=== PATIENT | female | born 1935 | race Caucasian/White ===

== ENCOUNTER 2016-10-06 19:02 | Emergency (ER) | payer MEDICARE, MEDICAID ==
[2016-10-06] MEDS ORDERED: NORMAL SALINE 500 ML IV PRN (20:36)
[2016-10-06] MEDS ORDERED: ONDANSETRON HCL INJ/PF 4 MG/2 ML SDV IV ONE (20:36)
[2016-10-06] MEDS ORDERED: MORPHINE SULFATE 10 MG/ML INJ IV ONE (20:36)
--- NOTE | 2016-10-06 20:37 | ER Document Report ---
ED General - General Chief Complaint: Abdominal Pain Stated Complaint: UPPER ABDOMINAL PAIN Time Seen by Provider: 10/06/16 20:21 Mode of Arrival: Ambulatory Information source: Patient Notes: This is a 80-year-old female with a history of COPD, diabetes, hypertension who presents to the emergency room with acute onset of upper abdominal pain since 1700. Denies nausea, vomiting, blood in the stool. Patient denies fever. PMHx: COPD, DM, HTN MEDS: Isosorbide 30 mg Metoprolol 25 mg BID KCl 10 daily Omeprazole Allopurinol 300 daily Lisinopril 10 mg daily Atorvastatin 40 mg daily NKDA TRAVEL OUTSIDE OF THE [place] IN LAST 30 DAYS: No - HPI Onset: Just prior to arrival Onset/Duration: Gradual Quality of pain: Dull Severity: Moderate Pain Level: 4 Associated symptoms: denies: Chills, Fever, Shortness of breath Exacerbated by: Denies Relieved by: Denies Similar symptoms previously: No Recently seen / treated by doctor: No - Related Data Allergies/Adverse Reactions: Penicillins Allergy (Verified 08/07/12 15:01) rash Past Medical History - General Information source: Patient - Social History Smoking Status: Former Smoker Cigarette use (# per day): No Chew tobacco use (# tins/day): No Frequency of alcohol use: None Drug Abuse: None Lives with: Family Family History: Other Patient has suicidal ideation: No Patient has homicidal ideation: No - Past Medical History Cardiac Medical History: Reports: Hx Congestive Heart Failure, Hx Hypercholesterolemia, Hx Hypertension Denies: Hx DVT Pulmonary Medical History: Denies: Hx Tuberculosis Endocrine Medical History: Reports: Hx Diabetes Mellitus Type 2 Malignancy Medical History: Reports: Hx Breast Cancer - LEFT MASTECTOMY GI Medical History: Reports: Hx Gastroesophageal Reflux Disease Musculoskeltal Medical History: Reports Hx Arthritis Psychiatric Medical History: Reports: Hx Bipolar Disorder, Hx Depression Past Surgical History: Reports: Hx Mastectomy - left side. Denies: Hx Pacemaker - Immunizations Hx Diphtheria, Pertussis, Tetanus Vaccination: No Review of Systems - Review of Systems Constitutional: denies: Chills, Fever EENT: No symptoms reported Cardiovascular: No symptoms reported Respiratory: No symptoms reported Gastrointestinal: See HPI Genitourinary: No symptoms reported Female Genitourinary: No symptoms reported Musculoskeletal: No symptoms reported Skin: No symptoms reported Hematologic/Lymphatic: No symptoms reported Neurological/Psychological: No symptoms reported Physical Exam - Vital signs Vitals: Temp Pulse Resp BP Pulse Ox 98.2 F 82 20 149/75 H 94 10/06/16 20:00 10/06/16 20:00 10/06/16 20:00 10/06/16 20:00 10/06/16 20:00 Notes: Physical exam: GENERAL:80-year-old female, oriented 3, complaining of upper abdominal pain. HEAD: Atraumatic, normocephalic. EYES: Pupils equal round and reactive to light, extraocular movements intact, sclera anicteric, conjunctiva are normal. ENT: TMs normal, nares patent, oropharynx clear without exudates. Moist mucous membranes. NECK: Normal range of motion, supple without lymphadenopathy or JVD. LUNGS: Breath sounds clear to auscultation bilaterally and equal. No wheezes rales or rhonchi. HEART: Regular rate and rhythm without murmurs, rubs or gallops. ABDOMEN: Soft, normoactive bowel sounds. Distended abdomen. She has tenderness in the epigastrium and right upper quadrant. Her lower quadrant seems to be nontender. No guarding without rebound Rectal: Brown stool, sent for study EXTREMITIES: Normal range of motion, no pitting or edema. No clubbing or cyanosis. NEUROLOGICAL: Cranial nerves II through XII grossly intact. Normal speech, normal gait. PSYCH: Normal mood, normal affect. SKIN: Warm, Dry, normal turgor, no rashes or lesions noted. Course - Re-evaluation Re-evalutation: 10/07/16 00:37 NOTE: The patient presents with gallstone pancreatitis. LFTs are elevated consistent with choledocholithiasis. She does not have fever. Her white count is normal. Currently she is n.p.o., and being treated with IV fluids, IV pain medicine, IV antiemetics. I have GI services here at this hospital, so the plan will be to transfer the patient to another facility. I have Contacted [facility] and [facility] and [place] and GI/ERCP services are not available at these to institutions. I have contacted Dr Victoria read over [facility] extremity and they are willing to accept the patient and have her evaluated by GI. Immediately I discussed the plan with the patient and she is agreeable to transfer to [facility] 10/07/16 01:19 - Vital Signs Vital signs: Temp Pulse Resp BP Pulse Ox 98.2 F 101 H 19 128/59 H 94 10/07/16 01:04 10/07/16 01:04 10/07/16 01:04 10/07/16 01:04 10/07/16 01:04 - Laboratory Result Diagrams: 10/06/16 21:00 10/06/16 21:00 Laboratory results interpreted by me: 10/06/16 10/06/16 10/06/16 21:00 21:00 21:00 RDW 17.3 H Seg Neutrophils % 83.7 H Lymphocytes % 8.4 L Absolute Neutrophils 8.8 H Sodium 145.9 H Glucose 177 H Total Bilirubin 1.5 H Direct Bilirubin 1.1 H AST 348 H ALT 187 H Alkaline Phosphatase 230 H Lipase 832.1 H Urine Blood SMALL H Urine Nitrite POSITIVE H - Diagnostic Test Radiology reviewed: Image reviewed, Reports reviewed - Ultrasound shows gallstones. CT of the abdomen shows a dilated common bile duct Critical Care Note - Critical Care Note Total time excluding time spent on procedures (mins): 60 Discharge - Discharge Clinical Impression: Pancreatitis, Gallstones Condition: Stable Disposition: [facility] Referrals: DARREN ALEXANDER, ZENAIDA [Primary Care Provider] - Follow up as needed
[2016-10-06 21:13] LABS: ABSOLUTE BASOPHILS # (AUTO) 0.1 10^3/uL (0.0-0.2); ABSOLUTE EOSINOPHILS # (AUTO) 0.3 10^3/uL (0.0-0.6); ABSOLUTE LYMPHOCYTES (AUTO) 0.9 10^3/uL (0.5-4.7); ABSOLUTE MONOCYTES (AUTO) 0.4 10^3/uL (0.1-1.4); ABSOLUTE NEUT (AUTO) 8.8 10^3/uL (1.7-8.2); BASOPHILS % (AUTO) 0.8 % (0-2); EOSINOPHILS % (AUTO) 3.1 % (0-6); HEMOGLOBIN 12.2 g/dL (12.0-15.5); HGB HCT DIFFERENCE -1.4; LYMPHOCYTES % (AUTO) 8.4 % (13-45); MEAN CORPUSCULAR HEMOGLOBIN 28.9 pg (27.0-33.4); MEAN CORPUSCULAR HGB CONC 32.1 g/dL (32.0-36.0); MEAN CORPUSCULAR VOLUME 90 fl (80-97); RED BLOOD COUNT 4.22 10^6/uL (3.72-5.28); RED CELL DISTRIBUTION WIDTH 17.3 % (11.5-14.0); SEGMENTED NEUTROPHILS % (AUTO) 83.7 % (42-78); WHITE BLOOD COUNT 10.5 10^3/uL (4.0-10.5)
[2016-10-06 21:23] LABS: APPEARANCE,URINE SLIGHTLY-CLOUDY; BILIRUBIN,URINE NEGATIVE (NEGATIVE); GLUCOSE, URINE NEGATIVE (NEGATIVE); KETONES,URINE NEGATIVE (NEGATIVE); LEUKOCYTE ESTERASE,URINE NEGATIVE (NEGATIVE); NITRITE,URINE POSITIVE (NEGATIVE); PROTEIN,URINE NEGATIVE (NEGATIVE); UROBILINOGEN,URINE NEGATIVE mg/dL (<2.0)
[2016-10-06 21:28] LABS: ALANINE AMINOTRANSFERASE 187 U/L (9-52); ALBUMIN 4.5 g/dL (3.5-5.0); ALKALINE PHOSPHATASE 230 U/L (38-126); ANION GAP 17 (5-19); ASPARTATE AMINO TRANSFERASE 348 U/L (14-36); BILIRUBIN,DIRECT 1.1 mg/dL (0.0-0.4); BILIRUBIN,TOTAL 1.5 mg/dL (0.2-1.3); BLOOD UREA NITROGEN 20 mg/dL (7-20); CALCIUM 9.6 mg/dL (8.4-10.2); CARBON DIOXIDE 25 mmol/L (22-30); CHLORIDE 104 mmol/L (98-107); CREATININE RESULT 0.76 mg/dL (0.52-1.25); GLUCOSE 177 mg/dL (75-110); LIPASE 832.1 U/L (23-300); POTASSIUM 3.9 mmol/L (3.6-5.0); SODIUM 145.9 mmol/L (137-145); TOTAL PROTEIN 8.1 g/dL (6.3-8.2)
[2016-10-06 21:29] LABS: PROTHROMBIN TIME 13.4 SEC (11.4-15.4)
[2016-10-06] MEDS ORDERED: NORMAL SALINE 1000 ML 1,000 ML IV PRN (21:30)
--- NOTE | 2016-10-06 23:11 | RADIOLOGY REPORT (SQ) ---
EXAM DESCRIPTION: U/S ABDOMEN LIMITED W/O DOP COMPLETED DATE/TIME: 10/06/2016 10:21 pm REASON FOR STUDY: upper abdominal pain r/o GB disease COMPARISON: None. TECHNIQUE: Dynamic and static grayscale images acquired of the right upper quadrant and recorded on PACS. Additional selected color Doppler and spectral images recorded. LIMITATIONS: Study limited due to acoustical interference from fat or from air in the bowel. FINDINGS: PANCREAS: Parts or all of the pancreas poorly seen secondary to acoustical interference fr om fat or from air in the bowel. LIVER: Echotexture is coarse with increased echogenicity consistent with fatty infiltration. No mass es. LIVER VASCULATURE: Normal directional flow of the main portal vein and hepatic veins. GALLBLADDER: Multiple stones. Normal wall thickness. No pericholecystic fluid. ULTRASOUND-DETECTED BOWEN'S SIGN: Negative. INTRAHEPATIC DUCTS AND COMMON DUCT: CBD and intrahepatic ducts normal caliber. No filling defects. INFERIOR VENA CAVA: Normal flow. AORTA: No aneurysm. RIGHT KIDNEY: Normal size. Normal echogenicity. No solid or suspicious masses. No hydronephrosis. No calcifications. PERITONEAL CAVITY AND RIGHT PLEURAL SPACE: No ascites or effusions. OTHER: Stomach filled with debris-food. IMPRESSION: Gallstones. No acute inflammatory changes in the right upper quadrant.FATTY LIVER. PANC REAS PARTIALLY OR COMPLETELY OBSCURED. TECHNICAL DOCUMENTATION: JOB ID: [id number] [employer]- All Rights Reserved
--- NOTE | 2016-10-07 00:21 | RADIOLOGY REPORT (SQ) ---
EXAM DESCRIPTION: CT ABD/PELVIS WITH IV ONLY COMPLETED DATE/TIME: 10/06/2016 11:41 pm REASON FOR STUDY: abd pain COMPARISON: None. TECHNIQUE: CT scan of the abdomen and pelvis performed using helical scanning technique with dynamic intravenous contrast injection. No oral contrast. Images reviewed with lung, soft tissue, and bone windows. Reconstructed coronal and sagittal MPR images reviewed. Delayed images for evaluation of the urinary system also acquired. All images stored on PACS. All CT scanners at this facility use dose modulation, iterative reconstruction, and/or weight based d osing when appropriate to reduce radiation dose to as low as reasonably achievable (ALARA). [facility]: Dose Right [facility]: CareDose [facility]: Dose Right [facility]: Teradose 4D [facility]: [employer] CONTRAST TYPE AND DOSE: contrast/concentration: Isovue 370.00 mg/ml; Total Contrast Delivered: 100.0 ml; Total Saline Delivered: 72.0 ml RENAL FUNCTION: Creatinine 0.8 RADIATION DOSE: 2195 LIMITATIONS: None. FINDINGS: LOWER CHEST: No significant findings. No nodules or infiltrates. Small coronary arterial calcification. Small atelectasis or scar bilateral lower lobes. LIVER: Normal size. No masses. Minimal prominence of intrahepatic ducts. SPLEEN: Normal size. No focal lesions. PANCREAS: No masses. No significant calcifications. No adjacent inflammation or peripancreatic fluid collections. Pancreatic duct not dilated. GALLBLADDER: Gallstones. No inflammatory changes to suggest cholecystitis. 0.[address] du [address]. ADRENAL GLANDS: 1.4 cm likely left adrenal adenoma without suspicious interval change compared with [facility] CT, 07/18/2014. RIGHT KIDNEY AND URETER: No solid masses. No significant calcifications. No hydronephrosis or hyd roureter. Mild perinephric fat stranding. LEFT KIDNEY AND URETER: No solid masses. No significant calcifications. No hydronephrosis or hydr oureter. Mild perinephric fat stranding. AORTA AND VESSELS: No aneurysm. No dissection. Renal arteries, SMA, celiac without stenosis. Atheros clerosis. RETROPERITONEUM: No retroperitoneal adenopathy, hemorrhage or masses. BOWEL AND PERITONEAL CAVITY: No masses or inflammatory changes. No free fluid or peritoneal masses. Bucp-dz-hycrihcc lymphadenopathy of the upper abdomen anterior to the IVC measures 1.5 cm without galina picious interval change. APPENDIX: No evidence of acute appendicitis. PELVIS: No mass or free fluid. Normal bladder. ABDOMINAL WALL: No masses. No hernias. BONES: Moderate -severe disc desiccation. OTHER: No other significant finding. IMPRESSION: Cholelithiasis. New mild dilation of the common bile duct measuring 0.9 cm in diameter. TECHNICAL DOCUMENTATION: JOB ID: [id number] Quality ID # [id number]: Final reports with documentation of one or more dose reduction techniques (e.g., Au tomated exposure control, adjustment of the mA and/or kV according to patient size, use of iterative reconstruction technique) 2010 [employer]- All Rights Reserved
[2016-10-07 08:05] VITALS: BP 142/79
== END 2016-10-07 08:10 | disposition short-term general hospital (02) ==
LOC: ER 19:02
DX: K85.90 Acute pancreatitis without necrosis or infection, unspecified (principal); K80.80 Other cholelithiasis without obstruction; R10.10 Upper abdominal pain, unspecified; J44.9 Chronic obstructive pulmonary disease, unspecified; E11.9 Type 2 diabetes mellitus without complications; I50.9 Heart failure, unspecified; I11.0 Hypertensive heart disease with heart failure; Z88.0 Allergy status to penicillin; Z87.891 Personal history of nicotine dependence; Z85.3 Personal history of malignant neoplasm of breast; Z90.12 Acquired absence of left breast and nipple; K21.9 Gastro-esophageal reflux disease without esophagitis
CPT/HCPCS: 99291; 96361; 96374; 96375; 36415; 83690; 85025; 85610; 82272; 80053; 81001; 76705; 74177; J2270; J2405; J7030; J7040

== ENCOUNTER 2017-01-06 03:24 | Inpatient (IN) | payer MEDICARE, MEDICAID ==
[2017-01-06 03:43] LABS: ABSOLUTE EOSINOPHILS # (AUTO) 0.5 10^3/uL (0.0-0.6); ABSOLUTE LYMPHOCYTES (AUTO) 2.4 10^3/uL (0.5-4.7); ABSOLUTE MONOCYTES (AUTO) 0.6 10^3/uL (0.1-1.4); ABSOLUTE NEUT (AUTO) 6.8 10^3/uL (1.7-8.2); BASOPHILS % (AUTO) 0.5 % (0-2); EOSINOPHILS % (AUTO) 4.6 % (0-6); HEMATOCRIT 29.9 % (36.0-47.0); HGB HCT DIFFERENCE 0.1; LYMPHOCYTES % (AUTO) 22.9 % (13-45); MEAN CORPUSCULAR HEMOGLOBIN 29.5 pg (27.0-33.4); MEAN CORPUSCULAR HGB CONC 33.6 g/dL (32.0-36.0); MEAN CORPUSCULAR VOLUME 88 fl (80-97); RED BLOOD COUNT 3.41 10^6/uL (3.72-5.28); RED CELL DISTRIBUTION WIDTH 17.4 % (11.5-14.0); WHITE BLOOD COUNT 10.3 10^3/uL (4.0-10.5)
--- NOTE | 2017-01-06 03:49 | ER Document Report ---
ED Respiratory Problem - General TRAVEL OUTSIDE OF THE [place] IN LAST 30 DAYS: No <BRITTANY ABAD - Last Filed: 01/06/17 03:53> <FELIX VALDEZ - Last Filed: 01/06/17 07:42> - General Chief Complaint: Respiratory Distress Stated Complaint: DIFFICULTY BREATHING Time Seen by Provider: 01/06/17 03:43 Notes: 81-year-old female with history of COPD presents after developing shortness of breath about 2 PM. She reports fairly abrupt onset of dyspnea. She usually is oxygen dependent with 2 L/min nasal cannula. EMS reported initial respiratory rate of 50-60 and O2 sat at 65%. She received an albuterol and Atrovent on the way to the emergency department and was placed on CPAP. Patient states she is feeling somewhat better at this point. She does admit to cough. There is a little bit of protection. No hemoptysis. She has not had syncope denies any chest discomfort. No other alleviating or exacerbating symptoms. (BRITTANY ABAD) - Related Data Allergies/Adverse Reactions: Penicillins Allergy (Verified 08/07/12 15:01) rash Past Medical History - Social History Smoking Status: Former Smoker Family History: Reviewed & Not Pertinent, Other - Past Medical History Cardiac Medical History: Reports: Hx Congestive Heart Failure, Hx Hypercholesterolemia, Hx Hypertension Denies: Hx DVT Pulmonary Medical History: Denies: Hx Tuberculosis Endocrine Medical History: Reports: Hx Diabetes Mellitus Type 2 Malignancy Medical History: Reports: Hx Breast Cancer - LEFT MASTECTOMY GI Medical History: Reports: Hx Gastroesophageal Reflux Disease Musculoskeltal Medical History: Reports Hx Arthritis Psychiatric Medical History: Reports: Hx Bipolar Disorder, Hx Depression Past Surgical History: Reports: Hx Mastectomy - left side. Denies: Hx Pacemaker - Immunizations Hx Diphtheria, Pertussis, Tetanus Vaccination: No <BRITTANY ABAD - Last Filed: 01/06/17 03:53> Review of Systems - Review of Systems -: Yes All other systems reviewed and negative <BRITTANY ABAD - Last Filed: 01/06/17 03:53> Physical Exam <BRITTANY ABAD - Last Filed: 01/06/17 03:53> <FELIX VALDEZ - Last Filed: 01/06/17 07:42> - Vital signs Vitals: Resp Pulse Ox 22 H 91 L 01/06/17 03:29 01/06/17 03:29 - Notes Notes: Physical Exam: GENERAL: VS as per nursing doc. Well-appearing, well-nourished and in no acute distress. On BiPAP and talking in full sentences HEAD: Atraumatic, normocephalic. EYES: Pupils equal round and reactive to light, extraocular movements intact, sclera anicteric, no conjunctival injection or discharge. ENT: Oropharynx clear without exudates. Moist mucous membranes. NECK: Supple without lymphadenopathy. LUNGS: Breath sounds decreased bilaterally but fairly good movement overall with mild wheezing and fine basilar rales HEART: Normal S1S2. Regular rate and rhythm with 3/6 systolic murmur. Equal peripheral pulses. ABDOMEN: Soft, non-tender. EXTREMITIES: Normal range of motion. No calf tenderness. Trace bilateral edema. NEUROLOGICAL: Cranial nerves grossly intact. Normal speech. Normal sensory and motor exams. No gross cerebellar abnormalities. PSYCH: Normal mood, normal affect. SKIN: Warm, dry, no cyanosis, no splinter hemorrhages. Cap refill < 2 sec. (BRITTANY ABAD) Course - Laboratory Result Diagrams: 01/06/17 03:30 01/06/17 03:30 - EKG Interpretation by Ga EKG shows normal: Sinus rhythm Rhythm: NSR - Rate 86, left ventricular hypertrophy with repolarization abnormalities. Compared to November 2011 rate has increased and LVH has developed. <BRITTANY ABAD - Last Filed: 01/06/17 03:53> - Laboratory Result Diagrams: 01/06/17 03:30 01/06/17 03:30 <FELIX VALDEZ - Last Filed: 01/06/17 07:42> - Re-evaluation Re-evalutation: 01/06/17 07:41 Patient was taken off BiPAP for CT and decompensated significantly, she was placed back on BiPAP. CTA does note pleural effusions. Patient will be admitted to the hospitalist service (FELIX VALDEZ) - Vital Signs Vital signs: Temp Pulse Resp BP Pulse Ox 98.4 F 31 H 136/116 H 96 01/06/17 06:24 01/06/17 07:00 01/06/17 07:01 01/06/17 07:01 - Laboratory Laboratory results interpreted by me: 01/06/17 01/06/17 01/06/17 03:30 03:30 03:30 RBC 3.41 L Hgb 10.0 L Hct 29.9 L RDW 17.4 H Sodium 146.5 H BUN 23 H Glucose 212 H Creatine Kinase 23 L NT-Pro-B Natriuret Pep 491 H Urine Protein Urine Glucose (UA) Urine Blood Ur Leukocyte Esterase 01/06/17 05:54 RBC Hgb Hct RDW Sodium BUN Glucose Creatine Kinase NT-Pro-B Natriuret Pep Urine Protein 100 H Urine Glucose (UA) 50 H Urine Blood MODERATE H Ur Leukocyte Esterase MODERATE H Critical Care Note <BRITTANY ABAD - Last Filed: 01/06/17 03:53> - Critical Care Note Total time excluding time spent on procedures (mins): 34 <FELIX VALDEZ - Last Filed: 01/06/17 07:42> - Critical Care Note Comments: 34 minutes of critical care time spent in direct contact evaluating and reevaluating the patient, treating symptoms, reviewing labs and studies and speaking with family and consultants excluding any procedures (FELIX VALDEZ ) Discharge <BRITTANY ABAD - Last Filed: 01/06/17 03:53> - Discharge Admitting Provider: Hospitalist Unit Admitted: IMCU <FELIX VALDEZ - Last Filed: 01/06/17 07:42> - Discharge Clinical Impression: Hypoxemia, Respiratory distress, Congestive heart failure Condition: Serious Disposition: ADMITTED INPATIENT
[2017-01-06 03:59] LABS: VENOUS BLOOD BASE EXCESS 4.3 mmol/L; VENOUS BLOOD HCO3 30.1 mmol/L (20-32); VENOUS BLOOD PCO2 51.3 mmHg (35-63); VENOUS BLOOD PH 7.39 (7.30-7.42)
[2017-01-06 04:08] LABS: ALANINE AMINOTRANSFERASE 21 U/L (9-52); ALBUMIN 4.1 g/dL (3.5-5.0); ALKALINE PHOSPHATASE 89 U/L (38-126); ANION GAP 15 (5-19); ASPARTATE AMINO TRANSFERASE 18 U/L (14-36); BILIRUBIN,DIRECT 0.4 mg/dL (0.0-0.4); BILIRUBIN,TOTAL 0.5 mg/dL (0.2-1.3); BLOOD UREA NITROGEN 23 mg/dL (7-20); CALCIUM 9.5 mg/dL (8.4-10.2); CARBON DIOXIDE 29 mmol/L (22-30); CHLORIDE 103 mmol/L (98-107); CREATINE KINASE 23 U/L (30-135); CREATININE RESULT 0.69 mg/dL (0.52-1.25); GLUCOSE 212 mg/dL (75-110); POTASSIUM 4.2 mmol/L (3.6-5.0); SODIUM 146.5 mmol/L (137-145); TOTAL PROTEIN 7.3 g/dL (6.3-8.2)
[2017-01-06 04:20] LABS: CREATINE KINASE MB 0.73 ng/mL (<4.55); TROPONIN I 0.014 ng/mL
--- NOTE | 2017-01-06 05:00 | RADIOLOGY REPORT (SQ) ---
EXAM DESCRIPTION: CHEST SINGLE VIEW COMPLETED DATE/TIME: 01/06/2017 4:11 am REASON FOR STUDY: difficulty breathing COMPARISON: 11/26/2011. EXAM PARAMETERS: NUMBER OF VIEWS: One view. TECHNIQUE: Single frontal radiographic view of the chest acquired. RADIATION DOSE: NA LIMITATIONS: None. FINDINGS: LUNGS AND PLEURA: Moderate interstitial markings. MEDIASTINUM AND HILAR STRUCTURES: No masses. Contour normal. HEART AND VASCULAR STRUCTURES: Mild enlargement of the cardiac silhouette. Atherosclerosis. BONES: Deformity of the right 6th posterolateral rib. Moderate disc desiccation. HARDWARE: None in the chest. OTHER: No other significant finding. IMPRESSION: Stable chronic interstitial lung markings which may indicate chronic interstitial lung d isease and/or recurrent pulmonary edema. TECHNICAL DOCUMENTATION: JOB ID: [id number]
[2017-01-06 06:16] LABS: APPEARANCE,URINE TURBID; BILIRUBIN,URINE NEGATIVE (NEGATIVE); GLUCOSE, URINE 50 mg/dL (NEGATIVE); KETONES,URINE NEGATIVE (NEGATIVE); LEUKOCYTE ESTERASE,URINE MODERATE (NEGATIVE); NITRITE,URINE NEGATIVE (NEGATIVE); PROTEIN,URINE 100 mg/dL (NEGATIVE); URINE SPECIFIC GRAVITY 1.021; UROBILINOGEN,URINE NEGATIVE mg/dL (<2.0)
--- NOTE | 2017-01-06 06:58 | RADIOLOGY REPORT (SQ) ---
EXAM DESCRIPTION: CTA CHEST COMPLETED DATE/TIME: 01/06/2017 6:16 am REASON FOR STUDY: Hypoxia, respiratory distress COMPARISON: None. TECHNIQUE: CT scan of the chest performed using helical scanning technique with dynamic intravenous contrast injection. Images reviewed with lung, soft tissue and bone windows. Reconstructed coronal and sagittal MPR images reviewed. Additional 3 dimensional post-processing performed to develop Maximal Intensity Projection images ([place] P). All images stored on PACS. All CT scanners at this facility use dose modulation, iterative reconstruction, and/or weight based d osing when appropriate to reduce radiation dose to as low as reasonably achievable (ALARA). [facility]: Dose Right [facility]: CareDose [facility]: Dose Right [facility]: Teradose 4D [facility]: [employer] CONTRAST TYPE AND DOSE: contrast/concentration: Isovue 370.00 mg/ml; Total Contrast Delivered: 81.0 ml; Total Saline Delivered: 102.0 ml Contrast bolus optimized for the pulmonary arteries. Not diagnostic for the aorta. RENAL FUNCTION: Creatinine 0.7 RADIATION DOSE: Up-to-date CT equipment and radiation dose reduction techniques were employed. CTDIv ol: 24.8 - 41.0 mGy. DLP: 1547 mGy-cm. . LIMITATIONS: None. FINDINGS: LUNGS AND PLEURA: Small right pleural effusion. Small bibasilar atelectasis. Moderate mi xed interstitial and airspace opacities suggestive of pulmonary edema. AORTA AND GREAT VESSELS: No aneurysm. Contrast bolus not optimized for the aorta. HEART: No pericardial effusion. No significant coronary artery calcifications. PULMONARY ARTERIES: No emboli visualized in the main pulmonary arteries or the segmental branches. 3 .8 cm diameter enlargement of the pulmonary outflow tract consistent with pulmonary arterial hyperten arti. HILAR AND MEDIASTINAL STRUCTURES: Moderate mediastinal lymphadenopathy includes a precarinal lymph no de measuring 2.5 x 0.7 cm compared with prior measurement of 2.3 x 0.7 cm, 11/26/2011. HARDWARE: None in the chest. UPPER ABDOMEN: Likely 1.6 cm left adrenal adenoma. THYROID AND OTHER SOFT TISSUES: Enlarged thyroid with multiple lesions with calcification partially i kenneth appear generally increased compared with prior partial CT appearance, 11/26/2011. BONES: Right posterior 6th rib deformity, chronic. [id number] thoracic disc desiccation. Vacu um disc desiccation at the thoracolumbar junction. 3D MIPS: Confirm above findings. OTHER: Left mastectomy. IMPRESSION: 1. Moderate pulmonary edema pattern. Differential diagnosis includes CHF, multifocal p neumonia, lymphangitic spread of tumor, and/or chronic interstitial lung disease. 2. Pulmonary rose marie rial hypertension. No evidence of pulmonary embolus. 3. Indeterminate thyroid lesions ; thyroid so nogram recommended. COMMENT: Quality ID # [id number]: Final reports with documentation of one or more dose reduction techniques (e.g., Automated exposure control, adjustment of the mA and/or kV according to patient size, use of iterative reconstruction technique) TECHNICAL DOCUMENTATION: JOB ID: [id number]- All Rights Reserved
[2017-01-06] MEDS ORDERED: FUROSEMIDE INJ/PF 20 MG/2 ML SDV ONE (08:20)
[2017-01-06] MEDS ORDERED: ACETAMINOPHEN 325 MG TABLET PO PRN (08:39)
[2017-01-06] MEDS ORDERED: MAG HYDROX/AL HYDROX/SIMETH SUSP 30 ML UDCUP PO PRN (08:39)
[2017-01-06] MEDS ORDERED: MAGNESIUM HYDROXIDE SUSP 30 ML UDCUP PO PRN (08:39)
[2017-01-06] MEDS ORDERED: ONDANSETRON HCL INJ/PF 4 MG/2 ML SDV IV PRN (08:39)
[2017-01-06] MEDS ORDERED: ASPIRIN 81 MG TABLET, CHEWABLE PO ONE (09:30)
[2017-01-06] MEDS ORDERED: NITROGLYCERIN 2% OINTMENT 1 GM PACKET TP ONE (10:00)
[2017-01-06] MEDS ORDERED: LISINOPRIL 10 MG TABLET PO SCH (10:00)
[2017-01-06] MEDS ORDERED: FUROSEMIDE INJ/PF 20 MG/2 ML SDV IV ONE (10:00)
[2017-01-06] MEDS: POTASSIUM CHLORIDE 10 MEQ TABLET.SA PO SCH (10:09)
[2017-01-06] MEDS: DOCUSATE SODIUM 100 MG CAPSULE PO SCH (10:10)
[2017-01-06] MEDS: CEFTRIAXONE 1 GM/D5W RTU 1 GM/50 ML RTUPB IV SCH (10:15)
[2017-01-06] MEDS: ENOXAPARIN SODIUM INJ 40 MG/0.4 ML DISP.SYRIN SUBCUT SCH (10:18)
[2017-01-06 11:27] LABS: CREATINE KINASE MB 0.91 ng/mL (<4.55); TROPONIN I 0.029 ng/mL
--- NOTE | 2017-01-06 11:42 | EKG REPORT ---
SEVERITY:- ABNORMAL ECG - SINUS RHYTHM LVH WITH SECONDARY REPOLARIZATION ABNORMALITY : Confirmed by: Ortiz Brower 06-Jan-2017 11:41:47
[2017-01-06] MEDS ORDERED: DEXTROSE 40% GEL 15 GM TUBE PO PRN ×2 (11:50)
[2017-01-06] MEDS ORDERED: DEXTROSE 50%-WATER 25 GM/50 ML DISP.SYRIN IV PRN ×2 (11:50)
[2017-01-06] MEDS ORDERED: GLUCAGON,HUMAN RECOMB 1 MG INJ IM PRN (11:50)
[2017-01-06] MEDS: INSULIN LISPRO 100 UNIT/ML 3 ML VIAL SUBCUT PRN ×2 (12:45→22:59)
[2017-01-06] MEDS ORDERED: FUROSEMIDE INJ/PF 20 MG/2 ML SDV IV SCH (14:00)
[2017-01-06] MEDS ORDERED: NITROGLYCERIN 2% OINTMENT 1 GM PACKET TP SCH (15:00)
[2017-01-06] MEDS ORDERED: IPRATROPIUM/ALBUTEROL 0.5-2.5 MG/3 ML AMPUL NEB PRN (15:56)
[2017-01-06] MEDS ORDERED: NORMAL SALINE 1000 ML 250 ML IV ONE (15:56)
[2017-01-06 16:09] LABS: CREATINE KINASE MB 1.18 ng/mL (<4.55); TROPONIN I 0.03 ng/mL
[2017-01-06] MEDS: METFORMIN HCL 500 MG TABLET PO SCH (17:26)
[2017-01-06] MEDS: FERROUS SULFATE 325 MG TABLET PO SCH (17:26)
[2017-01-06] MEDS: AZITHROMYCIN 250 MG TABLET PO SCH (17:27)
[2017-01-06] MEDS: FUROSEMIDE INJ/PF 20 MG/2 ML SDV IV SCH (17:28)
[2017-01-06] MEDS: LANSOPRAZOLE 15 MG TAB.RAP.DR PO SCH (17:28)
[2017-01-06] MEDS ORDERED: HYDRALAZINE HCL INJ/PF 20 MG/1 ML SDV IV PRN (17:53)
--- NOTE | 2017-01-06 17:55 | PDOC H&P ---
History of Present Illness Admission Date/PCP: 01/06/17 08:40 History of Present Illness: TRISTEN SOW is a 81 year old female with a past medical history of coronary artery disease, diabetes mellitus, bipolar disorder, gout, COPD, hyperlipidemia , hypertension, congestive heart failure, breast cancer, GERD, and gallstone pancreatitis who presents to the emergency department with complaints of shortness of breath. She reports that it was 2 AM and she was attempting to sleep but was unable to catch her breath. She reports that she uses oxygen at home. She reports increasing dyspnea on exertion, white sputum. She reports seeing her PCP as last Sunday who prescribed Lasix for her. She reports she saw oncology last week inconsistent. She is unable to tell me anything about her oncology appointment. Patient reports her last bowel movement was this morning and denies hematochezia or melena. She denies any nausea vomiting. She reports some subjective fevers but no chills and foul-smelling urine. Patient is currently on BiPAP limiting some of our discussion due to her breathlessness. Patient is referred to the hospitalist service for congestive heart failure exacerbation. Past Medical History Past Medical History: coronary artery disease, diabetes mellitus, bipolar disorder, gout, COPD, hyperlipidemia, hypertension, congestive heart failure, breast cancer, GERD, and gallstone pancreatitis Cardiac Medical History: Reports: Congestive Heart Failure, Hyperlipidema, Hypertension Denies: DVT Pulmonary Medical History: Denies: Tuberculosis Endocrine Medical History: Reports: Diabetes Mellitus Type 2 Malignancy Medical History: Reports: Breast Cancer - LEFT MASTECTOMY GI Medical History: Reports: Gastroesophageal Reflux Disease Musculoskeltal Medical History: Reports: Arthritis Psychiatric Medical History: Reports: Bipolar Disorder, Depression Past Surgical History Past Surgical History: Reports: Cholecystectomy, Mastectomy - left side Denies: Pacemaker Social History Smoking Status: Former Smoker Frequency of Alcohol Use: None Hx Recreational Drug Use: No Hx Prescription Drug Abuse: No - Advance Directive Resuscitation Status: Do Not Resuscitate Surrogate healthcare decision maker:: Kaity Castro, daughter Family History Family History: DM, Other - Kidney disease Parental Family History Reviewed: Yes Children Family History Reviewed: Yes Sibling(s) Family History Reviewed.: Yes Medication/Allergy Home Medications: Allopurinol [Zyloprim 300 mg Tablet] 300 mg PO DAILY 01/06/17 Atorvastatin Calcium [Lipitor 40 mg Tablet] 40 mg PO DAILY 01/06/17 Ferrous Sulfate [Feosol 325 mg Tablet] 325 mg PO BID 01/06/17 Isosorbide Mononitrate [Isosorbide Mononitrate ER] 30 mg PO QAM 01/06/17 Lisinopril [Prinivil 10 mg Tablet] 10 mg PO DAILY 01/06/17 Magnesium Oxide [Mag-Ox 400 mg Tablet] 400 mg PO QAM 01/06/17 Metformin HCl [Glucophage 500 mg Tablet] 500 mg PO BID 01/06/17 Metoprolol Tartrate [Lopressor 25 mg Tablet] 25 mg PO Q12 01/06/17 Omeprazole 20 mg PO BID 01/06/17 Potassium Chloride [Klor-Con 10 Meq Tablet.sa] 10 meq PO DAILY 01/06/17 Quetiapine Fumarate [Seroquel] 50 mg PO QHS 01/06/[address] Tiotropium [place] [Spiriva Handihaler 5 Cap/Kit (18 Mcg/Cap)] 1 puff IH DAILY 01/06/17 Ubidecarenone/Vit E Acet [Co Q-10 100 mg Softgel] 1 cap PO DAILY 01/06/17 Allergies/Adverse Reactions: Penicillins Adverse Reaction (Verified 01/06/17 08:45) Hallucinations Review of Systems Constitutional: PRESENT: chills, fatigue, fever(s), weight gain. ABSENT: headache(s), weight loss Eyes: ABSENT: visual disturbances Ears: ABSENT: hearing changes Cardiovascular: PRESENT: dyspnea on exertion, orthropnea. ABSENT: chest pain, edema, palpitations Respiratory: PRESENT: cough, dyspnea, sputum. ABSENT: hemoptysis Gastrointestinal: ABSENT: abdominal pain, constipation, diarrhea, hematemesis, hematochezia, melena, nausea, vomiting Genitourinary: PRESENT: dysuria. ABSENT: hematuria Musculoskeletal: ABSENT: joint swelling Integumentary: ABSENT: rash, wounds Neurological: ABSENT: abnormal gait, abnormal speech, confusion, dizziness, focal weakness, syncope Psychiatric: ABSENT: anxiety, depression, homidical ideation, suicidal ideation Endocrine: ABSENT: cold intolerance, heat intolerance, polydipsia, polyuria Hematologic/Lymphatic: ABSENT: easy bleeding, easy bruising Physical Exam Vital Signs: Temp Pulse Resp BP Pulse Ox 98.6 F 86 20 156/60 H 92 01/06/17 15:31 01/06/17 15:31 01/06/17 15:31 01/06/17 16:02 01/06/17 15:31 Intake & Output 01/05/17 01/06/17 01/07/17 06:59 06:59 06:59 Output Total 900 Balance -900 General appearance: PRESENT: morbidly obese, severe distress - Dyspnea on BiPAP , well-developed, well-nourished Head exam: PRESENT: atraumatic, normocephalic Eye exam: PRESENT: conjunctiva pink, EOMI, PERRLA. ABSENT: scleral icterus Ear exam: PRESENT: normal external ear exam Mouth exam: PRESENT: moist, tongue midline Neck exam: PRESENT: JVD. ABSENT: lymphadenopathy, thyromegaly, tracheal deviation Respiratory exam: PRESENT: accessory muscle use, rales, symmetrical, tachypnea. ABSENT: crackles, retraction, rhonchi, unlabored, wheezes Cardiovascular exam: PRESENT: RRR, +S1, +S2, systolic murmur - 3/6 sm. ABSENT: diastolic murmur, rubs Pulses: PRESENT: normal dorsalis pedis pul Vascular exam: PRESENT: normal capillary refill GI/Abdominal exam: PRESENT: ascites, distended, normal bowel sounds, soft. ABSENT: firm, guarding, mass, Burr's sign, organolmegaly, rebound, rigid, tenderness Rectal exam: PRESENT: deferred Extremities exam: PRESENT: full ROM, +1 edema. ABSENT: calf tenderness, clubbing Neurological exam: PRESENT: alert, awake, oriented to person, oriented to place , oriented to time, oriented to situation, CN II-XII grossly intact. ABSENT: motor sensory deficit Psychiatric exam: PRESENT: appropriate affect, normal mood. ABSENT: homicidal ideation, suicidal ideation Skin exam: PRESENT: dry, intact, warm. ABSENT: cyanosis, rash Results Laboratory Results: 01/06/17 01/06/17 01/06/17 10:47 10:47 15:30 Creatine Kinase 25 L 28 L CK-MB (CK-2) 0.91 Troponin I 0.029 01/06/17 15:30 Creatine Kinase CK-MB (CK-2) 1.18 Troponin I 0.030 Impressions: Chest X-Ray 01/06/17 03:25 IMPRESSION: Stable chronic interstitial lung markings which may indicate chronic interstitial lung disease and/or recurrent pulmonary edema. Chest/Abdomen CTA 01/06/17 05:14 IMPRESSION: 1. Moderate pulmonary edema pattern. Differential diagnosis includes CHF, multifocal pneumonia, lymphangitic spread of tumor, and/or chronic interstitial lung disease. 2. Pulmonary arterial hypertension. No evidence of pulmonary embolus. 3. Indeterminate thyroid lesions ; thyroid sonogram recommended. Assessment & Plan - Diagnosis (1) Acute diastolic (congestive) heart failure Is this a current diagnosis for this admission?: Yes Plan: Obtain echo. Concern for systolic heart failure in the presence of valvular heart disease. Patient however has a history of coronary artery disease and suspect patient has underlying diastolic heart failure. In discussing with patient, she was placed on Lasix as an outpatient and has failed this modality of treatment. Will require inpatient admission for diuresis and echocardiogram. Generic Name Dose Route Start Last Admin Trade Name Freq PRN Reason Stop Dose Admin Aspirin 325 mg 01/07/17 10:00 Ecotrin 325 Mg Ec Tablet PO 02/06/17 09:59 DAILY RADHA Atorvastatin Calcium 40 mg 01/07/17 10:00 Lipitor 40 Mg Tablet PO 02/06/17 09:59 DAILY [facility] Furosemide 20 mg 01/06/17 18:00 01/06/17 17:28 Lasix Inj/Pf 20 Mg/2 Ml Sdv IV 02/05/17 13:59 20 mg Q8A RADHA Isosorbide Mononitrate 30 mg 01/07/17 08:00 Imdur 30 Mg Tablet.Er PO 02/06/17 07:59 QAM RADHA Lisinopril 10 mg 01/07/17 10:00 Prinivil 10 Mg Tablet PO 02/06/17 09:59 DAILY [facility] Metoprolol Tartrate 25 mg 01/06/17 22:00 Lopressor 25 Mg Tablet PO 02/05/17 21:59 Q12 RADHA (2) Acute hypoxemic respiratory failure Is this a current diagnosis for this admission?: Yes Plan: BiPAP as needed and use oxygen to maintain saturation greater than 93 (3) UTI (urinary tract infection) Qualifiers: Urinary tract infection type: acute cystitis Hematuria presence: with hematuria Qualified Code(s): N30.01 - Acute cystitis with hematuria Is this a current diagnosis for this admission?: Yes Plan: Place patient on Rocephin and sent culture (4) Pulmonary artery hypertension Is this a current diagnosis for this admission?: Yes (5) Hypertensive emergency Is this a current diagnosis for this admission?: Yes Plan: Place patient on lisinopril, nitroglycerin, metoprolol, and add hydralazine as needed (6) Anemia Qualifiers: Anemia type: unspecified type Qualified Code(s): D64.9 - Anemia, unspecified Is this a current diagnosis for this admission?: Yes Plan: Monitor and transfuse if drops below 8 (7) Diabetes mellitus Qualifiers: Diabetes mellitus type: type 2 Diabetes mellitus complication status: with unspecified complications Diabetes mellitus buttermaker insulin use: without buttermaker use Qualified Code(s): E11.8 - Type 2 diabetes mellitus with unspecified complications Is this a current diagnosis for this admission?: Yes Plan: Check hemoglobin A1c. Place patient on sliding scale insulin and continue metformin - Time Time Spent: 50 to 70 Minutes Medications reviewed and adjusted accordingly: Yes - Inpatient Certification Based on my medical assessment, after consideration of the patient's comorbidities, presenting symptoms, or acuity I expect that the services needed warrant INPATIENT care.: Yes I certify that my determination is in accordance with my understanding of Medicare's requirements for reasonable and necessary INPATIENT services [42 CFR 412.3e].: Yes Medical Necessity: Failure to Improve With Outpatient Therapy, Need For Continuous Telemetry Monitoring, Risk of Complication if Not Cared For in Hospital Post 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
[2017-01-06] MEDS: QUETIAPINE FUMARATE 25 MG TABLET PO SCH (21:37)
[2017-01-06] MEDS: METOPROLOL TARTRATE 25 MG TABLET PO SCH (21:38)
[2017-01-06] MEDS ORDERED: (PENDING PHARMACY ID) (Quetiapine Fumarate [Seroquel] 50 MG) PO SCH (22:00)
[2017-01-06 22:55] LABS: CREATINE KINASE MB 1.51 ng/mL (<4.55); TROPONIN I 0.033 ng/mL
[2017-01-07] MEDS: FUROSEMIDE INJ/PF 20 MG/2 ML SDV IV SCH ×3 (01:31→17:47)
[2017-01-07] MEDS: LANSOPRAZOLE 15 MG TAB.RAP.DR PO SCH ×2 (05:22→17:48)
[2017-01-07 05:53] LABS: ABSOLUTE EOSINOPHILS # (AUTO) 0.1 10^3/uL (0.0-0.6); ABSOLUTE LYMPHOCYTES (AUTO) 2.1 10^3/uL (0.5-4.7); ABSOLUTE MONOCYTES (AUTO) 0.7 10^3/uL (0.1-1.4); ABSOLUTE NEUT (AUTO) 6.4 10^3/uL (1.7-8.2); BASOPHILS % (AUTO) 0.2 % (0-2); HEMATOCRIT 26.2 % (36.0-47.0); HEMOGLOBIN 8.8 g/dL (12.0-15.5); HGB HCT DIFFERENCE 0.2; LYMPHOCYTES % (AUTO) 22.3 % (13-45); MEAN CORPUSCULAR HEMOGLOBIN 29.4 pg (27.0-33.4); MEAN CORPUSCULAR HGB CONC 33.8 g/dL (32.0-36.0); MEAN CORPUSCULAR VOLUME 87 fl (80-97); MONOCYTES % (AUTO) 7.8 % (3-13); RED BLOOD COUNT 3.01 10^6/uL (3.72-5.28); RED CELL DISTRIBUTION WIDTH 17.3 % (11.5-14.0); SEGMENTED NEUTROPHILS % (AUTO) 68.7 % (42-78); WHITE BLOOD COUNT 9.3 10^3/uL (4.0-10.5)
[2017-01-07 06:12] LABS: ANION GAP 13 (5-19); BLOOD UREA NITROGEN 46 mg/dL (7-20); CALCIUM 9.6 mg/dL (8.4-10.2); CARBON DIOXIDE 30 mmol/L (22-30); CHLORIDE 102 mmol/L (98-107); CHOLESTEROL 171.73 mg/dL (0-200); CREATININE RESULT 0.77 mg/dL (0.52-1.25); Direct HDL 58 mg/dL (>40); GLUCOSE 154 mg/dL (75-110); MAGNESIUM 1.4 mg/dL (1.6-2.3); POTASSIUM 4.3 mmol/L (3.6-5.0); SODIUM 144.5 mmol/L (137-145); TRIGLYCERIDES 115 mg/dL (<150)
[2017-01-07 06:22] LABS: DIRECT LDL 88 mg/dL (<100)
[2017-01-07] MEDS ORDERED: MAGNESIUM OXIDE 400 MG TABLET PO SCH (08:00)
[2017-01-07] MEDS: FERROUS SULFATE 325 MG TABLET PO SCH ×2 (09:24→17:48)
[2017-01-07] MEDS: METFORMIN HCL 500 MG TABLET PO SCH ×2 (09:25→17:48)
[2017-01-07] MEDS: POTASSIUM CHLORIDE 10 MEQ TABLET.SA PO SCH (09:25)
[2017-01-07] MEDS: LISINOPRIL 10 MG TABLET PO SCH (09:25)
[2017-01-07] MEDS: DOCUSATE SODIUM 100 MG CAPSULE PO SCH (09:25)
[2017-01-07] MEDS: ISOSORBIDE MONONITRATE 30 MG TAB.ER.24H PO SCH (09:25)
[2017-01-07] MEDS: METOPROLOL TARTRATE 25 MG TABLET PO SCH ×2 (09:26→21:34)
[2017-01-07] MEDS: ALLOPURINOL 300 MG TABLET PO SCH (09:26)
[2017-01-07] MEDS: ASPIRIN 325 MG TABLET, ENT COATED PO SCH (09:26)
[2017-01-07] MEDS: CEFTRIAXONE 1 GM/D5W RTU 1 GM/50 ML RTUPB IV SCH (09:27)
[2017-01-07] MEDS: TIOTROPIUM BROMIDE DPI 5 CAP/KIT (18 MCG/CAP) IH SCH (09:29)
[2017-01-07] MEDS: ENOXAPARIN SODIUM INJ 40 MG/0.4 ML DISP.SYRIN SUBCUT SCH (09:30)
[2017-01-07] MEDS ORDERED: (PENDING PHARMACY ID) (Ubidecarenone/Vit E Acet [Co Q-10 100 Mg Softgel] 1 CAP) PO SCH (10:00)
[2017-01-07] MEDS ORDERED: ATORVASTATIN CALCIUM 40 MG TABLET PO SCH (10:00)
[2017-01-07] MEDS: MAGNESIUM OXIDE 400 MG TABLET PO SCH ×2 (12:21→17:48)
[2017-01-07] MEDS: INSULIN LISPRO 100 UNIT/ML 3 ML VIAL SUBCUT PRN (12:22)
--- NOTE | 2017-01-07 15:15 | PDOC PROGRESS REPORT ---
Subjective Progress Note for:: 01/07/17 Subjective:: Patient is eating breakfast when I see her. She reports she is feeling great. She reports the food is good breathing is better. She does note that she is not quite to her baseline yet. Patient denies chest pain, abdominal pain, nausea, vomiting, fevers, chills, diarrhea, constipation, headache, new onset weakness. Physical Exam Vital Signs: Temp Pulse Resp BP Pulse Ox 98.3 F 68 20 125/60 99 01/07/17 03:42 01/07/17 03:42 01/07/17 03:42 01/07/17 03:42 01/07/17 03:42 Intake & Output 01/06/17 01/07/17 01/08/17 06:59 06:59 06:59 Intake Total 1073 Output Total 2200 Balance -1127 Weight 99.8 kg Exam: General: Awake alert and oriented x3, no acute respiratory distress HEENT: AT/NC, PERRL, EOMI, oropharynx is moist, pink, no scleral icterus, no conjunctival injection Neck: No JVD, trachea midline Chest: Bilateral rales CV: Regular rate and rhythm, normal S1 and S2, no rub, or gallop; + 3/6 systolic murmur RUSB Abdomen: Soft, nontender to palpation, nondistended, active bowel sounds; no rebound, rigidity, or guarding Extremities: No cyanosis, clubbing; 1+ edema Neuro: Cranial nerves II through XII are grossly intact without focal deficits; awake alert and oriented x3 Psych: Normal mood and affect Results Laboratory Results: 01/07/17 05:18 01/07/17 05:18 01/07/17 01/07/17 05:18 05:18 WBC 9.3 RBC 3.01 L Hgb 8.8 L Hct 26.2 L MCV 87 MCH 29.4 MCHC 33.8 RDW 17.3 H Plt Count 171 Seg Neutrophils % 68.7 Lymphocytes % 22.3 Monocytes % 7.8 Eosinophils % 1.0 Basophils % 0.2 Absolute Neutrophils 6.4 Absolute Lymphocytes 2.1 Absolute Monocytes 0.7 Absolute Eosinophils 0.1 Absolute Basophils 0.0 Sodium 144.5 Potassium 4.3 Chloride 102 Carbon Dioxide 30 Anion Gap 13 BUN 46 H Creatinine 0.77 Est GFR ( Amer) > 60 Est GFR (Non-Af Amer) > 60 Glucose 154 H Calcium 9.6 Magnesium 1.4 L Triglycerides 115 Cholesterol 171.73 LDL Cholesterol Direct 88 VLDL Cholesterol 23.0 HDL Cholesterol 58 01/06/17 01/06/17 01/06/17 10:47 10:47 15:30 Creatine Kinase 25 L 28 L CK-MB (CK-2) 0.91 Troponin I 0.029 NT-Pro-B Natriuret Pep 01/06/17 01/06/17 01/06/17 15:30 22:15 22:15 Creatine Kinase 34 CK-MB (CK-2) 1.18 1.51 Troponin I 0.030 0.033 NT-Pro-B Natriuret Pep 01/07/17 05:19 Creatine Kinase CK-MB (CK-2) Troponin I NT-Pro-B Natriuret Pep 1420 H Impressions: Chest X-Ray 01/06/17 03:25 IMPRESSION: Stable chronic interstitial lung markings which may indicate chronic interstitial lung disease and/or recurrent pulmonary edema. Chest/Abdomen CTA 01/06/17 05:14 IMPRESSION: 1. Moderate pulmonary edema pattern. Differential diagnosis includes CHF, multifocal pneumonia, lymphangitic spread of tumor, and/or chronic interstitial lung disease. 2. Pulmonary arterial hypertension. No evidence of pulmonary embolus. 3. Indeterminate thyroid lesions ; thyroid sonogram recommended. Assessment & Plan - Diagnosis (1) Acute diastolic (congestive) heart failure Is this a current diagnosis for this admission?: Yes Plan: Pending echo. Concern for systolic heart failure in the presence of valvular heart disease. Patient however has a history of coronary artery disease and suspect patient has underlying diastolic heart failure. In discussing with patient, she was placed on Lasix as an outpatient and has failed this modality of treatment. Requires ongoing inpatient admission for diuresis and echocardiogram. Generic Name Dose Route Start Last Admin Trade Name Freq PRN Reason Stop Dose Admin Metoprolol Tartrate 25 mg 01/06/17 22:00 01/07/17 09:26 Lopressor 25 Mg Tablet PO 02/05/17 21:59 25 mg Q12 RADHA Atorvastatin Calcium 40 mg 01/07/17 10:00 01/07/17 09:26 Lipitor 40 Mg Tablet PO 02/06/17 09:59 40 mg DAILY RADHA Furosemide 20 mg 01/06/17 18:00 01/07/17 09:26 Lasix Inj/Pf 20 Mg/2 Ml Sdv IV 02/05/17 13:59 20 mg Q8A RADHA Hydralazine HCl 10 mg 01/06/17 17:53 01/06/17 19:47 Apresoline Inj/Pf 20 Mg/1 Ml Sdv IV 02/05/17 17:52 10 mg Q6HP PRN sbp>165 Isosorbide Mononitrate 30 mg 01/07/17 08:00 01/07/17 09:25 Imdur 30 Mg Tablet.Er PO 02/06/17 07:59 30 mg QAM RADHA Lisinopril 10 mg 01/07/17 10:00 01/07/17 09:25 Prinivil 10 Mg Tablet PO 02/06/17 09:59 10 mg DAILY RADHA (2) Acute hypoxemic respiratory failure Is this a current diagnosis for this admission?: Yes Plan: BiPAP as needed and use oxygen to maintain saturation greater than 93 (3) UTI (urinary tract infection) Qualifiers: Urinary tract infection type: acute cystitis Hematuria presence: with hematuria Qualified Code(s): N30.01 - Acute cystitis with hematuria Is this a current diagnosis for this admission?: Yes Plan: Rocephin day #2 pending culture (4) Pulmonary artery hypertension Is this a current diagnosis for this admission?: Yes (5) Hypertensive emergency Is this a current diagnosis for this admission?: Yes Plan: Improved Generic Name Dose Route Start Last Admin Trade Name Freq PRN Reason Stop Dose Admin Lisinopril 10 mg 01/07/17 10:00 01/07/17 09:25 Prinivil 10 Mg Tablet PO 02/06/17 09:59 10 mg DAILY RADHA Metoprolol Tartrate 25 mg 01/06/17 22:00 01/07/17 09:26 Lopressor 25 Mg Tablet PO 02/05/17 21:59 25 mg Q12 RADHA Isosorbide Mononitrate 30 mg 01/07/17 08:00 01/07/17 09:25 Imdur 30 Mg Tablet.Er PO 02/06/17 07:59 30 mg QAM RADHA Hydralazine HCl 10 mg 01/06/17 17:53 01/06/17 19:47 Apresoline Inj/Pf 20 Mg/1 Ml Sdv IV 02/05/17 17:52 10 mg Q6HP PRN sbp>165 Furosemide 20 mg 01/06/17 18:00 01/07/17 09:26 Lasix Inj/Pf 20 Mg/2 Ml Sdv IV 02/05/17 13:59 20 mg Q8A RADHA (6) Anemia Qualifiers: Anemia type: unspecified type Qualified Code(s): D64.9 - Anemia, unspecified Is this a current diagnosis for this admission?: Yes (7) Diabetes mellitus Qualifiers: Diabetes mellitus type: type 2 Diabetes mellitus complication status: with unspecified complications Diabetes mellitus long chain beamer insulin use: without mcc use Qualified Code(s): E11.8 - Type 2 diabetes mellitus with unspecified complications Is this a current diagnosis for this admission?: Yes Plan: Well controlled. Patient on sliding scale insulin and continue metformin 01/06/17 03:30 Hemoglobin A1c % 6.7 H (8) Hypomagnesemia Is this a current diagnosis for this admission?: Yes Plan: Mag ox 800mg po tid - Time Time Spent with patient: 25-34 minutes Medications reviewed and adjusted accordingly: Yes Anticipated discharge: Home with Homehealth Within: within 48 hours, within 72 hours
[2017-01-07 16:00] LABS: ABSOLUTE EOSINOPHILS # (AUTO) 0.4 10^3/uL (0.0-0.6); ABSOLUTE LYMPHOCYTES (AUTO) 2.7 10^3/uL (0.5-4.7); ABSOLUTE MONOCYTES (AUTO) 0.8 10^3/uL (0.1-1.4); ABSOLUTE NEUT (AUTO) 7.1 10^3/uL (1.7-8.2); BASOPHILS % (AUTO) 0.3 % (0-2); EOSINOPHILS % (AUTO) 3.7 % (0-6); HEMATOCRIT 26.8 % (36.0-47.0); HEMOGLOBIN 8.8 g/dL (12.0-15.5); HGB HCT DIFFERENCE -0.4; LYMPHOCYTES % (AUTO) 24.4 % (13-45); MEAN CORPUSCULAR HEMOGLOBIN 29.1 pg (27.0-33.4); MEAN CORPUSCULAR VOLUME 88 fl (80-97); MONOCYTES % (AUTO) 7.2 % (3-13); RED BLOOD COUNT 3.04 10^6/uL (3.72-5.28); RED CELL DISTRIBUTION WIDTH 17.4 % (11.5-14.0); SEGMENTED NEUTROPHILS % (AUTO) 64.4 % (42-78)
[2017-01-07] MEDS: AZITHROMYCIN 250 MG TABLET PO SCH (17:48)
[2017-01-07] MEDS: QUETIAPINE FUMARATE 25 MG TABLET PO SCH (21:34)
[2017-01-08] MEDS: FUROSEMIDE INJ/PF 20 MG/2 ML SDV IV SCH ×3 (02:04→17:10)
[2017-01-08 04:45] LABS: ABSOLUTE EOSINOPHILS # (AUTO) 0.5 10^3/uL (0.0-0.6); ABSOLUTE MONOCYTES (AUTO) 0.6 10^3/uL (0.1-1.4); ABSOLUTE NEUT (AUTO) 4.9 10^3/uL (1.7-8.2); BASOPHILS % (AUTO) 0.4 % (0-2); EOSINOPHILS % (AUTO) 5.8 % (0-6); HEMATOCRIT 27.1 % (36.0-47.0); HEMOGLOBIN 9.2 g/dL (12.0-15.5); HGB HCT DIFFERENCE 0.5; LYMPHOCYTES % (AUTO) 33.1 % (13-45); MEAN CORPUSCULAR HEMOGLOBIN 29.9 pg (27.0-33.4); MEAN CORPUSCULAR HGB CONC 34.1 g/dL (32.0-36.0); MEAN CORPUSCULAR VOLUME 88 fl (80-97); MONOCYTES % (AUTO) 6.7 % (3-13); RED BLOOD COUNT 3.08 10^6/uL (3.72-5.28); RED CELL DISTRIBUTION WIDTH 17.2 % (11.5-14.0); WHITE BLOOD COUNT 9.2 10^3/uL (4.0-10.5)
[2017-01-08 04:58] LABS: ANION GAP 13 (5-19); BLOOD UREA NITROGEN 58 mg/dL (7-20); CALCIUM 9.8 mg/dL (8.4-10.2); CARBON DIOXIDE 29 mmol/L (22-30); CHLORIDE 102 mmol/L (98-107); CREATININE RESULT 0.83 mg/dL (0.52-1.25); GLUCOSE 125 mg/dL (75-110); MAGNESIUM 1.6 mg/dL (1.6-2.3); POTASSIUM 4.7 mmol/L (3.6-5.0); SODIUM 143.9 mmol/L (137-145)
[2017-01-08] MEDS: LANSOPRAZOLE 15 MG TAB.RAP.DR PO SCH ×2 (05:36→17:07)
[2017-01-08] MEDS ORDERED: MAGNESIUM HYDROXIDE SUSP 30 ML UDCUP PO PRN (07:30)
[2017-01-08] MEDS ORDERED: ONDANSETRON HCL INJ/PF 4 MG/2 ML SDV IV PRN (07:30)
[2017-01-08] MEDS ORDERED: MAG HYDROX/AL HYDROX/SIMETH SUSP 30 ML UDCUP PO PRN (07:30)
--- NOTE | 2017-01-08 08:00 | RADIOLOGY REPORT (SQ) ---
EXAM DESCRIPTION: CHEST PA/LAT COMPLETED DATE/TIME: 01/08/2017 7:31 am REASON FOR STUDY: chf COMPARISON: 11/26/2011. EXAM PARAMETERS: NUMBER OF VIEWS: two views TECHNIQUE: Digital Frontal and Lateral radiographic views of the chest acquired. RADIATION DOSE: NA LIMITATIONS: none FINDINGS: LUNGS AND PLEURA: Mild interstitial markings. Adequate lung volume. MEDIASTINUM AND HILAR STRUCTURES: No masses or contour abnormalities. HEART AND VASCULAR STRUCTURES: Moderate enlargement of the cardiac silhouette. BONES: No acute findings. HARDWARE: Right 6th posterolateral rib deformity. OTHER: No other significant finding. IMPRESSION: No significant interval change. TECHNICAL DOCUMENTATION: JOB ID: [id number] [employer]- All Rights Reserved
[2017-01-08] MEDS: MAGNESIUM OXIDE 400 MG TABLET PO SCH ×3 (08:43→17:08)
[2017-01-08] MEDS: ISOSORBIDE MONONITRATE 30 MG TAB.ER.24H PO SCH (08:44)
[2017-01-08] MEDS: POTASSIUM CHLORIDE 10 MEQ TABLET.SA PO SCH (10:24)
[2017-01-08] MEDS: FERROUS SULFATE 325 MG TABLET PO SCH ×2 (10:24→17:10)
[2017-01-08] MEDS: ASPIRIN 325 MG TABLET, ENT COATED PO SCH (10:25)
[2017-01-08] MEDS: METOPROLOL TARTRATE 25 MG TABLET PO SCH ×2 (10:25→21:07)
[2017-01-08] MEDS: DOCUSATE SODIUM 100 MG CAPSULE PO SCH (10:25)
[2017-01-08] MEDS: CEFTRIAXONE 1 GM/D5W RTU 1 GM/50 ML RTUPB IV SCH (10:26)
[2017-01-08] MEDS: ALLOPURINOL 300 MG TABLET PO SCH (10:26)
[2017-01-08] MEDS: METFORMIN HCL 500 MG TABLET PO SCH ×2 (10:26→17:09)
[2017-01-08] MEDS: LISINOPRIL 10 MG TABLET PO SCH (10:26)
[2017-01-08] MEDS: ENOXAPARIN SODIUM INJ 40 MG/0.4 ML DISP.SYRIN SUBCUT SCH (10:40)
[2017-01-08] MEDS: TIOTROPIUM BROMIDE DPI 5 CAP/KIT (18 MCG/CAP) IH SCH (10:45)
--- NOTE | 2017-01-08 14:08 | RADIOLOGY REPORT (SQ) ---
EXAM DESCRIPTION: CT ABD/PELVIS ORAL ONLY COMPLETED DATE/TIME: 01/08/2017 1:29 pm REASON FOR STUDY: abdominal pain, diarrhea, +blood cx COMPARISON: 10/06/2016 and 07/18/2014. TECHNIQUE: CT scan of the abdomen and pelvis performed with oral contrast and no intravenous contras t. Images reviewed with lung, soft tissue, and bone windows. Reconstructed coronal and sagittal MPR i mages reviewed. All images stored on PACS. All CT scanners at this facility use dose modulation, iterative reconstruction, and/or weight based d osing when appropriate to reduce radiation dose to as low as reasonably achievable (ALARA). [facility]: Dose Right [facility]: CareDose [facility]: Dose Right [facility]: Teradose 4D [facility]: [employer] RADIATION DOSE: Up-to-date CT equipment and radiation dose reduction techniques were employed. CTDIv ol: 21.0 mGy. DLP: 1131 mGy-cm.mGy. LIMITATIONS: None. FINDINGS: LOWER CHEST: No significant findings. No nodules or infiltrates. NON-CONTRASTED LIVER, SPLEEN, ADRENALS: Evaluation limited by lack of IV contrast. Small nodule in t he left adrenal gland, unchanged since 2014. No other identified significant masses. PANCREAS: No masses. No peripancreatic inflammatory changes. GALLBLADDER: Surgically absent. RIGHT KIDNEY AND URETER: No solid masses. No significant calcification. No hydronephrosis or hydroure ter. LEFT KIDNEY AND URETER: No solid masses. No significant calcification. No hydronephrosis or hydrouret er. AORTA AND RETROPERITONEUM: No aneurysm. No retroperitoneal masses or adenopathy. BOWEL AND PERITONEAL CAVITY: No obvious masses or inflammatory changes. No free fluid. APPENDIX: Normal. PELVIS, BLADDER, AND ABDOMINAL WALL: No abnormal pelvic masses. No abdominal wall hernias. Bladder un remarkable. BONES: No significant findings. Degenerative changes in the spine. OTHER: No other significant finding. IMPRESSION: NO SIGNIFICANT OR ACUTE ABDOMINAL PROCESS. 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 TECHNICAL DOCUMENTATION: JOB ID: [id number] Quality ID # [id number]: Final reports with documentation of one or more dose reduction techniques (e.g., Au tomated exposure control, adjustment of the mA and/or kV according to patient size, use of iterative reconstruction technique) 2010 [employer]- All Rights Reserved
[2017-01-08] MEDS: AZITHROMYCIN 250 MG TABLET PO SCH (17:06)
[2017-01-08] MEDS: LACTOBACILLUS ACIDOPHILUS 250 MG TAB PO SCH (17:38)
--- NOTE | 2017-01-08 17:42 | PDOC PROGRESS REPORT ---
Subjective Progress Note for:: 01/08/17 Subjective:: Patient appears to have some type of cognitive dysfunction making entire review of systems difficult. When I asked patient if she had abdominal pain she said "sometimes". Upon examination, patient was asked where her abdominal pain was. Patient reports that it was "some" of the places that I pushed. Patient reports she is breathing much better today. Patient continues to require oxygen and is still significantly far from baseline. Patient admits to several episodes of diarrhea without hematochezia or melena. Patient denies chest pain, nausea, vomiting, fevers, chills,constipation, headache, new onset weakness. Physical Exam Vital Signs: Temp Pulse Resp BP Pulse Ox 97.6 F 65 20 144/58 H 96 01/08/17 07:13 01/08/17 07:13 01/08/17 07:13 01/08/17 07:13 01/08/17 07:13 Intake & Output 01/07/17 01/08/17 01/09/17 06:59 06:59 06:59 Intake Total 1073 1350 Output Total 2200 2700 Balance -1127 -1350 Weight 99.8 kg 97.1 kg 97.1 kg Exam: General: Awake alert and oriented x3, no acute respiratory distress HEENT: AT/NC, PERRL, EOMI, oropharynx is moist, pink, no scleral icterus, no conjunctival injection Neck: No JVD, trachea midline Chest: Occasional crackles CV: Regular rate and rhythm, normal S1 and S2, no rub, or gallop; + 3/6 systolic murmur RUSB Abdomen: Soft, nontender to palpation, nondistended, active bowel sounds; no rebound, rigidity, or guarding Extremities: No cyanosis, clubbing; 1+ edema Neuro: Cranial nerves II through XII are grossly intact without focal deficits; awake alert and oriented x3 Psych: Normal mood and affect Results Laboratory Results: 01/08/17 03:50 01/08/17 03:50 01/07/17 01/08/17 01/08/17 15:50 03:50 03:50 WBC 11.0 H 9.2 RBC 3.04 L 3.08 L Hgb 8.8 L 9.2 L Hct 26.8 L 27.1 L MCV 88 88 MCH 29.1 29.9 MCHC 33.0 34.1 RDW 17.4 H 17.2 H Plt Count 200 181 Seg Neutrophils % 64.4 54.0 Lymphocytes % 24.4 33.1 Monocytes % 7.2 6.7 Eosinophils % 3.7 5.8 Basophils % 0.3 0.4 Absolute Neutrophils 7.1 4.9 Absolute Lymphocytes 2.7 3.0 Absolute Monocytes 0.8 0.6 Absolute Eosinophils 0.4 0.5 Absolute Basophils 0.0 0.0 Sodium 143.9 Potassium 4.7 Chloride 102 Carbon Dioxide 29 Anion Gap 13 BUN 58 H Creatinine 0.83 Est GFR ( Amer) > 60 Est GFR (Non-Af Amer) > 60 Glucose 125 H Calcium 9.8 Magnesium 1.6 01/06/17 01/06/17 01/06/17 10:47 10:47 15:30 Creatine Kinase 25 L 28 L CK-MB (CK-2) 0.91 Troponin I 0.029 NT-Pro-B Natriuret Pep 01/06/17 01/06/17 01/06/17 15:30 22:15 22:15 Creatine Kinase 34 CK-MB (CK-2) 1.18 1.51 Troponin I 0.030 0.033 NT-Pro-B Natriuret Pep 01/07/17 05:19 Creatine Kinase CK-MB (CK-2) Troponin I NT-Pro-B Natriuret Pep 1420 H Impressions: Chest/Abdomen CTA 01/06/17 05:14 IMPRESSION: 1. Moderate pulmonary edema pattern. Differential diagnosis includes CHF, multifocal pneumonia, lymphangitic spread of tumor, and/or chronic interstitial lung disease. 2. Pulmonary arterial hypertension. No evidence of pulmonary embolus. 3. Indeterminate thyroid lesions ; thyroid sonogram recommended. Chest X-Ray 01/08/17 06:00 IMPRESSION: No significant interval change. Assessment & Plan - Diagnosis (1) Acute diastolic (congestive) heart failure Is this a current diagnosis for this admission?: Yes Plan: Pending echo read. Concern for systolic heart failure in the presence of valvular heart disease. Patient however has a history of coronary artery disease and suspect patient has underlying diastolic heart failure at the bare minimum. In discussing with patient, she was placed on Lasix as an outpatient and has failed this modality of treatment. Requires ongoing inpatient admission for diuresis and echocardiogram. Generic Name Dose Route Start Last Admin Trade Name Freq PRN Reason Stop Dose Admin Aspirin 325 mg 01/07/17 10:00 01/08/17 10:25 Ecotrin 325 Mg Ec Tablet PO 02/06/17 09:59 325 mg DAILY RADHA Furosemide 20 mg 01/06/17 18:00 01/08/17 17:10 Lasix Inj/Pf 20 Mg/2 Ml Sdv IV 02/05/17 13:59 20 mg Q8A RADHA Hydralazine HCl 10 mg 01/06/17 17:53 01/06/17 19:47 Apresoline Inj/Pf 20 Mg/1 Ml Sdv IV 02/05/17 17:52 10 mg Q6HP PRN sbp>165 Isosorbide Mononitrate 30 mg 01/07/17 08:00 01/08/17 08:44 Imdur 30 Mg Tablet.Er PO 02/06/17 07:59 30 mg QAM RADHA Lisinopril 10 mg 01/07/17 10:00 01/08/17 10:26 Prinivil 10 Mg Tablet PO 02/06/17 09:59 10 mg DAILY [facility] Metoprolol Tartrate 25 mg 01/06/17 22:00 01/08/17 10:25 Lopressor 25 Mg Tablet PO 02/05/17 21:59 25 mg Q12 [facility] (2) Acute hypoxemic respiratory failure Is this a current diagnosis for this admission?: Yes Plan: BiPAP as needed and use oxygen to maintain saturation greater than 93 Patient is currently requiring 4 L of oxygen (3) UTI (urinary tract infection) Qualifiers: Urinary tract infection type: acute cystitis Hematuria presence: with hematuria Qualified Code(s): N30.01 - Acute cystitis with hematuria Is this a current diagnosis for this admission?: Yes Plan: Patient's bacteremia is likely secondary to her UTI. Patient grew out Clostridium not perfringens and gram-positive cocci. Continue patient on Rocephin (4) Pulmonary artery hypertension Is this a current diagnosis for this admission?: Yes (5) Hypertensive emergency Is this a current diagnosis for this admission?: Yes Plan: Improved Generic Name Dose Route Start Last Admin Trade Name Freq PRN Reason Stop Dose Admin Hydralazine HCl 10 mg 01/06/17 17:53 01/06/17 19:47 Apresoline Inj/Pf 20 Mg/1 Ml Sdv IV 02/05/17 17:52 10 mg Q6HP PRN sbp>165 Lisinopril 10 mg 01/07/17 10:00 01/08/17 10:26 Prinivil 10 Mg Tablet PO 02/06/17 09:59 10 mg DAILY RADHA Isosorbide Mononitrate 30 mg 01/07/17 08:00 01/08/17 08:44 Imdur 30 Mg Tablet.Er PO 02/06/17 07:59 30 mg QAM RADHA Furosemide 20 mg 01/06/17 18:00 01/08/17 17:10 Lasix Inj/Pf 20 Mg/2 Ml Sdv IV 02/05/17 13:59 20 mg Q8A RADHA (6) Anemia Qualifiers: Anemia type: unspecified type Qualified Code(s): D64.9 - Anemia, unspecified Is this a current diagnosis for this admission?: Yes (7) Diabetes mellitus Qualifiers: Diabetes mellitus type: type 2 Diabetes mellitus complication status: with unspecified complications Diabetes mellitus fdc insulin use: without fdc use Qualified Code(s): E11.8 - Type 2 diabetes mellitus with unspecified complications Is this a current diagnosis for this admission?: Yes Plan: Well controlled. Patient on sliding scale insulin and continue metformin 01/06/17 03:30 Hemoglobin A1c % 6.7 H (8) Hypomagnesemia Is this a current diagnosis for this admission?: Yes Plan: Mag ox 800mg po tid Repeat mag in a.m. 01/08/17 03:50 Magnesium 1.6 (9) Bacteremia Is this a current diagnosis for this admission?: Yes Plan: 01/06/17 03:30 Blood Culture - Preliminary Blood Clostridium Sp.not Perfringens Gram Positive Cocci - Time Time Spent with patient: 25-34 minutes Medications reviewed and adjusted accordingly: Yes
--- NOTE | 2017-01-08 18:33 | XCELERA REPORT ---
[address] [address] Transthoracic Echocardiogram Report Name: TRISTEN SOW Age: 81 yrs Gender: Female : 1935 Patient Status: Inpatient Patient Location: [address] [place] [address] Study Date: 01/06/2017 03:03 PM Height: 62 in Weight: 222 lb BSA: 2.0 m2 Procedure: A complete two-dimensional transthoracic echocardiogram was performed (2D, M-mode, spectral and color flow Doppler). The study was technically difficult with many images being suboptimal in quality. Reason For Study: murmur Ordering Physician: MILY BRADY Performed By: Kaity Petit Interpretation Summary The study was technically difficult with many images being suboptimal in quality. The left ventricular ejection fraction is normal. There is mild concentric left ventricular hypertrophy. Doppler measurements suggest pseudonormalized left ventricular relaxation, which is associated with grade II/IV or mild to moderate diastolic dysfunction There is moderate aortic stenosis There is a peak gradient of 50-55, mean 30 mm of Hg. There is a mild amount of aortic regurgitation There is a mild amount of mitral regurgitation There is no mitral valve stenosis. There is a trace to mild amount of tricuspid regurgitation There is mild pulmonary hypertension by echo Right ventricular systolic pressure is estimated to be elevated at 30- 40mmHg. The right ventricular systolic function is normal. The left atrium is moderately dilated. The right atrium is normal in size There is no pericardial effusion. MMode/2D Measurements & Calculations RVDd: 3.1 cm LVIDd: 5.0 cmFS: 40.5 % Ao root diam: 2.5 cm IVSd: 1.2 cm LVIDs: 3.0 cmEDV(Teich): 119.9 ml LVPWd: 1.2 cmESV(Teich): 34.8 ml Ao root area: 5.0 cm2 EF(Teich): 71.0 % LA dimension: 4.5 cm LVOT diam: 2.2 cm LVOT area: 3.7 cm2 Doppler Measurements & Calculations MV E max shai: MV P1/2t max shai: Ao V2 max: LV V1 max P.5 cm/sec 109.3 cm/sec 364.8 cm/sec 11.7 mmHg MV A max shai: MV P1/2t: 53.5 msec Ao max PG: LV V1 mean P.0 cm/sec MVA(P1/2t): 4.1 cm2 53.3 mmHg 6.2 mmHg MV E/A: 0.63 MV dec slope: Ao V2 mean: LV V1 max: 598.8 cm/sec2 247.2 cm/sec 171.2 cm/sec MV dec time: 0.18 secAo mean PG: LV V1 mean: 29.4 mmHg 113.1 cm/sec Ao V2 VTI: LV V1 VTI: 70.8 cm 34.2 cm JOSÉ MIGUEL(I,D): 1.8 cm2 JOSÉ MIGUEL(V,D): 1.8 cm2 SV(LVOT): 127.7 ml PA V2 max: TR max shai: 152.5 cm/sec 268.8 cm/sec PA max P.3 mmHg TR max P.9 mmHg Left Ventricle The left ventricle is grossly normal size. There is mild concentric left ventricular hypertrophy. The left ventricular ejection fraction is normal. Doppler measurements suggest pseudonormalized left ventricular relaxation, which is associated with grade II/IV or mild to moderate diastolic dysfunction. Wall motion cannot be accurately commented on, but no definite regional wall motion abnormalities noted. Right Ventricle The right ventricle is grossly normal size. There is normal right ventricular wall thickness. The right ventricular systolic function is normal. Atria The right atrium is normal in size. The left atrium is moderately dilated. Interarterial septum not well visualized and not well dopplered. Cannot comment on ASD/PFO presence. Mitral Valve There is mild to moderate mitral annular calcification. There is no mitral valve stenosis. There is a mild amount of mitral regurgitation. Aortic Valve The aortic valve is moderately calcified. There is moderate aortic stenosis. There is a peak gradient of 50-55, mean 30 mm of Hg. There is a mild amount of aortic regurgitation. Tricuspid Valve The tricuspid valve is not well visualized, but is grossly normal. There is no tricuspid stenosis. There is a trace to mild amount of tricuspid regurgitation. There is mild pulmonary hypertension by echo. Right ventricular systolic pressure is estimated to be elevated at 30-40mmHg. Pulmonic Valve The pulmonic valve is not well visualized. Great Vessels The aortic root is not well visualized but is probably normal size. The inferior vena cava appeared normal and decreased > 50% with respiration (RAP 5-10 mmHg). Effusions There is no pericardial effusion. : MILY BRADY > Ortiz Brower
[2017-01-08] MEDS: ATORVASTATIN CALCIUM 40 MG TABLET PO SCH (21:07)
[2017-01-08] MEDS: QUETIAPINE FUMARATE 25 MG TABLET PO SCH (21:07)
[2017-01-09] MEDS: FUROSEMIDE INJ/PF 20 MG/2 ML SDV IV SCH ×3 (01:39→17:47)
[2017-01-09] MEDS: LANSOPRAZOLE 15 MG TAB.RAP.DR PO SCH ×2 (05:05→16:13)
[2017-01-09] MEDS: MAGNESIUM OXIDE 400 MG TABLET PO SCH ×3 (08:54→16:13)
[2017-01-09] MEDS: ISOSORBIDE MONONITRATE 30 MG TAB.ER.24H PO SCH (08:54)
[2017-01-09] MEDS: LACTOBACILLUS ACIDOPHILUS 250 MG TAB PO SCH ×2 (09:39→17:47)
[2017-01-09] MEDS: METOPROLOL TARTRATE 25 MG TABLET PO SCH ×2 (09:39→21:23)
[2017-01-09] MEDS: DOCUSATE SODIUM 100 MG CAPSULE PO SCH (09:41)
[2017-01-09] MEDS: POTASSIUM CHLORIDE 10 MEQ TABLET.SA PO SCH (09:41)
[2017-01-09] MEDS: FERROUS SULFATE 325 MG TABLET PO SCH ×2 (09:42→17:47)
[2017-01-09] MEDS: LISINOPRIL 10 MG TABLET PO SCH (09:42)
[2017-01-09] MEDS: ALLOPURINOL 300 MG TABLET PO SCH (09:42)
[2017-01-09] MEDS: ASPIRIN 325 MG TABLET, ENT COATED PO SCH (09:42)
[2017-01-09] MEDS: CEFTRIAXONE 1 GM/D5W RTU 1 GM/50 ML RTUPB IV SCH (09:43)
[2017-01-09] MEDS: ENOXAPARIN SODIUM INJ 40 MG/0.4 ML DISP.SYRIN SUBCUT SCH (10:06)
[2017-01-09] MEDS: TIOTROPIUM BROMIDE DPI 5 CAP/KIT (18 MCG/CAP) IH SCH (10:29)
[2017-01-09] MEDS: AZITHROMYCIN 250 MG TABLET PO SCH (17:47)
--- NOTE | 2017-01-09 17:52 | PDOC PROGRESS REPORT ---
Subjective Progress Note for:: 01/09/17 Subjective:: This follow-up visit for acute hypoxemic respiratory failure. The patient was seen and currently states that she feels much better. She states that she will be ready to go home by Sunday according to Dr. Spears. No acute events overnight. Physical Exam Vital Signs: Temp Pulse Resp BP Pulse Ox 97.8 F 64 22 H 133/81 H 94 01/09/17 16:35 01/09/17 16:35 01/09/17 16:35 01/09/17 16:35 01/09/17 16:35 Intake & Output 01/08/17 01/09/17 01/10/17 06:59 06:59 06:59 Intake Total 1350 2139 237 Output Total 2700 900 Balance -1350 1239 237 Weight 97.1 kg 98.3 kg GENERAL: This is a well-developed, well-nourished, obese white female resting on the edge of her bed getting cleaned up in no acute distress. HEART: Regular rate and rhythm. 1 out of 6 systolic murmurs. no rubs or gallops. LUNGS: Diminished at the bases bilaterally. Otherwise, clear to auscultation bilaterally with equal rise and fall of the chest. ABDOMEN: Soft, nontender, nondistended with normoactive bowel sounds EXTREMETIES: No clubbing, cyanosis or edema. 2+ peripheral pulses bilaterally. NEURO: Awake, alert and oriented 3. Cranial nerves II through XII are grossly intact. Results Laboratory Results: 01/08/17 03:50 01/08/17 03:50 01/06/17 01/06/17 01/06/17 10:47 10:47 15:30 Creatine Kinase 25 L 28 L CK-MB (CK-2) 0.91 Troponin I 0.029 NT-Pro-B Natriuret Pep 01/06/17 01/06/17 01/06/17 15:30 22:15 22:15 Creatine Kinase 34 CK-MB (CK-2) 1.18 1.51 Troponin I 0.030 0.033 NT-Pro-B Natriuret Pep 01/07/17 05:19 Creatine Kinase CK-MB (CK-2) Troponin I NT-Pro-B Natriuret Pep 1420 H Impressions: Chest/Abdomen CTA 01/06/17 05:14 IMPRESSION: 1. Moderate pulmonary edema pattern. Differential diagnosis includes CHF, multifocal pneumonia, lymphangitic spread of tumor, and/or chronic interstitial lung disease. 2. Pulmonary arterial hypertension. No evidence of pulmonary embolus. 3. Indeterminate thyroid lesions ; thyroid sonogram recommended. Abdomen/Pelvis CT 01/08/17 00:00 IMPRESSION: NO SIGNIFICANT OR ACUTE ABDOMINAL PROCESS. 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 Chest X-Ray 01/08/17 06:00 IMPRESSION: No significant interval change. Assessment & Plan - Diagnosis (1) Acute hypoxemic respiratory failure Is this a current diagnosis for this admission?: Yes Plan: Patient is much improved. She is currently on oxygen. She has no complaints at this time. (2) Hypertensive emergency Is this a current diagnosis for this admission?: Yes Plan: Blood pressures have been as high as 179/138. She did have 1 systolic blood pressure of 206. Most recently her blood pressures have been in the 150s. Continue blood pressure control with hydralazine as needed. Also continue isosorbide mononitrate, lisinopril, metoprolol. Adjust medications as necessary. (3) Acute diastolic (congestive) heart failure Is this a current diagnosis for this admission?: Yes Plan: I suspect that her heart failure is likely secondary to her hypertensive emergency. Echocardiogram was done on which showed grade 2 out of 6 diastolic dysfunction mild aortic and mitral regurgitation and mild pulmonary hypertension. The left atrium was moderately dilated. Continue diuresis. (4) Diabetes mellitus Qualifiers: Diabetes mellitus type: type 2 Diabetes mellitus complication status: with unspecified complications Diabetes mellitus fci insulin use: without fci use Qualified Code(s): E11.8 - Type 2 diabetes mellitus with unspecified complications Is this a current diagnosis for this admission?: Yes Plan: Continue sliding scale insulin. (5) Pulmonary artery hypertension Is this a current diagnosis for this admission?: Yes (6) UTI (urinary tract infection) Qualifiers: Urinary tract infection type: acute cystitis Hematuria presence: with hematuria Qualified Code(s): N30.01 - Acute cystitis with hematuria Is this a current diagnosis for this admission?: Yes Plan: The patient had skin pathogens growing in her urine. I believe urinary tract infection has been ruled out. This is likely contaminant. She is currently on Rocephin and Zithromax. We will leave these on from a COPD perspective. (7) Bacteremia Is this a current diagnosis for this admission?: Yes Plan: Patient's blood cultures are growing out 2 different organisms one is Staphylococcus epidermidis and the other one is Clostridium perfringens. These are growing in 2 separate bottles. Repeat blood cultures have been ordered. I suspect that this is a contaminant. The other set of blood cultures drawn on that same day have remained negative after 72 hours. No further intervention at this time - Time Time Spent with patient: 15-24 minutes Within: within 48 hours - Inpatient Certification Medical Necessity: Need Close Monitoring Due to Risk of Patient Decompensation
[2017-01-09] MEDS: INSULIN LISPRO 100 UNIT/ML 3 ML VIAL SUBCUT PRN ×2 (18:18→21:48)
[2017-01-09] MEDS: ATORVASTATIN CALCIUM 40 MG TABLET PO SCH (21:23)
[2017-01-09] MEDS: QUETIAPINE FUMARATE 25 MG TABLET PO SCH (21:23)
[2017-01-10] MEDS: FUROSEMIDE INJ/PF 20 MG/2 ML SDV IV SCH ×2 (01:09→09:35)
[2017-01-10] MEDS: LANSOPRAZOLE 15 MG TAB.RAP.DR PO SCH ×2 (05:30→17:47)
[2017-01-10] MEDS: MAGNESIUM OXIDE 400 MG TABLET PO SCH ×3 (08:04→17:46)
[2017-01-10] MEDS: ISOSORBIDE MONONITRATE 30 MG TAB.ER.24H PO SCH (08:05)
[2017-01-10] MEDS: INSULIN LISPRO 100 UNIT/ML 3 ML VIAL SUBCUT PRN ×2 (08:07→12:48)
[2017-01-10] MEDS: LACTOBACILLUS ACIDOPHILUS 250 MG TAB PO SCH ×2 (09:31→17:48)
[2017-01-10] MEDS: LISINOPRIL 10 MG TABLET PO SCH (09:32)
[2017-01-10] MEDS: FERROUS SULFATE 325 MG TABLET PO SCH ×2 (09:33→17:47)
[2017-01-10] MEDS: METOPROLOL TARTRATE 25 MG TABLET PO SCH ×2 (09:34→21:19)
[2017-01-10] MEDS: ALLOPURINOL 300 MG TABLET PO SCH (09:34)
[2017-01-10] MEDS: DOCUSATE SODIUM 100 MG CAPSULE PO SCH (09:34)
[2017-01-10] MEDS: ASPIRIN 325 MG TABLET, ENT COATED PO SCH (09:34)
[2017-01-10] MEDS: POTASSIUM CHLORIDE 10 MEQ TABLET.SA PO SCH (09:34)
[2017-01-10] MEDS: CEFTRIAXONE 1 GM/D5W RTU 1 GM/50 ML RTUPB IV SCH (09:35)
[2017-01-10] MEDS: ENOXAPARIN SODIUM INJ 40 MG/0.4 ML DISP.SYRIN SUBCUT SCH (09:49)
[2017-01-10] MEDS: TIOTROPIUM BROMIDE DPI 5 CAP/KIT (18 MCG/CAP) IH SCH (09:50)
--- NOTE | 2017-01-10 14:57 | PDOC PROGRESS REPORT ---
Subjective Progress Note for:: 01/10/17 Subjective:: This follow-up visit for acute hypoxemic respiratory failure. The patient was seen and currently states that she feels much better. No acute events overnight. The patient tells me that she lives at home alone but has a environmental health technician that comes in. Her caretakers responsible for preparing meals as well as helping her get cleaned up. At baseline the patient is able to ambulate around her home with her walker. Physical Exam Vital Signs: Temp Pulse Resp BP Pulse Ox 97.8 F 67 20 143/37 H 98 01/10/17 12:22 01/10/17 14:00 01/10/17 12:22 01/10/17 12:22 01/10/17 12:22 Intake & Output 01/09/17 01/10/17 01/11/17 06:59 06:59 06:59 Intake Total 2139 1299 240 Output Total 900 200 Balance 1239 1099 240 Weight 98.3 kg 98.3 kg GENERAL: This is a well-developed, well-nourished, obese white female resting in bed getting in no acute distress. HEART: Regular rate and rhythm. 1 out of 6 systolic murmurs. no rubs or gallops. LUNGS: Diminished at the bases bilaterally. Otherwise, clear to auscultation bilaterally with equal rise and fall of the chest. ABDOMEN: Soft, nontender, nondistended with normoactive bowel sounds EXTREMETIES: No clubbing, cyanosis or edema. 2+ peripheral pulses bilaterally. NEURO: Awake, alert and oriented 3. Cranial nerves II through XII are grossly intact. Results Laboratory Results: 01/08/17 03:50 01/08/17 03:50 01/06/17 01/06/17 01/06/17 10:47 10:47 15:30 Creatine Kinase 25 L 28 L CK-MB (CK-2) 0.91 Troponin I 0.029 NT-Pro-B Natriuret Pep 01/06/17 01/06/17 01/06/17 15:30 22:15 22:15 Creatine Kinase 34 CK-MB (CK-2) 1.18 1.51 Troponin I 0.030 0.033 NT-Pro-B Natriuret Pep 01/07/17 05:19 Creatine Kinase CK-MB (CK-2) Troponin I NT-Pro-B Natriuret Pep 1420 H Impressions: Chest/Abdomen CTA 01/06/17 05:14 IMPRESSION: 1. Moderate pulmonary edema pattern. Differential diagnosis includes CHF, multifocal pneumonia, lymphangitic spread of tumor, and/or chronic interstitial lung disease. 2. Pulmonary arterial hypertension. No evidence of pulmonary embolus. 3. Indeterminate thyroid lesions ; thyroid sonogram recommended. Abdomen/Pelvis CT 01/08/17 00:00 IMPRESSION: NO SIGNIFICANT OR ACUTE ABDOMINAL PROCESS. 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 Chest X-Ray 01/08/17 06:00 IMPRESSION: No significant interval change. Assessment & Plan - Diagnosis (1) Acute hypoxemic respiratory failure Is this a current diagnosis for this admission?: Yes Plan: Patient is much improved. She is currently on oxygen. She has no complaints at this time. She tells me that she has recently refilled her oxygen tanks at home and is good to go in this area. (2) Hypertensive emergency Is this a current diagnosis for this admission?: Yes Plan: Blood pressures have been as high as 179/138. She did have 1 systolic blood pressure of 206. Most recently her blood pressures have been in the 130s-140. Continue blood pressure control with hydralazine as needed. Also continue isosorbide mononitrate, lisinopril, metoprolol. Adjust medications as necessary. (3) Acute diastolic (congestive) heart failure Is this a current diagnosis for this admission?: Yes Plan: I suspect that her heart failure is likely secondary to her hypertensive emergency. Echocardiogram was done on 01/06 which showed grade 2 out of 6 diastolic dysfunction, mild aortic and mitral regurgitation and mild pulmonary hypertension. The left atrium was moderately dilated. Continue diuresis. Overall the patient is greatly improved. I am going to change her from IV Lasix to p.o. (4) Diabetes mellitus Qualifiers: Diabetes mellitus type: type 2 Diabetes mellitus complication status: with unspecified complications Diabetes mellitus terminal gauger insulin use: without halfway use Qualified Code(s): E11.8 - Type 2 diabetes mellitus with unspecified complications Is this a current diagnosis for this admission?: Yes Plan: Continue sliding scale insulin. (5) Pulmonary artery hypertension Is this a current diagnosis for this admission?: Yes Plan: Supportive care for now. If this worsens she can certainly consider seeing specialists up at [facility] for management of pulmonary hypertension. Will defer to primary care physician. (6) UTI (urinary tract infection) Qualifiers: Urinary tract infection type: acute cystitis Hematuria presence: with hematuria Qualified Code(s): N30.01 - Acute cystitis with hematuria Is this a current diagnosis for this admission?: Yes Plan: The patient had skin pathogens growing in her urine. I believe urinary tract infection has been ruled out. This is likely contaminant. She is currently on Rocephin and Zithromax. We will leave these on from a COPD perspective. (7) Bacteremia Is this a current diagnosis for this admission?: Yes Plan: Patient's blood cultures are growing out 2 different organisms one is Staphylococcus epidermidis and the other one is Clostridium perfringens. These are growing in 2 separate bottles. Repeat blood cultures have been ordered. I suspect that this is a contaminant. The other set of blood cultures drawn on that same day have remained negative after 72 hours. No further intervention at this time - Time Time Spent with patient: 15-24 minutes - Inpatient Certification Based on my medical assessment, after consideration of the patient's comorbidities, presenting symptoms, or acuity I expect that the services needed warrant INPATIENT care.: Yes - Plan Summary Plan Summary: Await rearrangements of home health care and the patient's environmental health technician so that she has someone available when she goes home. Otherwise the patient stable for discharge.
[2017-01-10] MEDS: AZITHROMYCIN 250 MG TABLET PO SCH (17:47)
[2017-01-10] MEDS: FUROSEMIDE 20 MG TABLET PO SCH (17:47)
[2017-01-10] MEDS: ATORVASTATIN CALCIUM 40 MG TABLET PO SCH (21:19)
[2017-01-10] MEDS: QUETIAPINE FUMARATE 25 MG TABLET PO SCH (21:19)
[2017-01-11] MEDS: INSULIN LISPRO 100 UNIT/ML 3 ML VIAL SUBCUT PRN ×2 (00:12→08:09)
[2017-01-11] MEDS: LANSOPRAZOLE 15 MG TAB.RAP.DR PO SCH (06:24)
[2017-01-11] MEDS: MAGNESIUM OXIDE 400 MG TABLET PO SCH ×2 (08:09→11:27)
[2017-01-11] MEDS: ISOSORBIDE MONONITRATE 30 MG TAB.ER.24H PO SCH (08:09)
[2017-01-11] MEDS: ENOXAPARIN SODIUM INJ 40 MG/0.4 ML DISP.SYRIN SUBCUT SCH (09:17)
[2017-01-11] MEDS: TIOTROPIUM BROMIDE DPI 5 CAP/KIT (18 MCG/CAP) IH SCH (09:17)
[2017-01-11] MEDS: FERROUS SULFATE 325 MG TABLET PO SCH (09:19)
[2017-01-11] MEDS: DOCUSATE SODIUM 100 MG CAPSULE PO SCH (09:20)
[2017-01-11] MEDS: METOPROLOL TARTRATE 25 MG TABLET PO SCH (09:20)
[2017-01-11] MEDS: LISINOPRIL 10 MG TABLET PO SCH (09:20)
[2017-01-11] MEDS: ASPIRIN 325 MG TABLET, ENT COATED PO SCH (09:21)
[2017-01-11] MEDS: POTASSIUM CHLORIDE 10 MEQ TABLET.SA PO SCH (09:22)
[2017-01-11] MEDS: LACTOBACILLUS ACIDOPHILUS 250 MG TAB PO SCH (09:22)
[2017-01-11] MEDS: ALLOPURINOL 300 MG TABLET PO SCH (09:22)
[2017-01-11] MEDS: FUROSEMIDE 20 MG TABLET PO SCH (09:23)
[2017-01-11] MEDS: CEFTRIAXONE 1 GM/D5W RTU 1 GM/50 ML RTUPB IV SCH (09:24)
[2017-01-11] MEDS ORDERED: METFORMIN HCL 500 MG TABLET PO SCH (10:00)
[2017-01-11 12:38] VITALS: BP 131/59
--- NOTE | 2017-01-11 21:56 | PDOC DISCHARGE SUMMARY ---
General - Admit/Disc Date/PCP Admission Date/Primary Care Provider: 01/06/17 08:40 - Discharge Diagnosis (1) Acute on chronic respiratory failure with hypoxemia Summary: This is resolved. The patient at baseline is on 2 L by nasal cannula. She has oxygen tanks already delivered to her home. Continue various inhalers and follow-up with PCP in a week. (2) Hypertensive emergency Is this a current diagnosis for this admission?: Yes (3) Acute diastolic (congestive) heart failure Is this a current diagnosis for this admission?: Yes Summary: Resolved with diuresis. Continue maintenance Lasix at 20 mg daily. Follow-up with PCP. (4) Diabetes mellitus Is this a current diagnosis for this admission?: Yes Summary: Continue home medications. (5) Pulmonary artery hypertension Is this a current diagnosis for this admission?: Yes Summary: Follow-up with PCP. (6) UTI (urinary tract infection) Is this a current diagnosis for this admission?: Yes Summary: Status post antibiotic treatment. (7) Bacteremia Is this a current diagnosis for this admission?: Yes Summary: This is ruled out and was likely a contaminant. - Additional Information Resuscitation Status: Do Not Resuscitate Discharge Diet: Cardiac, Diabetic Discharge Activity: Activity As Tolerated, Balance Activity w/Rest, Weigh Daily Home Medications: Allopurinol [Zyloprim 300 mg Tablet] 300 mg PO DAILY 01/06/17 Atorvastatin Calcium [Lipitor 40 mg Tablet] 40 mg PO DAILY 01/06/17 Ferrous Sulfate [Feosol 325 mg Tablet] 325 mg PO BID 01/06/17 Isosorbide Mononitrate [Isosorbide Mononitrate ER] 30 mg PO QAM 01/06/17 Lisinopril [Prinivil 10 mg Tablet] 10 mg PO DAILY 01/06/17 Magnesium Oxide [Mag-Ox 400 mg Tablet] 400 mg PO QAM 01/06/17 Metformin HCl [Glucophage 500 mg Tablet] 500 mg PO BID 01/06/17 Metoprolol Tartrate [Lopressor 25 mg Tablet] 25 mg PO Q12 01/06/17 Omeprazole 20 mg PO BID 01/06/17 Potassium Chloride [Klor-Con 10 Meq Tablet.sa] 10 meq PO DAILY 01/06/17 Quetiapine Fumarate [Seroquel] 50 mg PO QHS 01/06/17 Tiotropium Valyermo [Spiriva Handihaler 5 Cap/Kit (18 Mcg/Cap)] 1 puff IH DAILY 01/06/17 Ubidecarenone/Vit E Acet [Co Q-10 100 mg Softgel] 1 cap PO DAILY 01/06/17 Furosemide [Lasix 20 mg Tablet] 20 mg PO BID #60 tablet 01/11/17 Levofloxacin [Levaquin 750 mg Tablet] 750 mg PO DAILY #5 tablet 01/11/17 History of Present Illness History of Present Illness: TRISTEN SOW is a 81 year old white female who was admitted to the service for COPD exacerbation. Please see the HPI performed by the admitting attending as below. Admission Date/PCP: 01/06/17 08:40 History of Present Illness: TRISTEN SOW is a 81 year old female with a past medical history of coronary artery disease, diabetes mellitus, bipolar disorder, gout, COPD, hyperlipidemia , hypertension, congestive heart failure, breast cancer, GERD, and gallstone pancreatitis who presents to the emergency department with complaints of shortness of breath. She reports that it was 2 AM and she was attempting to sleep but was unable to catch her breath. She reports that she uses oxygen at home. She reports increasing dyspnea on exertion, white sputum. She reports seeing her PCP as last Sunday who prescribed Lasix for her. She reports she saw oncology last week inconsistent. She is unable to tell me anything about her oncology appointment. Patient reports her last bowel movement was this morning and denies hematochezia or melena. She denies any nausea vomiting. She reports some subjective fevers but no chills and foul-smelling urine. Patient is currently on BiPAP limiting some of our discussion due to her breathlessness. Patient is referred to the hospitalist service for congestive heart failure exacerbation. Hospital Course Hospital Course: Patient was admitted to the hospital and diuresed. She was started on Rocephin as well as Lasix for diuresis. The patient did remarkably well even by the second day of admission. She was initially placed on bilevel Pap and was able to be weaned to her nasal cannula. She is usually on oxygen at home and eventually was able to get back to her baseline. She was able to move around the room without worsening shortness of breath. The patient did get an echocardiogram which showed grade 2 out of 6 diastolic dysfunction with moderate aortic stenosis. Patient also was noted to have a urinary tract infection. However, when sent for urinalysis specimen was contaminated. Blood cultures were also contaminated as well. Patient was treated with IV antibiotics for the duration of her stay. This was intended to cover for any microorganisms in the lung. She received Rocephin and Zithromax for total of 5 days. She will need follow-up with her PCP in a week. The patient is currently back to baseline is felt to be stable for discharge back home with home health. Physical Exam Vital Signs: Temp Pulse Resp BP Pulse Ox 98.4 F 63 16 137/82 H 99 01/11/17 07:32 01/11/17 07:32 01/11/17 07:17 01/11/17 07:32 01/11/17 07:32 Intake & Output 01/10/17 01/11/17 01/12/17 06:59 06:59 06:59 Intake Total 1299 655 Output Total 200 1250 Balance 1099 -595 Weight 98.3 kg 98 kg GENERAL: This is a well-developed, well-nourished, obese white female resting on the side of her bed eating lunch currently in no acute distress. HEART: Regular rate and rhythm. 1 out of 6 systolic murmurs. no rubs or gallops. LUNGS: Diminished at the bases bilaterally. Otherwise, clear to auscultation bilaterally with equal rise and fall of the chest. ABDOMEN: Soft, nontender, nondistended with normoactive bowel sounds EXTREMETIES: No clubbing, cyanosis or edema. 2+ peripheral pulses bilaterally. NEURO: Awake, alert and oriented 3. Cranial nerves II through XII are grossly intact. Results Laboratory Results: 01/08/17 03:50 01/08/17 03:50 01/06/17 01/06/17 01/06/17 10:47 10:47 15:30 Creatine Kinase 25 L 28 L CK-MB (CK-2) 0.91 Troponin I 0.029 NT-Pro-B Natriuret Pep 01/06/17 01/06/17 01/06/17 15:30 22:15 22:15 Creatine Kinase 34 CK-MB (CK-2) 1.18 1.51 Troponin I 0.030 0.033 NT-Pro-B Natriuret Pep 01/07/17 05:19 Creatine Kinase CK-MB (CK-2) Troponin I NT-Pro-B Natriuret Pep 1420 H Impressions: Chest/Abdomen CTA 01/06/17 05:14 IMPRESSION: 1. Moderate pulmonary edema pattern. Differential diagnosis includes CHF, multifocal pneumonia, lymphangitic spread of tumor, and/or chronic interstitial lung disease. 2. Pulmonary arterial hypertension. No evidence of pulmonary embolus. 3. Indeterminate thyroid lesions ; thyroid sonogram recommended. Abdomen/Pelvis CT 01/08/17 00:00 IMPRESSION: NO SIGNIFICANT OR ACUTE ABDOMINAL PROCESS. 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 Chest X-Ray 01/08/17 06:00 IMPRESSION: No significant interval change. Qualifiers PATEINT BEING DISCHARGED WITH ANY OF THE FOLLOWING DIAGNOSIS?: No Plan Time Spent: Less than 30 Minutes
== END 2017-01-11 13:35 | disposition home health service (06) | DRG 189 ==
LOC: ER 03:24 → UNDOADMIN 08:15 → EH 08:15 → UNDOADMIN 08:24 → 3S 08:40 → EH 09:41 → 3S 09:41
PROVIDERS: ADMIT Family Medicine; ATTEND Family Medicine
PROC: 5A09357 Assistance with Respiratory Ventilation, Less than 24 Consecutive Hours, Continuous Positive Airway Pressure (ICD-10-PCS; principal; 2017-01-06)
DX: J96.21 Acute and chronic respiratory failure with hypoxia (principal); I50.31 Acute diastolic (congestive) heart failure; N30.01 Acute cystitis with hematuria; I16.1 Hypertensive emergency; I11.0 Hypertensive heart disease with heart failure; Z66 Do not resuscitate; D64.9 Anemia, unspecified; E83.42 Hypomagnesemia; E11.9 Type 2 diabetes mellitus without complications; I25.10 Atherosclerotic heart disease of native coronary artery without angina pectoris; I27.2 Other secondary pulmonary hypertension; E78.5 Hyperlipidemia, unspecified; K21.9 Gastro-esophageal reflux disease without esophagitis; E66.01 Morbid (severe) obesity due to excess calories; Z68.36 Body mass index [BMI] 36.0-36.9, adult; Z79.84 Long term (current) use of oral hypoglycemic drugs; Z79.899 Other long term (current) drug therapy; Z85.3 Personal history of malignant neoplasm of breast; Z90.12 Acquired absence of left breast and nipple; Z90.49 Acquired absence of other specified parts of digestive tract; Z87.891 Personal history of nicotine dependence; Z88.0 Allergy status to penicillin
CPT/HCPCS: 36415; 71010; 71020; 71275; 74176; 80048; 80053; 80061; 81001; 82272; 82550; 82553; 82803; 82962; 83036; 83735; 83880; 84443; 84484; 85025; 87040; 87077; 87086; 87186; 87493; 93005; 93010; 93306; 94660; 94799; 99291; J0360; J0696; J1650; J1815; J1940; J3490

== ENCOUNTER 2017-01-24 17:52 | Emergency (ER) | payer MEDICARE, MEDICAID ==
--- NOTE | 2017-01-24 18:42 | ER Document Report ---
ED Medical Screen (RME) - General Chief Complaint: Leg Pain Stated Complaint: RIGHT LEG PAIN Time Seen by Provider: 01/24/17 18:04 Mode of Arrival: Wheelchair Information source: Patient TRAVEL OUTSIDE OF THE [place] IN LAST 30 DAYS: No - HPI Patient complains to provider of: Right lower extremity pain Notes: 01/24/17 18:41 Patient is a 81-year-old female with a history of COPD, who was recently hospitalized on 01/06 for approximately 1 week, she presents to the emergency room today complaining of worsening right lower extremity pain, denies any injury or trauma, she denies any chest pain or shortness of breath, her pulse ox is 90% in triage area, however she is not wearing oxygen and typically wears 2 L at home - Related Data Allergies/Adverse Reactions: Penicillins Adverse Reaction (Verified 01/24/17 18:01) Hallucinations Past Medical History - Past Medical History Cardiac Medical History: Reports: Hx Congestive Heart Failure, Hx Hypercholesterolemia, Hx Hypertension Denies: Hx DVT Pulmonary Medical History: Denies: Hx Tuberculosis Endocrine Medical History: Reports: Hx Diabetes Mellitus Type 2 Renal/ Medical History: Denies: Hx Peritoneal Dialysis Malignancy Medical History: Reports: Hx Breast Cancer - LEFT MASTECTOMY GI Medical History: Reports: Hx Gastroesophageal Reflux Disease Musculoskeltal Medical History: Reports Hx Arthritis Psychiatric Medical History: Reports: Hx Bipolar Disorder, Hx Depression Past Surgical History: Reports: Hx Cholecystectomy, Hx Mastectomy - left side. Denies: Hx Pacemaker - Immunizations Hx Diphtheria, Pertussis, Tetanus Vaccination: No History of Influenza Vaccine for 01/2017 - 06/2017 Season: Unknown Physical Exam - Vital signs Vitals: Temp Pulse Resp BP Pulse Ox 97.9 F 77 18 134/45 H 90 L 01/24/17 18:00 01/24/17 18:00 01/24/17 18:00 01/24/17 18:00 01/24/17 18:00 Course - Vital Signs Vital signs: Temp Pulse Resp BP Pulse Ox 97.9 F 77 18 134/45 H 90 L 01/24/17 18:00 01/24/17 18:00 01/24/17 18:00 01/24/17 18:00 01/24/17 18:00
[2017-01-24] MEDS ORDERED: LIDOCAINE 5% (700 MG) TRANSDERMAL ADH..PATCH TP ONE (20:32)
[2017-01-24] MEDS ORDERED: NAPROXEN 250 MG TABLET PO ONE (20:32)
--- NOTE | 2017-01-24 20:48 | RADIOLOGY REPORT (SQ) ---
EXAM DESCRIPTION: VENOUS UNILATERAL LOWER COMPLETED DATE/TIME: 01/24/2017 8:16 pm REASON FOR STUDY: RLE pain, recent hospitalization COMPARISON: None. TECHNIQUE: Dynamic and static evans scale and color images acquired of the right leg venous system. S elected spectral images acquired with additional compression and augmentation maneuvers. The contrala teral common femoral vein and saphenofemoral junction were also imaged. Images stored on PACS. LIMITATIONS: None. FINDINGS: COMMON FEMORAL: Normal phasicity, compression and augmentation. No visualized echogenic ma terial on evans scale. No defects on color images. FEMORAL: Normal compression and augmentation. No visualized echogenic material on evans scale. No defe cts on color images. POPLITEAL: Normal compression, augmentation. No visualized echogenic material on evans scale. No defec ts on color images. CALF VESSELS: Normal compression, augmentation. No visualized echogenic material on evans scale. No de fects on color images. GSV and SSV: Normal compression, augmentation. No visualized echogenic material on evans scale. No def ects on color images. ANY DEEP VENOUS INSUFFICIENCY: Not evaluated. ANY EVIDENCE OF POPLITEAL CYST: No. OTHER: No other significant finding. CONTRALATERAL COMMON FEMORAL VEIN AND SAPHENOFEMORAL JUNCTION: Normal phasicity, compression and augmentation. No visualized echogenic material on evans scale. No de fects on color images. IMPRESSION: NO EVIDENCE OF DVT OR SVT IN THE RIGHT LEG. TECHNICAL DOCUMENTATION: JOB ID: [id number] [employer]- All Rights Reserved
--- NOTE | 2017-01-24 20:51 | ER Document Report ---
ED General - General Chief Complaint: Leg Pain Stated Complaint: RIGHT LEG PAIN Time Seen by Provider: 01/24/17 18:04 Mode of Arrival: Wheelchair Notes: Patient is a 81-year-old female who presents with right leg pain that is been present for the past 24 hours. Patient describes this as a sharp, shooting pain that radiates from her right buttock down the lateral aspect of her right lower extremity. Patient reports that the pain is intermittent and unchanged since onset. States that walking or moving the leg worsens the pain and lying still improves the pain. She denies any acute back injury. No history of similar symptoms in the past. She has not seen her primary doctor regarding today's concerns. She denies any fever, IV drug use, bowel or bladder incontinence, urinary retention, weakness or numbness. TRAVEL OUTSIDE OF THE [place] IN LAST 30 DAYS: No - Related Data Allergies/Adverse Reactions: Penicillins Adverse Reaction (Verified 01/24/17 18:01) Hallucinations Past Medical History - General Information source: Patient - Social History Smoking Status: Never Smoker Chew tobacco use (# tins/day): No Frequency of alcohol use: None Drug Abuse: None Lives with: Family Family History: DM, Other - Kidney disease - Past Medical History Cardiac Medical History: Reports: Hx Congestive Heart Failure, Hx Hypercholesterolemia, Hx Hypertension Denies: Hx DVT Pulmonary Medical History: Denies: Hx Tuberculosis Endocrine Medical History: Reports: Hx Diabetes Mellitus Type 2 Renal/ Medical History: Denies: Hx Peritoneal Dialysis Malignancy Medical History: Reports: Hx Breast Cancer - LEFT MASTECTOMY GI Medical History: Reports: Hx Gastroesophageal Reflux Disease Musculoskeltal Medical History: Reports Hx Arthritis Psychiatric Medical History: Reports: Hx Bipolar Disorder, Hx Depression Past Surgical History: Reports: Hx Cholecystectomy, Hx Mastectomy - left side. Denies: Hx Pacemaker - Immunizations Hx Diphtheria, Pertussis, Tetanus Vaccination: No Review of Systems - Review of Systems Notes: Constitutional: Negative for fever. HENT: Negative for sore throat. Eyes: Negative for visual changes. Cardiovascular: Negative for chest pain. Respiratory: Negative for shortness of breath. Gastrointestinal: Negative for abdominal pain, vomiting or diarrhea. Genitourinary: Negative for dysuria. Musculoskeletal: Positive for right leg pain Skin: Negative for rash. Neurological: Negative for headaches, weakness or numbness. 10 point ROS negative except as marked above and in HPI. Physical Exam - Vital signs Vitals: Temp Pulse Resp BP Pulse Ox 97.9 F 77 18 134/45 H 90 L 01/24/17 18:00 01/24/17 18:00 01/24/17 18:00 01/24/17 18:00 01/24/17 18:00 Interpretation: Normal Notes: PHYSICAL EXAMINATION: GENERAL: Well-appearing, well-nourished and in no acute distress. HEAD: Atraumatic, normocephalic. EYES: Pupils equal round and reactive to light, extraocular movements intact, sclera anicteric, conjunctiva are normal. ENT: nares patent, oropharynx clear without exudates. Moist mucous membranes. NECK: Normal range of motion, supple without lymphadenopathy LUNGS: Breath sounds clear to auscultation bilaterally and equal. No wheezes rales or rhonchi. HEART: Regular rate and rhythm without murmurs ABDOMEN: Soft, nontender, normoactive bowel sounds. No guarding, no rebound. No masses appreciated. EXTREMITIES: Normal range of motion, no pitting or edema. No cyanosis. Positive right straight leg test Back: No midline spinal tenderness, step-offs or deformities NEUROLOGICAL: 5 out of 5 strength both distally and proximally bilateral lower extremities. 2+ patellar reflexes bilaterally. No clonus. Sensation grossly intact in the bilateral lower extremities. Patient is able to ambulate without difficulty. PSYCH: Normal mood, normal affect. SKIN: Warm, Dry, normal turgor, no rashes or lesions noted. Course - Re-evaluation Re-evalutation: 01/24/17 20:53 Patient presents with signs and symptoms most consistent with acute sciatic nerve irritation on the right side. Positive straight leg test on the right. She has no evidence of an acute cellulitis, DVT, or occult fracture based on exam and history. Venous Doppler study ordered in triage is noted to be unremarkable. She denies any other complaint other than right-sided leg pain. She has no focal neurologic deficits, 2+ patellar reflexes bilaterally, 5 out of 5 strength both distally and proximally bilateral lower extremity's. She has not had any bowel or bladder incontinence and no urinary retention. No fever or constitutional symptoms. I do not clinically suspect an acute cauda equina syndrome, acute cord compression, or any other life-threatening pathology at this time. Patient will be started on naproxen 500 mg twice daily for the next 1 week. At this time will discharge with return precautions and follow-up recommendations. Verbal discharge instructions given a the bedside and opportunity for questions given. Medication warnings reviewed. Patient is in agreement with this plan and has verbalized understanding of return precautions and the need for primary care follow-up in the next 24-72 hours. - Vital Signs Vital signs: Temp Pulse Resp BP Pulse Ox 97.9 F 78 18 140/87 H 93 01/24/17 18:00 01/24/17 21:05 01/24/17 21:05 01/24/17 21:05 01/24/17 21:05 - Diagnostic Test Radiology reviewed: Reports reviewed Discharge - Discharge Clinical Impression: Right leg pain Sciatica Qualifiers: Laterality: right Qualified Code(s): M54.31 - Sciatica, right side Condition: Good Disposition: HOME, SELF-CARE Additional Instructions: Your seen today for sciatic nerve pain on the right side of your body. This is due to compression of 1 of the nerves of your low back that shoots pain down your leg. Apply heat to your low back as often as you are able, and take the naproxen that has been prescribed as directed for the next 1 week. Follow-up with your primary care doctor at your earliest convenience. Please follow up with your doctor as soon as possible regarding today's ED visit and your pain. Return to the ED for worsening leg/back pain, fever, weakness or numbness of either leg, or if you develop either (1) an inability to urinate or have bowel movements, or (2) loss of your ability to control your bathroom functions (if you start having "accidents"), or if you develop other new symptoms that concern you.concern you. Prescriptions: Naproxen 500 mg PO BID #14 tablet Referrals: DARREN ALEXANDER NP [Primary Care Provider] - Follow up in 3-5 days
[2017-01-24 21:06] VITALS: BP 140/87
== END 2017-01-24 21:05 | disposition home or self-care (01) ==
LOC: ER 17:52
DX: M54.31 Sciatica, right side (principal); E11.9 Type 2 diabetes mellitus without complications; I10 Essential (primary) hypertension; Z85.3 Personal history of malignant neoplasm of breast
CPT/HCPCS: 99284; 93971; A9270

== ENCOUNTER 2018-02-03 00:14 | Inpatient (IN) | payer MEDICARE, MEDICAID ==
[2018-02-03 01:00] LABS: ABSOLUTE EOSINOPHILS # (AUTO) 0.3 10^3/uL (0.0-0.6); ABSOLUTE LYMPHOCYTES (AUTO) 1.2 10^3/uL (0.5-4.7); ABSOLUTE MONOCYTES (AUTO) 0.5 10^3/uL (0.1-1.4); ABSOLUTE NEUT (AUTO) 7.1 10^3/uL (1.7-8.2); BASOPHILS % (AUTO) 0.5 % (0-2); EOSINOPHILS % (AUTO) 2.9 % (0-6); HEMATOCRIT 27.2 % (36.0-47.0); HEMOGLOBIN 8.9 g/dL (12.0-15.5); LYMPHOCYTES % (AUTO) 13.5 % (13-45); MEAN CORPUSCULAR HEMOGLOBIN 27.9 pg (27.0-33.4); MEAN CORPUSCULAR HGB CONC 32.6 g/dL (32.0-36.0); MEAN CORPUSCULAR VOLUME 86 fl (80-97); MONOCYTES % (AUTO) 5.6 % (3-13); PLATELET COUNT 208 10^3/uL (150-450); RED BLOOD COUNT 3.18 10^6/uL (3.72-5.28); RED CELL DISTRIBUTION WIDTH 19.5 % (11.5-14.0); SEGMENTED NEUTROPHILS % (AUTO) 77.5 % (42-78); TOTAL CELLS COUNTED % (AUTO) 100 %; WHITE BLOOD COUNT 9.2 10^3/uL (4.0-10.5)
--- NOTE | 2018-02-03 01:07 | RADIOLOGY REPORT (SQ) ---
EXAM DESCRIPTION: XR CHEST 1 VIEW COMPLETED DATE/TME: 02/03/2018 00:24 CLINICAL HISTORY: sob COMPARISON: 01/08/2017 FINDINGS: Single frontal view of the chest. Tortuosity of thoracic aorta. Cardiomegaly. Leads overlie the chest. Pulmonary vascular congestion with bilateral interstitial opacities. No pneumothorax or large effusion. No acute osseous abnormalities. Remote right posterior sixth rib fracture. Upper abdominal soft tissues are unremarkable. IMPRESSION: 1. Cardiomegaly with pulmonary edema.
[2018-02-03] MEDS ORDERED: FUROSEMIDE INJ/PF 20 MG/2 ML SDV IV ONE (01:12)
[2018-02-03 01:13] LABS: ANION GAP 9 (5-19); BLOOD UREA NITROGEN 12 mg/dL (7-20); CALCIUM 9.4 mg/dL (8.4-10.2); CARBON DIOXIDE 29 mmol/L (22-30); CHLORIDE 104 mmol/L (98-107); GLUCOSE 126 mg/dL (75-110); POTASSIUM 4.8 mmol/L (3.6-5.0); SODIUM 141.8 mmol/L (137-145)
--- NOTE | 2018-02-03 01:13 | ER Document Report ---
ED General - General Chief Complaint: Shortness Of Breath Stated Complaint: DIFFICULTY BREATHING Time Seen by Provider: 02/03/18 00:24 Notes: Patient is an 82-year-old female with a past medical history of COPD with baseline oxygen dependence of 2 L of nasal cannula, CHF, hypertension, who presents with 24 hours of progressively worsening shortness of breath that became much worse when she attempted lie down to sleep tonight. Patient reports that she began coughing, wheezing and could not catch her breath prompting her to contact EMS. She is uncertain of whether or not she has had similar symptoms in the past. She has not contacted her general doctor regarding today's concerns. She does not weigh herself daily. She states that she has been compliant with all medications. TRAVEL OUTSIDE OF THE [place] IN LAST 30 DAYS: No - Related Data Allergies/Adverse Reactions: Penicillins Adverse Reaction (Verified 01/24/17 18:01) Hallucinations Past Medical History - General Information source: Patient - Social History Smoking Status: Former Smoker Frequency of alcohol use: None Drug Abuse: None Lives with: Family Family History: DM, Other - Kidney disease Patient has suicidal ideation: No Patient has homicidal ideation: No - Past Medical History Cardiac Medical History: Reports: Hx Congestive Heart Failure, Hx Hypercholesterolemia, Hx Hypertension Denies: Hx DVT Pulmonary Medical History: Reports: Hx COPD Denies: Hx Tuberculosis Endocrine Medical History: Reports: Hx Diabetes Mellitus Type 2 Renal/ Medical History: Denies: Hx Peritoneal Dialysis Malignancy Medical History: Reports: Hx Breast Cancer - LEFT MASTECTOMY GI Medical History: Reports: Hx Gastroesophageal Reflux Disease Musculoskeletal Medical History: Reports Hx Arthritis Psychiatric Medical History: Reports: Hx Bipolar Disorder, Hx Depression Past Surgical History: Reports: Hx Cholecystectomy, Hx Mastectomy - left side. Denies: Hx Pacemaker - Immunizations Hx Diphtheria, Pertussis, Tetanus Vaccination: No Review of Systems - Review of Systems Notes: Constitutional: Negative for fever. HENT: Negative for sore throat. Eyes: Negative for visual changes. Cardiovascular: Negative for chest pain. Respiratory: Positive for shortness of breath. Gastrointestinal: Negative for abdominal pain, vomiting or diarrhea. Genitourinary: Negative for dysuria. Musculoskeletal: Negative for back pain. Skin: Negative for rash. Neurological: Negative for headaches, weakness or numbness. 10 point ROS negative except as marked above and in HPI. Positive Physical Exam - Vital signs Vitals: Temp 97.6 F 02/03/18 00:25 Interpretation: Hypoxic, Tachypneic Notes: PHYSICAL EXAMINATION: GENERAL: Patient is in moderate respiratory distress, unable to speak in a full sentence. HEAD: Atraumatic, normocephalic. EYES: Pupils equal round and reactive to light, extraocular movements intact, sclera anicteric, conjunctiva are normal. ENT: nares patent, oropharynx clear without exudates. Moderately dry mucous membranes. NECK: Normal range of motion, supple without lymphadenopathy LUNGS: Moderate tachypnea, diminished breath sounds at the bases bilaterally. Crackles in the upper lobes. Unable to speak beyond 2 words per sentence. HEART: Irregularly irregular rate and rhythm without murmurs ABDOMEN: Soft, nontender, normoactive bowel sounds. No guarding, no rebound. No masses appreciated. EXTREMITIES: Normal range of motion, 1+ pitting edema in the bilateral lower 70s is equal and symmetric no cyanosis. NEUROLOGICAL: No focal neurological deficits. Moves all extremities spontaneously and on command. PSYCH: Normal mood, normal affect. SKIN: Warm, Dry, normal turgor, no rashes or lesions noted. Course - Re-evaluation Re-evalutation: 02/03/18 01:00 Patient presents in moderate respiratory distress, tachypneic, saturating 93% on 4 L by nasal cannula when she normally saturates into the mid 90s on 2 L by nasal cannula. Lung sounds are diminished significantly at the bases bilaterally, crackles in the upper lobes. Telemetry shows atrial fibrillation without rapid ventricular response and she does have a known history of atrial fibrillation per her report. The patient was placed on BiPAP, IV furosemide will be initiated, pressures are not elevated enough to initiate a nitroglycerin infusion. She will require frequent reassessments given her distress for monitoring of improvement on BiPAP as well as for the possible need for intubation. 02/03/18 02:00 Patient is now on BiPAP, markedly improved work of breathing and improved aeration on lung mentation. She is now able to speak in a sentence. Currently satting 95% on 35% FiO2. Awake, alert and oriented. Will continue to reassess 02/03/18 02:31 Patient's work of breathing continues to be improved. Continued improvement of air movement throughout. Patient does not appear to be at elevated risk any further for intubation. Will discuss with hospitalist for admission. 02/03/18 02:37 I discussed this case with Dr. Whitten who has accepted the patient for admission. - Vital Signs Vital signs: Temp Pulse Resp BP Pulse Ox 97.6 F 23 H 160/62 H 100 02/03/18 00:25 02/03/18 01:24 02/03/18 01:24 02/03/18 02:03 - Laboratory Result Diagrams: 02/03/18 00:50 02/03/18 00:50 Laboratory results interpreted by me: 02/03/18 02/03/18 02/03/18 00:50 00:50 00:50 RBC 3.18 L Hgb 8.9 L Hct 27.2 L RDW 19.5 H Glucose 126 H NT-Pro-B Natriuret Pep 748 H - Diagnostic Test Radiology reviewed: Image reviewed, Reports reviewed Radiology results interpreted by me: 02/03/18 01:58 Chest x-ray: Pulmonary edema and cardiomegaly - EKG Interpretation by Me Additional EKG results interpreted by me: 02/03/18 01:58 Sinus rhythm. Rate 83. PVCs. LVH. No ST elevations or depressions. QTC is 452. Critical Care Note - Critical Care Note Total time excluding time spent on procedures (mins): 37 Comments: Critical care time spent obtaining history from patient or surrogate, discussions with consultants, development of treatment plan with patient or surrogate, evaluation of patient's response to treatment, examination of patient , ordering and performing treatments and interventions, ordering and review of laboratory studies, re-evaluation of patient's condition, ordering and review of radiographic studies and review of old charts Discharge - Discharge Clinical Impression: Respiratory distress, Hypoxemia, Acute diastolic (congestive) heart failure Pulmonary edema Qualifiers: Chronicity: acute Qualified Code(s): J81.0 - Acute pulmonary edema Condition: Fair Disposition: ADMITTED INPATIENT Referrals: DARREN ALEXANDER, SPIRITUAL COUNSELOR [Primary Care Provider] - Follow up as needed
[2018-02-03 01:25] LABS: TROPONIN I 0.012 ng/mL
[2018-02-03] MEDS ORDERED: ACETAMINOPHEN 325 MG TABLET PO PRN (02:37)
[2018-02-03] MEDS ORDERED: MAG HYDROX/AL HYDROX/SIMETH SUSP 30 ML UDCUP PO PRN (02:37)
[2018-02-03] MEDS ORDERED: INSULIN LISPRO 100 UNIT/ML 3 ML VIAL SUBCUT PRN (02:41)
[2018-02-03] MEDS ORDERED: DEXTROSE 40% GEL 15 GM TUBE PO PRN ×2 (02:41)
[2018-02-03] MEDS ORDERED: GLUCAGON,HUMAN RECOMB 1 MG INJ IM PRN (02:41)
[2018-02-03] MEDS ORDERED: DEXTROSE 50%-WATER 25 GM/50 ML DISP.SYRIN IV PRN ×2 (02:41)
[2018-02-03 02:57] LABS: ABSOLUTE RETICS # 0.067 10^6/uL (0.028-0.122); RETICULOCYTE COUNT (AUTO) 2.11 % (0.66-2.85)
[2018-02-03] MEDS: QUETIAPINE FUMARATE 25 MG TABLET PO SCH ×2 (03:40→22:09)
[2018-02-03 04:22] LABS: IRON(TIBC) 28.2 ug/dL (37-170)
[2018-02-03] MEDS ORDERED: HYDRALAZINE HCL INJ/PF 20 MG/1 ML SDV IV PRN (04:41)
[2018-02-03] MEDS ORDERED: LACTULOSE SYRUP 20 GM/30 ML UDCUP PO ONE (04:42)
[2018-02-03 05:23] LABS: FOLATE 9.28 ng/mL (>2.76)
[2018-02-03 05:24] LABS: CREATINE KINASE < 20 U/L (30-135)
[2018-02-03] MEDS: HEPARIN SOD (PORCINE) 5,000 UNIT/ML 1 ML SYRINGE SUBCUT SCH ×3 (05:38→22:09)
--- NOTE | 2018-02-03 07:18 | PDOC H&P ---
History of Present Illness Admission Date/PCP: 02/03/18 02:37 DARREN ALEXANDER NP Patient complains of: Shortness of breath History of Present Illness: TRISTEN SOW is a 82 year old female with a past medical history of oxygen dependent COPD, diastolic heart failure, hypertension, morbid obesity and diabetes. She presents with 2 hours of orthopnea without palpitations, chest pain, nausea vomiting or diaphoresis. Patient admits to dietary indiscretion eating primarily canned foods and increased thirst, denying change of medications. In the emergency room she is found to have anemia, uncontrolled systolic hypertension in the 180s. She receives IV Lasix and BiPAP then referred to the hospitalist for admission. Past Medical History Cardiac Medical History: Reports: Congestive Heart Failure, Hyperlipidema, Hypertension Denies: DVT Pulmonary Medical History: Reports: Chronic Obstructive Pulmonary Disease (COPD) Denies: Tuberculosis Endocrine Medical History: Reports: Diabetes Mellitus Type 2 Malignancy Medical History: Reports: Breast Cancer - LEFT MASTECTOMY GI Medical History: Reports: Gastroesophageal Reflux Disease Musculoskeltal Medical History: Reports: Arthritis Psychiatric Medical History: Reports: Bipolar Disorder, Depression Past Surgical History Past Surgical History: Reports: Cholecystectomy, Mastectomy - left side Denies: Pacemaker Social History Information Source: Patient, [facility] Records Lives with: Family Smoking Status: Former Smoker Frequency of Alcohol Use: None Hx Recreational Drug Use: No Drugs: None Hx Prescription Drug Abuse: No - Advance Directive Resuscitation Status: Full Code Family History Family History: DM, Other - Kidney disease Parental Family History Reviewed: Yes Children Family History Reviewed: Yes Sibling(s) Family History Reviewed.: Yes Medication/Allergy Home Medications: Allopurinol [Zyloprim 300 mg Tablet] 300 mg PO DAILY 01/06/17 Atorvastatin Calcium [Lipitor 40 mg Tablet] 40 mg PO DAILY 01/06/17 Ferrous Sulfate [Feosol 325 mg Tablet] 325 mg PO BID 01/06/17 Isosorbide Mononitrate [Isosorbide Mononitrate ER] 30 mg PO QAM 01/06/17 Lisinopril [Prinivil 10 mg Tablet] 10 mg PO DAILY 01/06/17 Magnesium Oxide [Mag-Ox 400 mg Tablet] 400 mg PO QAM 01/06/17 Metformin HCl [Glucophage 500 mg Tablet] 500 mg PO BID 01/06/17 Metoprolol Tartrate [Lopressor 25 mg Tablet] 25 mg PO Q12 01/06/17 Omeprazole 20 mg PO BID 01/06/17 Potassium Chloride [Klor-Con 10 Meq Capsule ER] 10 meq PO DAILY 01/06/17 Quetiapine Fumarate [Seroquel] 50 mg PO QHS 01/06/17 Tiotropium [place] [Spiriva Handihaler 5 Cap/Kit (18 Mcg/Cap)] 1 puff IH DAILY 01/06/17 Ubidecarenone/Vit E Acet [Co Q-10 100 mg Softgel] 1 cap PO DAILY 01/06/17 Furosemide [Lasix 20 mg Tablet] 20 mg PO BID #60 tablet 01/11/17 Levofloxacin [Levaquin 750 mg Tablet] 750 mg PO DAILY #5 tablet 01/11/17 Naproxen 500 mg PO BID #14 tablet 01/24/17 Allergies/Adverse Reactions: Penicillins Adverse Reaction (Verified 01/24/17 18:01) Hallucinations Review of Systems Constitutional: PRESENT: as per HPI, fatigue, weight gain Eyes: ABSENT: visual disturbances Ears: ABSENT: hearing changes Cardiovascular: PRESENT: as per HPI, dyspnea on exertion, edema, orthropnea. ABSENT: chest pain, palpitations Respiratory: PRESENT: as per HPI, dyspnea. ABSENT: cough Gastrointestinal: PRESENT: constipation Genitourinary: ABSENT: dysuria, hematuria Musculoskeletal: ABSENT: joint swelling Integumentary: ABSENT: rash, wounds Neurological: ABSENT: abnormal gait, abnormal speech, confusion, dizziness, focal weakness, syncope Psychiatric: ABSENT: anxiety, depression, homidical ideation, suicidal ideation Endocrine: ABSENT: cold intolerance, heat intolerance, polydipsia, polyuria Hematologic/Lymphatic: ABSENT: easy bleeding, easy bruising Physical Exam Vital Signs: Temp Pulse Resp BP Pulse Ox 97.5 F 80 15 195/95 H 80 L 02/03/18 04:33 02/03/18 04:33 02/03/18 04:33 02/03/18 04:33 02/03/18 04:33 Intake & Output 02/01/18 02/02/18 02/03/18 11:59 11:59 11:59 Output Total 600 Balance -600 Weight 103 kg General appearance: PRESENT: cooperative, mild distress, morbidly obese. ABSENT : disheveled Head exam: PRESENT: atraumatic, normocephalic Eye exam: PRESENT: conjunctiva pink, EOMI, PERRLA. ABSENT: scleral icterus Ear exam: PRESENT: normal external ear exam Mouth exam: PRESENT: moist, tongue midline Neck exam: PRESENT: JVD. ABSENT: carotid bruit, lymphadenopathy, thyromegaly Respiratory exam: PRESENT: clear to auscultation choco. ABSENT: rales, rhonchi, wheezes Cardiovascular exam: PRESENT: gallop, RRR. ABSENT: diastolic murmur, rubs, systolic murmur Pulses: PRESENT: normal dorsalis pedis pul Vascular exam: PRESENT: normal capillary refill GI/Abdominal exam: PRESENT: normal bowel sounds, soft. ABSENT: distended, guarding, mass, organolmegaly, rebound, tenderness Rectal exam: PRESENT: deferred Extremities exam: PRESENT: +1 edema Neurological exam: PRESENT: alert, awake, oriented to person, oriented to place , oriented to time, oriented to situation, CN II-XII grossly intact. ABSENT: motor sensory deficit Psychiatric exam: PRESENT: appropriate affect, normal mood. ABSENT: homicidal ideation, suicidal ideation Skin exam: PRESENT: dry, intact, warm. ABSENT: cyanosis, rash Results Impressions: Chest X-Ray 02/03/18 00:24 IMPRESSION: 1. Cardiomegaly with pulmonary edema. Assessment & Plan - Diagnosis (1) Acute diastolic (congestive) heart failure Is this a current diagnosis for this admission?: Yes Plan: Secondary to uncontrolled hypertension, dietary indiscretion, optimize volume status and blood pressure. BiPAP (2) Anemia Qualifiers: Anemia type: unspecified type Qualified Code(s): D64.9 - Anemia, unspecified Is this a current diagnosis for this admission?: Yes Plan: Unclear cause, follow-up anemia studies and CBC. (3) Constipation Is this a current diagnosis for this admission?: Yes Plan: Lactulose and bowel regiment - Time Time Spent: 30 to 50 Minutes
[2018-02-03 09:12] LABS: CREATINE KINASE MB 0.64 ng/mL (<4.55); TROPONIN I 0.014 ng/mL
[2018-02-03] MEDS: METOPROLOL TARTRATE 25 MG TABLET PO SCH ×2 (10:36→22:09)
[2018-02-03] MEDS: POTASSIUM CHLORIDE 10 MEQ CAPSULE.ER PO SCH (10:36)
[2018-02-03] MEDS: FUROSEMIDE INJ/PF 40 MG/4 ML SDV IV SCH (10:36)
[2018-02-03] MEDS: LISINOPRIL 10 MG TABLET PO SCH (10:36)
[2018-02-03] MEDS: ATORVASTATIN CALCIUM 40 MG TABLET PO SCH (10:36)
--- NOTE | 2018-02-03 13:23 | PDOC PROGRESS REPORT ---
Subjective Progress Note for:: 02/03/18 Subjective:: TRISTEN SOW is a 82 year old female with a past medical history of oxygen dependent COPD, diastolic heart failure, hypertension, morbid obesity and diabetes. She presents with 2 hours of orthopnea without palpitations, chest pain, nausea vomiting or diaphoresis. Patient admits to dietary indiscretion eating primarily canned foods and increased thirst, denying change of medications. In the emergency room she is found to have anemia, uncontrolled systolic hypertension in the 180s. She receives IV Lasix and BiPAP then referred to the hospitalist for admission. Patient diuresed over 600 mL's overnight. Her BiPAP has been weaned to nasal cannula 3 L/min. Maintaining saturations in the mid 90s patient states she is more comfortable. Review of her medical record shows she has moderate aortic stenosis last echocardiogram a year ago she has diastolic dysfunction grade 2 with normal ejection fraction. Troponins are negative. Reason For Visit: HEART FAILURE Physical Exam Vital Signs: Temp Pulse Resp BP Pulse Ox 97.7 F 77 17 153/67 H 94 02/03/18 11:16 02/03/18 11:16 02/03/18 11:16 02/03/18 11:16 02/03/18 11:16 Intake & Output 02/02/18 02/03/18 02/04/18 06:59 06:59 06:59 Output Total 600 Balance -600 Weight 103 kg General appearance: PRESENT: no acute distress, obese, well-developed, well- nourished Neck exam: ABSENT: carotid bruit, JVD, lymphadenopathy, thyromegaly Respiratory exam: PRESENT: clear to auscultation choco. ABSENT: rales, rhonchi, wheezes Cardiovascular exam: PRESENT: RRR, systolic murmur - 2/6 systolic. ABSENT: diastolic murmur, rubs GI/Abdominal exam: PRESENT: normal bowel sounds, soft. ABSENT: distended, guarding, mass, organolmegaly, rebound, tenderness Extremities exam: PRESENT: full ROM, +1 edema. ABSENT: calf tenderness, clubbing, pedal edema Musculoskeletal exam: ABSENT: deformity Neurological exam: PRESENT: alert, awake, oriented to person, oriented to place , oriented to time, oriented to situation, CN II-XII grossly intact. ABSENT: motor sensory deficit Results Laboratory Results: 10/14/18 08:10 TSH 1.08 02/03/18 02/03/18 08:10 08:10 Creatine Kinase < 20 L CK-MB (CK-2) 0.64 Troponin I 0.014 Impressions: Chest X-Ray 02/03/18 00:24 IMPRESSION: 1. Cardiomegaly with pulmonary edema. Assessment & Plan - Diagnosis (1) Acute diastolic (congestive) heart failure Is this a current diagnosis for this admission?: Yes Plan: Continue diuresis and current medical therapy. BMP in a.m. (2) Aortic stenosis, moderate Is this a current diagnosis for this admission?: Yes Plan: Moderate nature by 2017 echocardiogram. With a peak gradient of 50 and a mean of 30 we will repeat rule out progression (3) Constipation Is this a current diagnosis for this admission?: Yes Plan: Stool softeners as ordered (4) Acute on chronic respiratory failure with hypoxemia Is this a current diagnosis for this admission?: Yes Plan: Patient on oxygen at home due to her COPD exacerbation this time is due to diastolic heart failure. (5) Anemia Qualifiers: Anemia type: iron deficiency Iron deficiency anemia type: unspecified iron deficiency Qualified Code(s): D50.9 - Iron deficiency anemia, unspecified Is this a current diagnosis for this admission?: Yes Plan: Iron level 28 with a 7% saturation. Will order stool for occult blood recommend patient have outpatient GI evaluation. - Time Time Spent with patient: 25-34 minutes Anticipated discharge: Home
[2018-02-03 14:50] LABS: CREATINE KINASE MB 0.6 ng/mL (<4.55); TROPONIN I 0.014 ng/mL
--- NOTE | 2018-02-03 19:47 | EKG REPORT ---
SEVERITY:- ABNORMAL ECG - SINUS RHYTHM LVH WITH SECONDARY REPOLARIZATION ABNORMALITY : Confirmed by: Celia Noe MD 03-Feb-2018 19:46:10
[2018-02-04 05:27] LABS: ANION GAP 11 (5-19); BLOOD UREA NITROGEN 23 mg/dL (7-20); CARBON DIOXIDE 32 mmol/L (22-30); CHLORIDE 99 mmol/L (98-107); GLUCOSE 106 mg/dL (75-110); POTASSIUM 4.5 mmol/L (3.6-5.0); SODIUM 141.9 mmol/L (137-145)
[2018-02-04] MEDS: HEPARIN SOD (PORCINE) 5,000 UNIT/ML 1 ML SYRINGE SUBCUT SCH ×3 (06:51→23:33)
[2018-02-04] MEDS: METOPROLOL TARTRATE 25 MG TABLET PO SCH ×2 (09:37→23:32)
[2018-02-04] MEDS: POTASSIUM CHLORIDE 10 MEQ CAPSULE.ER PO SCH (09:37)
[2018-02-04] MEDS: ATORVASTATIN CALCIUM 40 MG TABLET PO SCH (09:38)
[2018-02-04] MEDS: FUROSEMIDE INJ/PF 40 MG/4 ML SDV IV SCH (09:38)
[2018-02-04] MEDS: LISINOPRIL 10 MG TABLET PO SCH (09:38)
[2018-02-04 12:39] LABS: APPEARANCE,URINE CLEAR; BILIRUBIN,URINE NEGATIVE (NEGATIVE); COLOR,URINE STRAW; GLUCOSE, URINE NEGATIVE (NEGATIVE); KETONES,URINE NEGATIVE (NEGATIVE); LEUKOCYTE ESTERASE,URINE TRACE (NEGATIVE); NITRITE,URINE POSITIVE (NEGATIVE); PROTEIN,URINE NEGATIVE (NEGATIVE); URINE SPECIFIC GRAVITY 1.008; UROBILINOGEN,URINE NEGATIVE mg/dL (<2.0)
--- NOTE | 2018-02-04 12:48 | XCELERA REPORT ---
[address] [address] Transthoracic Echocardiogram Report Name: TRISTEN SOW Age: 82 yrs Gender: Female : 1935 Patient Status: Inpatient Patient Location: [address] [place] [address] Study Date: 02/04/2018 10:02 AM Procedure: A complete two-dimensional transthoracic echocardiogram was performed (2D, M-mode, spectral and color flow Doppler). The study was technically adequate with some images being suboptimal in quality. Reason For Study: Heart failure, aortic stenosis Ordering Physician: ARIEL MODI Performed By: Darleen Martinez Interpretation Summary The left ventricular ejection fraction is normal. There is borderline concentric left ventricular hypertrophy. The left ventricle is grossly normal size. Doppler measurements suggest impaired left ventricular relaxation, which is associated with grade I/IV or mild diastolic dysfunction Wall motion cannot be accurately commented on, but no definite regional wall motion abnormalities noted. The right ventricular systolic function is normal. The left atrium is mildly dilated. The right atrium is normal in size There is a mild amount of mitral regurgitation There is no mitral valve stenosis. There is a mild amount of aortic regurgitation There is moderate aortic stenosis There is a peak gradient of 35 mm of Hg. There is a mild amount of tricuspid regurgitation There is moderate pulmonary hypertension by echo Right ventricular systolic pressure is estimated to be elevated at 40-50mmHg. There is no pericardial effusion. MMode/2D Measurements & Calculations IVSd: 0.88 cm LVIDd: 5.6 cm FS: 35.1 % Ao root diam: 2.5 cm LVIDs: 3.6 cm EDV(Teich): 152.3 ml Ao root area: 4.9 cm2 LVPWd: 0.94 cm ESV(Teich): 55.2 ml EF(Teich): 63.8 % Doppler Measurements & Calculations MV E max flavio: MV dec slope: Ao V2 max: LV V1 max P.7 cm/sec 279.4 cm/sec 6.0 mmHg MV A max flavio: 545.8 cm/sec2 Ao max P.6 mmHgLV V1 mean P.7 cm/sec MV dec time: Ao V2 mean: 3.3 mmHg MV E/A: 1.0 0.23 sec 194.7 cm/sec LV V1 max: Ao mean P.0 cm/sec 19.0 mmHg LV V1 mean: Ao V2 VTI: 69.3 cm 84.4 cm/sec LV V1 VTI: 28.4 cm PA V2 max: TR max flavio: Pulm Sys Flavio: 155.4 cm/sec 326.1 cm/sec 81.6 cm/sec PA max P.7 mmHgTR max P.0 mmHg Pulm Lepe Flavio: 66.8 cm/sec Pulm A Revs Flavio: 26.8 cm/sec Pulm A Revs Dur: 0.13 sec Pulm S/D: 1.2 Left Ventricle The left ventricle is grossly normal size. There is borderline concentric left ventricular hypertrophy. The left ventricular ejection fraction is normal. Doppler measurements suggest impaired left ventricular relaxation, which is associated with grade I/IV or mild diastolic dysfunction. Wall motion cannot be accurately commented on, but no definite regional wall motion abnormalities noted. Right Ventricle The right ventricle is grossly normal size. There is normal right ventricular wall thickness. The right ventricular systolic function is normal. Atria The right atrium is normal in size. The left atrium is mildly dilated. Interarterial septum not well visualized and not well dopplered. Cannot comment on ASD/PFO presence. Mitral Valve There is mild mitral leaflet calcification. There is no mitral valve stenosis. There is a mild amount of mitral regurgitation. Aortic Valve The aortic valve is moderately calcified. There is moderate aortic stenosis. There is a peak gradient of 35 mm of Hg. There is a mild amount of aortic regurgitation. Tricuspid Valve The tricuspid valve is not well visualized, but is grossly normal. There is no tricuspid stenosis. There is a mild amount of tricuspid regurgitation. There is moderate pulmonary hypertension by echo. Right ventricular systolic pressure is estimated to be elevated at 40-50mmHg. Pulmonic Valve The pulmonic valve is not well visualized. Great Vessels The aortic root is not well visualized but is probably normal size. The inferior vena cava appeared normal and decreased > 50% with respiration (RAP 5-10 mmHg). Effusions There is no pericardial effusion. : ARIEL MODI > Ortiz Brower
--- NOTE | 2018-02-04 13:39 | PDOC PROGRESS REPORT ---
Subjective Progress Note for:: 02/04/18 Subjective:: TRISTEN SOW is a 82 year old female with a past medical history of oxygen dependent COPD, diastolic heart failure, hypertension, morbid obesity and diabetes. She presents with 2 hours of orthopnea without palpitations, chest pain, nausea vomiting or diaphoresis. Patient admits to dietary indiscretion eating primarily canned foods and increased thirst, denying change of medications. In the emergency room she is found to have anemia, uncontrolled systolic hypertension in the 180s. She receives IV Lasix and BiPAP then referred to the hospitalist for admission. Patient diuresed over 600 mL's overnight. Her BiPAP has been weaned to nasal cannula 3 L/min. Maintaining saturations in the mid 90s patient states she is more comfortable. Review of her medical record shows she has moderate aortic stenosis last echocardiogram a year ago she has diastolic dysfunction grade 2 with normal ejection fraction. Troponins are negative. Reason For Visit: HEART FAILURE Physical Exam Vital Signs: Temp Pulse Resp BP Pulse Ox 97.8 F 56 L 15 134/45 H 96 02/04/18 11:12 02/04/18 11:12 02/04/18 11:12 02/04/18 11:12 02/04/18 11:12 Intake & Output 02/03/18 02/04/18 02/05/18 06:59 06:59 06:59 Intake Total 1007 Output Total 600 2700 Balance -600 -1693 Weight 103 kg General appearance: PRESENT: no acute distress, morbidly obese, well-developed, well-nourished Eye exam: PRESENT: conjunctiva pink, EOMI, PERRLA. ABSENT: scleral icterus Neck exam: ABSENT: carotid bruit, JVD, lymphadenopathy, thyromegaly Respiratory exam: PRESENT: clear to auscultation choco, rales - Posterior. ABSENT : rhonchi, wheezes GI/Abdominal exam: PRESENT: normal bowel sounds, soft. ABSENT: distended, guarding, mass, organolmegaly, rebound, tenderness Extremities exam: PRESENT: full ROM. ABSENT: calf tenderness, clubbing, pedal edema Results Laboratory Results: 02/04/18 04:14 02/04/18 02/04/18 04:14 10:30 Sodium 141.9 Potassium 4.5 Chloride 99 Carbon Dioxide 32 H Anion Gap 11 BUN 23 H Creatinine 0.80 Est GFR ( Amer) > 60 Est GFR (Non-Af Amer) > 60 Glucose 106 Calcium 9.0 Urine Color STRAW Urine Appearance CLEAR Urine pH 5.0 Ur Specific [place] 1.008 Urine Protein NEGATIVE Urine Glucose (UA) NEGATIVE Urine Ketones NEGATIVE Urine Blood NEGATIVE Urine Nitrite POSITIVE H Ur Leukocyte Esterase TRACE H Urine WBC (Auto) 13 Urine RBC (Auto) 1 02/03/18 02/03/18 02/03/18 08:10 08:10 13:18 Creatine Kinase < 20 L < 20 L CK-MB (CK-2) 0.64 Troponin I 0.014 02/03/18 13:18 Creatine Kinase CK-MB (CK-2) 0.60 Troponin I 0.014 Impressions: Chest X-Ray 02/03/18 00:24 IMPRESSION: 1. Cardiomegaly with pulmonary edema. Assessment & Plan - Diagnosis (1) Acute diastolic (congestive) heart failure Is this a current diagnosis for this admission?: Yes Plan: Diuresed 1600 mL past 24 hours. Patient symptomatically feels better. Continue present therapy BMP in a.m. (2) Aortic stenosis, moderate Is this a current diagnosis for this admission?: Yes Plan: Repeat echocardiogram shows moderate aortic stenosis peak gradient 35 mmHg (3) Constipation Is this a current diagnosis for this admission?: Yes (4) Acute on chronic respiratory failure with hypoxemia Is this a current diagnosis for this admission?: Yes Plan: Patient improved now on 2 L nasal cannula. (5) Anemia Qualifiers: Anemia type: iron deficiency Iron deficiency anemia type: unspecified iron deficiency Qualified Code(s): D50.9 - Iron deficiency anemia, unspecified Is this a current diagnosis for this admission?: Yes Plan: Iron level 28 with a 7% saturation. Will order stool for occult blood recommend patient have outpatient GI evaluation. (6) Pulmonary hypertension Is this a current diagnosis for this admission?: Yes Plan: 40-50 mmHg estimated by echocardiography - Time Time Spent with patient: 25-34 minutes
[2018-02-04] MEDS: QUETIAPINE FUMARATE 25 MG TABLET PO SCH (23:32)
[2018-02-05] MEDS: HEPARIN SOD (PORCINE) 5,000 UNIT/ML 1 ML SYRINGE SUBCUT SCH ×3 (05:16→21:48)
[2018-02-05 06:46] LABS: ABSOLUTE EOSINOPHILS # (AUTO) 0.2 10^3/uL (0.0-0.6); ABSOLUTE LYMPHOCYTES (AUTO) 1.9 10^3/uL (0.5-4.7); ABSOLUTE MONOCYTES (AUTO) 0.4 10^3/uL (0.1-1.4); ABSOLUTE NEUT (AUTO) 3.4 10^3/uL (1.7-8.2); BASOPHILS % (AUTO) 0.3 % (0-2); HEMATOCRIT 27.6 % (36.0-47.0); HEMOGLOBIN 9.2 g/dL (12.0-15.5); LYMPHOCYTES % (AUTO) 31.7 % (13-45); MEAN CORPUSCULAR HEMOGLOBIN 28.1 pg (27.0-33.4); MEAN CORPUSCULAR HGB CONC 33.1 g/dL (32.0-36.0); MEAN CORPUSCULAR VOLUME 85 fl (80-97); MONOCYTES % (AUTO) 7.2 % (3-13); PLATELET COUNT 188 10^3/uL (150-450); RED BLOOD COUNT 3.25 10^6/uL (3.72-5.28); RED CELL DISTRIBUTION WIDTH 19.3 % (11.5-14.0); SEGMENTED NEUTROPHILS % (AUTO) 56.8 % (42-78); TOTAL CELLS COUNTED % (AUTO) 100 %
[2018-02-05 07:05] LABS: ANION GAP 10 (5-19); BLOOD UREA NITROGEN 32 mg/dL (7-20); CALCIUM 9.2 mg/dL (8.4-10.2); CARBON DIOXIDE 35 mmol/L (22-30); CHLORIDE 98 mmol/L (98-107); GLUCOSE 108 mg/dL (75-110); POTASSIUM 4.3 mmol/L (3.6-5.0)
[2018-02-05] MEDS: SPIRONOLACTONE 25 MG TABLET PO SCH (09:09)
[2018-02-05] MEDS: ATORVASTATIN CALCIUM 40 MG TABLET PO SCH (09:09)
[2018-02-05] MEDS: LISINOPRIL 10 MG TABLET PO SCH (09:10)
[2018-02-05] MEDS: METOPROLOL SUCCINATE 50 MG TAB.SR.24H PO SCH (09:11)
--- NOTE | 2018-02-05 14:38 | PDOC PROGRESS REPORT ---
Subjective Progress Note for:: 02/05/18 Subjective:: TRISTEN SOW is a 82 year old female with a past medical history of oxygen dependent COPD, diastolic heart failure, hypertension, morbid obesity and diabetes. She presented with a 2 hour history of orthopnea without palpitations , chest pain, nausea vomiting or diaphoresis. Patient admits to dietary indiscretion eating primarily canned foods and increased thirst, denying change of medications. In the emergency room she is found to have anemia, uncontrolled systolic hypertension in the 180s. She received IV Lasix and was started on BiPAP and referred to the hospitalist for admission. She diuresed well with the IV Lasix and felt much improved by the following morning and continues to feel fairly well at present. She points out some sores on her right lower leg she would like addressed. She continues to be pain free but complains she still get short of breath with activity. Reason For Visit: HEART FAILURE Physical Exam Vital Signs: Temp Pulse Resp BP Pulse Ox 98.0 F 60 16 131/40 H 99 02/05/18 11:06 02/05/18 11:06 02/05/18 11:06 02/05/18 11:06 02/05/18 11:06 Intake & Output 02/03/18 02/04/18 02/05/18 23:59 23:59 23:59 Intake Total 889 818 222 Output Total 3000 2400 550 Balance -4882 -7023 -630 Weight 103 kg 102.8 kg General appearance: PRESENT: no acute distress, cooperative, morbidly obese Head exam: PRESENT: atraumatic, normocephalic Eye exam: ABSENT: conjunctival injection, scleral icterus Ear exam: PRESENT: normal external ear exam. ABSENT: drainage Mouth exam: PRESENT: moist, tongue midline Neck exam: ABSENT: thyromegaly, tracheal deviation Respiratory exam: PRESENT: rales - mild bibasalar, symmetrical, unlabored Cardiovascular exam: PRESENT: gallop - faint S4, RRR, systolic murmur - 2/6 at aortic root. ABSENT: clicks, diastolic murmur, rubs Vascular exam: PRESENT: normal capillary refill. ABSENT: pallor GI/Abdominal exam: PRESENT: normal bowel sounds, soft Rectal exam: PRESENT: deferred Extremities exam: ABSENT: joint swelling, pedal edema Musculoskeletal exam: ABSENT: deformity, dislocation Neurological exam: PRESENT: alert, oriented to person, oriented to place, oriented to time, oriented to situation Psychiatric exam: PRESENT: appropriate affect, normal mood Skin exam: PRESENT: abrasion - right lower leg X 2. ABSENT: jaundice, rash, urticaria Results Laboratory Results: 02/05/18 05:45 02/05/18 05:45 02/05/18 02/05/18 05:45 05:45 WBC 6.0 RBC 3.25 L Hgb 9.2 L Hct 27.6 L MCV 85 MCH 28.1 MCHC 33.1 RDW 19.3 H Plt Count 188 Seg Neutrophils % 56.8 Lymphocytes % 31.7 Monocytes % 7.2 Eosinophils % 4.0 Basophils % 0.3 Absolute Neutrophils 3.4 Absolute Lymphocytes 1.9 Absolute Monocytes 0.4 Absolute Eosinophils 0.2 Absolute Basophils 0.0 Sodium 143.0 Potassium 4.3 Chloride 98 Carbon Dioxide 35 H Anion Gap 10 BUN 32 H Creatinine 0.83 Est GFR ( Amer) > 60 Est GFR (Non-Af Amer) > 60 Glucose 108 Calcium 9.2 Magnesium 1.6 02/03/18 02/03/18 02/03/18 08:10 08:10 13:18 Creatine Kinase < 20 L < 20 L CK-MB (CK-2) 0.64 Troponin I 0.014 02/03/18 13:18 Creatine Kinase CK-MB (CK-2) 0.60 Troponin I 0.014 Impressions: Chest X-Ray 02/03/18 00:24 IMPRESSION: 1. Cardiomegaly with pulmonary edema. Assessment & Plan - Diagnosis (1) Acute diastolic (congestive) heart failure Is this a current diagnosis for this admission?: Yes Plan: Adjust medications as follows: Demadex 40 mg daily replacing Lasix, restart lisinopril, toprol-XL, ISMO, Aldactone and Lipitor. (2) Acute on chronic respiratory failure with hypoxemia Is this a current diagnosis for this admission?: Yes Plan: Treating CHF and supplementing O2 resolved the acute respiratory failure comnponent. (3) Abrasion, right lower leg, initial encounter Is this a current diagnosis for this admission?: Yes Plan: Treat with bactroban BID - Time Time Spent with patient: 35 or more minutes
[2018-02-05] MEDS ORDERED: TORSEMIDE 20 MG TABLET PO SCH (15:00)
[2018-02-05 15:17] LABS: HEMATOCRIT 28.3 % (36.0-47.0); HEMOGLOBIN 9.1 g/dL (12.0-15.5); MEAN CORPUSCULAR HEMOGLOBIN 27.2 pg (27.0-33.4); MEAN CORPUSCULAR HGB CONC 32.1 g/dL (32.0-36.0); MEAN CORPUSCULAR VOLUME 85 fl (80-97); PLATELET COUNT 193 10^3/uL (150-450); RED BLOOD COUNT 3.34 10^6/uL (3.72-5.28); RED CELL DISTRIBUTION WIDTH 19.3 % (11.5-14.0); WHITE BLOOD COUNT 6.2 10^3/uL (4.0-10.5)
[2018-02-05 15:39] LABS: ANION GAP 10 (5-19); BLOOD UREA NITROGEN 30 mg/dL (7-20); CALCIUM 9.5 mg/dL (8.4-10.2); CARBON DIOXIDE 34 mmol/L (22-30); CHLORIDE 96 mmol/L (98-107); GLUCOSE 140 mg/dL (75-110); POTASSIUM 4.6 mmol/L (3.6-5.0); SODIUM 139.9 mmol/L (137-145)
[2018-02-05] MEDS: POTASSIUM CHLORIDE 10 MEQ CAPSULE.ER PO SCH (17:35)
[2018-02-05] MEDS: MUPIROCIN 2% OINTMENT 22 GM TP SCH (17:35)
[2018-02-05] MEDS: QUETIAPINE FUMARATE 25 MG TABLET PO SCH (21:48)
[2018-02-06] MEDS: HEPARIN SOD (PORCINE) 5,000 UNIT/ML 1 ML SYRINGE SUBCUT SCH ×3 (05:40→21:37)
[2018-02-06] MEDS: ISOSORBIDE MONONITRATE 30 MG TAB.ER.24H PO SCH (09:11)
[2018-02-06] MEDS: POTASSIUM CHLORIDE 10 MEQ CAPSULE.ER PO SCH ×2 (09:12→17:05)
[2018-02-06] MEDS: METOPROLOL SUCCINATE 50 MG TAB.SR.24H PO SCH (09:12)
[2018-02-06] MEDS: SPIRONOLACTONE 25 MG TABLET PO SCH (09:12)
[2018-02-06] MEDS: MAGNESIUM OXIDE 400 MG TABLET PO SCH (09:12)
[2018-02-06] MEDS: ATORVASTATIN CALCIUM 40 MG TABLET PO SCH (09:12)
[2018-02-06] MEDS: ASPIRIN 81 MG TABLET, ENT COATED PO SCH (09:13)
[2018-02-06] MEDS: MUPIROCIN 2% OINTMENT 22 GM TP SCH ×2 (09:13→17:04)
[2018-02-06] MEDS: LISINOPRIL 10 MG TABLET PO SCH (09:13)
[2018-02-06] MEDS: TORSEMIDE 20 MG TABLET PO SCH (09:14)
[2018-02-06] MEDS: TIOTROPIUM BROMIDE DPI 5 CAP/KIT (18 MCG/CAP) IH SCH (09:20)
[2018-02-06 15:41] LABS: HEMATOCRIT 30.3 % (36.0-47.0); HEMOGLOBIN 9.8 g/dL (12.0-15.5); MEAN CORPUSCULAR HEMOGLOBIN 27.4 pg (27.0-33.4); MEAN CORPUSCULAR HGB CONC 32.5 g/dL (32.0-36.0); MEAN CORPUSCULAR VOLUME 84 fl (80-97); PLATELET COUNT 235 10^3/uL (150-450); RED BLOOD COUNT 3.59 10^6/uL (3.72-5.28); RED CELL DISTRIBUTION WIDTH 19.3 % (11.5-14.0); WHITE BLOOD COUNT 7.5 10^3/uL (4.0-10.5)
[2018-02-06 16:15] LABS: ANION GAP 9 (5-19); BLOOD UREA NITROGEN 44 mg/dL (7-20); CALCIUM 9.5 mg/dL (8.4-10.2); CARBON DIOXIDE 39 mmol/L (22-30); CHLORIDE 94 mmol/L (98-107); GLUCOSE 120 mg/dL (75-110); POTASSIUM 4.8 mmol/L (3.6-5.0); SODIUM 142.4 mmol/L (137-145)
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
[2018-02-06] MEDS: QUETIAPINE FUMARATE 25 MG TABLET PO SCH (21:37)
[2018-02-07] MEDS: HEPARIN SOD (PORCINE) 5,000 UNIT/ML 1 ML SYRINGE SUBCUT SCH ×2 (06:49→13:45)
[2018-02-07] MEDS: ISOSORBIDE MONONITRATE 30 MG TAB.ER.24H PO SCH (09:05)
[2018-02-07] MEDS: POTASSIUM CHLORIDE 10 MEQ CAPSULE.ER PO SCH (09:05)
[2018-02-07] MEDS: LISINOPRIL 10 MG TABLET PO SCH (09:06)
[2018-02-07] MEDS: ATORVASTATIN CALCIUM 40 MG TABLET PO SCH (09:06)
[2018-02-07] MEDS: SPIRONOLACTONE 25 MG TABLET PO SCH (09:06)
[2018-02-07] MEDS: MAGNESIUM OXIDE 400 MG TABLET PO SCH (09:06)
[2018-02-07] MEDS: ASPIRIN 81 MG TABLET, ENT COATED PO SCH (09:06)
[2018-02-07] MEDS: METOPROLOL SUCCINATE 50 MG TAB.SR.24H PO SCH (09:07)
[2018-02-07] MEDS: TIOTROPIUM BROMIDE DPI 5 CAP/KIT (18 MCG/CAP) IH SCH (09:07)
[2018-02-07] MEDS: TORSEMIDE 20 MG TABLET PO SCH (09:07)
[2018-02-07] MEDS: MUPIROCIN 2% OINTMENT 22 GM TP SCH (09:13)
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
[2018-02-07 11:37] VITALS: BP 114/46
== END 2018-02-07 15:04 | DRG 291 ==
LOC: ER 00:14 → OBSVTOIN 02:37 → EH 02:37 → 4S 04:11
PROVIDERS: ADMIT Internal Medicine; ATTEND Internal Medicine
DX: I11.0 Hypertensive heart disease with heart failure (principal); J96.21 Acute and chronic respiratory failure with hypoxia; Z68.41 Body mass index [BMI] 40.0-44.9, adult; N39.0 Urinary tract infection, site not specified; Z99.81 Dependence on supplemental oxygen; I50.33 Acute on chronic diastolic (congestive) heart failure; I35.0 Nonrheumatic aortic (valve) stenosis; D50.9 Iron deficiency anemia, unspecified; J44.9 Chronic obstructive pulmonary disease, unspecified; E78.5 Hyperlipidemia, unspecified; E11.8 Type 2 diabetes mellitus with unspecified complications; K21.9 Gastro-esophageal reflux disease without esophagitis; E66.01 Morbid (severe) obesity due to excess calories; K59.00 Constipation, unspecified; S80.811A Abrasion, right lower leg, initial encounter; B96.20 Unspecified Escherichia coli [E. coli] as the cause of diseases classified elsewhere; Z79.2 Long term (current) use of antibiotics; Z79.82 Long term (current) use of aspirin; Z79.51 Long term (current) use of inhaled steroids; Z79.899 Other long term (current) drug therapy
CPT/HCPCS: 36415; 71045; 80048; 81001; 82550; 82553; 82607; 82728; 82746; 82962; 83540; 83550; 83735; 83880; 84443; 84484; 85025; 85027; 85045; 87086; 87088; 87186; 93005; 93010; 93306; 94660; 96374; 99291; G8978-GP; G8979-GP; G8980-GP; G8987-GO; G8988-GO; G8989-GO; J1644; J1940; J3490

== ENCOUNTER → 2019-01-03 | Outpatient (CLI) | payer MEDICARE, MEDICAID ==
[2019-01-03 13:37] LABS: ALBUMIN 4.3 g/dL (3.5-5.0); ALKALINE PHOSPHATASE 90 U/L (38-126); ANION GAP 13 (5-19); ASPARTATE AMINO TRANSFERASE 21 U/L (14-36); BILIRUBIN,DIRECT 0.2 mg/dL (0.0-0.4); BILIRUBIN,TOTAL 0.3 mg/dL (0.2-1.3); BLOOD UREA NITROGEN 17 mg/dL (7-20); CALCIUM 9.4 mg/dL (8.4-10.2); CARBON DIOXIDE 25 mmol/L (22-30); CHLORIDE 101 mmol/L (98-107); GLUCOSE 118 mg/dL (75-110); POTASSIUM 5.1 mmol/L (3.6-5.0); TOTAL PROTEIN 7.3 g/dL (6.3-8.2)
== END ==
LOC: OD 11:53
PROVIDERS: ATTEND Student in an Organized Health Care Education/Training Program
DX: E87.5 Hyperkalemia (principal)
CPT/HCPCS: 36415; 80053

== ENCOUNTER 2019-07-09 01:54 | Observation (INO) | payer MEDICARE, MEDICAID ==
[2019-07-09] MEDS ORDERED: IPRATROPIUM/ALBUTEROL 0.5-2.5 MG/3 ML AMPUL NEB ONE (02:08)
[2019-07-09] MEDS ORDERED: METHYLPREDNISOLONE INJ 125 MG/2 ML SDV IV ONE (02:08)
[2019-07-09] MEDS ORDERED: BUMETANIDE INJ/PF 1 MG/4 ML SDV IV ONE (02:19)
[2019-07-09] MEDS ORDERED: FUROSEMIDE INJ/PF 20 MG/2 ML SDV IV ONE (02:19)
[2019-07-09 02:22] LABS: ABSOLUTE EOSINOPHILS # (AUTO) 0.2 10^3/uL (0.0-0.6); ABSOLUTE LYMPHOCYTES (AUTO) 1.9 10^3/uL (0.5-4.7); ABSOLUTE MONOCYTES (AUTO) 0.5 10^3/uL (0.1-1.4); ABSOLUTE NEUT (AUTO) 5.7 10^3/uL (1.7-8.2); BASOPHILS % (AUTO) 0.4 % (0-2); EOSINOPHILS % (AUTO) 2.8 % (0-6); HEMATOCRIT 30.1 % (36.0-47.0); HEMOGLOBIN 9.6 g/dL (12.0-15.5); LYMPHOCYTES % (AUTO) 22.3 % (13-45); MEAN CORPUSCULAR HGB CONC 31.8 g/dL (32.0-36.0); MEAN CORPUSCULAR VOLUME 85 fl (80-97); MONOCYTES % (AUTO) 5.7 % (3-13); PLATELET COUNT 246 10^3/uL (150-450); RED BLOOD COUNT 3.55 10^6/uL (3.72-5.28); RED CELL DISTRIBUTION WIDTH 18.7 % (11.5-14.0); SEGMENTED NEUTROPHILS % (AUTO) 68.8 % (42-78); TOTAL CELLS COUNTED % (AUTO) 100 %; WHITE BLOOD COUNT 8.3 10^3/uL (4.0-10.5)
[2019-07-09] MEDS ORDERED: DILTIAZEM HCL INJ 25 MG/5 ML VIAL IV ONE (02:22)
[2019-07-09 02:35] LABS: ALBUMIN 4.1 g/dL (3.5-5.0); ALKALINE PHOSPHATASE 112 U/L (38-126); ANION GAP 7 (5-19); ASPARTATE AMINO TRANSFERASE 35 U/L (14-36); BILIRUBIN,TOTAL 0.4 mg/dL (0.2-1.3); BLOOD UREA NITROGEN 17 mg/dL (7-20); CALCIUM 9.1 mg/dL (8.4-10.2); CARBON DIOXIDE 34 mmol/L (22-30); CHLORIDE 102 mmol/L (98-107); GLUCOSE 130 mg/dL (75-110); POTASSIUM 4.4 mmol/L (3.6-5.0); TOTAL PROTEIN 7.6 g/dL (6.3-8.2)
[2019-07-09 02:36] LABS: CREATINE KINASE < 20 U/L (30-135)
--- NOTE | 2019-07-09 02:36 | ER Document Report ---
ED General - General Mode of Arrival: Medic Information source: Patient TRAVEL OUTSIDE OF THE [place] IN LAST 30 DAYS: No - HPI Onset: Just prior to arrival Onset/Duration: Sudden, Persistent, Worse Quality of pain: Achy Severity: Moderate Pain Level: 2 Associated symptoms: Chest pain, Leg swelling, Shortness of breath, Sweating, Weakness Exacerbated by: Walking, Coughing, Deep breathing Relieved by: Denies Similar symptoms previously: No Recently seen / treated by doctor: No <MIS SNOW JR - Last Filed: 07/09/19 02:40> <SUSI ROTHMAN - Last Filed: 07/09/19 13:01> - General Chief Complaint: Shortness Of Breath Stated Complaint: DIFFICULTY BREATHING Time Seen by Provider: 07/09/19 02:13 Primary Care Provider: FLORES PERSAUD DO [Primary Care Provider] - Follow up as needed Notes: 83-year-old female arrives by EMS to room #10 with chief complaint of acute onset of respiratory distress that just occurred prior to her arriving. Patient has 3-4 word sentences patient is awake and alert and mildly anxious c omplaining of diffuse dyspnea on exertion and shortness of breath. She also has bilateral leg edema +2 pitting and stasis ulcer of left lower leg. Patient has a prior history of respiratory distress UTI dyspnea on exertion hypo-magnesium anemia chronic diastolic CHF hypertension diabetes type 2 and obesity (MIS SNOW JR) - Related Data Allergies/Adverse Reactions: Penicillins Adverse Reaction (Verified 12/16/18 13:48) Hallucinations Past Medical History - General Information source: Patient - Social History Smoking Status: Former Smoker Cigarette use (# per day): No Chew tobacco use (# tins/day): No Smoking Education Provided: No Frequency of alcohol use: None Drug Abuse: None Lives with: Alone Family History: DM, Other - Kidney disease Patient has suicidal ideation: No Patient has homicidal ideation: No - Past Medical History Cardiac Medical History: Reports: Hx Congestive Heart Failure, Hx Hypercholesterolemia, Hx Hypertension Denies: Hx Atrial Fibrillation, Hx DVT, Hx Pulmonary Embolism Pulmonary Medical History: Reports: Hx COPD, Hx Respiratory Failure - Chronic respiratory failure on home O2 at 2 L/min via nasal cannula Denies: Hx Asthma, Hx Tuberculosis Neurological Medical History: Denies: Hx Seizures Endocrine Medical History: Reports: Hx Diabetes Mellitus Type 2. Denies: Hx Diabetes Mellitus Type 1, Hx Hyperthyroidism, Hx Hypothyroidism Renal/ Medical History: Denies: Hx Peritoneal Dialysis Malignancy Medical History: Reports: Hx Breast Cancer - Status post left mastectomy GI Medical History: Reports: Hx Gastroesophageal Reflux Disease. Denies: Hx Cirrhosis, Hx Crohn's Disease, Hx Hepatitis, Hx Ulcerative Colitis Musculoskeletal Medical History: Reports Hx Arthritis, Reports Hx Gout Skin Medical History: Denies Hx Eczema, Denies Hx Psoriasis Psychiatric Medical History: Reports: Hx Bipolar Disorder, Hx Depression Infectious Medical History: Denies: Hx Hepatitis Past Surgical History: Reports: Hx Cholecystectomy, Hx Mastectomy - Left. Denies: Hx Pacemaker - Immunizations Hx Diphtheria, Pertussis, Tetanus Vaccination: No <EDYMIS Tomeka ALEJANDRA - Last Filed: 07/09/19 02:40> Review of Systems - Review of Systems Constitutional: See HPI, Malaise, Weakness EENT: No symptoms reported Cardiovascular: See HPI, Chest pain, Dizziness, Lightheaded Respiratory: See HPI, Cough, Hurts to breathe, Short of breath Gastrointestinal: No symptoms reported Genitourinary: No symptoms reported Female Genitourinary: No symptoms reported Musculoskeletal: No symptoms reported, Leg swelling, Ankle swelling Skin: See HPI, Other - Leg lesion to left rondon approximately 5 cm length by 2 cm with with eschar appears to be stasis ulceration healing patient reports that the skin lesion has been present for more than 1 week Hematologic/Lymphatic: No symptoms reported Neurological/Psychological: No symptoms reported <EDYMIS Tomeka ALEJANDRA - Last Filed: 07/09/19 02:40> Physical Exam - Vital signs Interpretation: Hypertensive, Tachycardic, Hypoxic, Febrile - HEENT Head: Normocephalic Eyes: Normal Conjunctiva: Normal Cornea: Normal Extraocular movements intact: Yes Eyelashes: Normal Pupils: PERRL Sinus: Normal Nasal: Normal Mouth/Lips: Normal Mucous membranes: Dry Pharynx: Normal Neck: Normal - Respiratory Respiratory status: Respiratory distress, Depressed respirations, Tripod position Chest status: Nontender Breath sounds: Decreased air movement, Rales, Wheezing Chest palpation: Normal - Cardiovascular Rhythm: Tachycardia Heart sounds: Normal auscultation Murmur: No Friction rub: No Diana's crunch: No - Abdominal Inspection: Morbidly Obese Distension: Distended Bowel sounds: Normal Tenderness: Nontender Organomegaly: No organomegaly - Genitourinary External exam: Normal, Other - Seen with nursing and techs in the room undressing her. - Back Back: Normal - Extremities General upper extremity: Normal inspection General lower extremity: Edema - Bilateral leg edema from feet ankles legs to her knees +2 pitting edema - Neurological Neuro grossly intact: Yes Cognition: Normal Orientation: AAOx4 [place] Coma Scale Eye Opening: Spontaneous [place] Coma Scale Verbal: Oriented [place] Coma Scale Motor: Obeys Commands [place] Coma Scale Total: 15 Speech: Normal Cranial nerves: Normal Cerebellar coordination: Normal Motor strength normal: LUE, RUE, LLE, RLE - Psychological Associated symptoms: Anxious - Skin Skin Temperature: Warm Skin Moisture: Diaphoretic <MIS SNOW JR - Last Filed: 07/09/19 02:40> - Vital signs Vitals: Temp Pulse Resp BP Pulse Ox 99.2 F 93 19 197/114 H 94 07/09/19 01:55 07/09/19 01:55 07/09/19 01:55 07/09/19 01:55 07/09/19 01:55 Course - Laboratory Result Diagrams: 07/09/19 02:10 07/09/19 02:10 - Diagnostic Test Radiology reviewed: Reports reviewed <MIS SNOW JR - Last Filed: 07/09/19 02:40> - Laboratory Result Diagrams: 07/09/19 02:10 07/09/19 02:10 <SUSI ROTHMAN - Last Filed: 07/09/19 13:01> - Vital Signs Vital signs: Temp Pulse Resp BP Pulse Ox 99.2 F 75 20 171/100 H 98 07/09/19 01:55 07/09/19 02:45 07/09/19 12:08 07/09/19 12:08 07/09/19 12:08 - Laboratory Laboratory results interpreted by ks: 07/09/19 07/09/19 07/09/19 02:10 02:10 02:10 RBC 3.55 L Hgb 9.6 L Hct 30.1 L MCHC 31.8 L RDW 18.7 H Carbonic Acid ABG pH ABG pCO2 ABG pO2 ABG HCO3 ABG Total CO2 Carbon Dioxide 34 H Glucose 130 H Creatine Kinase < 20 L NT-Pro-B Natriuret Pep 792 H Urine Protein Urine Nitrite 07/09/19 07/09/19 03:06 04:00 RBC Hgb Hct MCHC RDW Carbonic Acid 1.47 H ABG pH 7.32 L ABG pCO2 48.7 H ABG pO2 77.0 L ABG HCO3 24.8 H ABG Total CO2 26.3 H Carbon Dioxide Glucose Creatine Kinase NT-Pro-B Natriuret Pep Urine Protein 100 H Urine Nitrite POSITIVE H Critical Care Note - Critical Care Note Total time excluding time spent on procedures (mins): 90 <MIS SNOW JR - Last Filed: 07/09/19 02:40> Discharge <MIS SNOW JR - Last Filed: 07/09/19 02:40> - Discharge Admitting Provider: Priyanka (Hospitalist) Unit Admitted: Medical Floor <SUSI ROTHMAN - Last Filed: 07/09/19 13:01> - Discharge Clinical Impression: Hypoxemia, Chronic diastolic congestive heart failure, Peripheral edema Pulmonary edema Qualifiers: Chronicity: acute Qualified Code(s): J81.0 - Acute pulmonary edema High blood pressure Qualifiers: Hypertension type: essential hypertension Qualified Code(s): I10 - Essential (primary) hypertension Condition: Stable Disposition: ADMITTED INPATIENT Referrals: FLORES PERSAUD DO [Primary Care Provider] - Follow up as needed
[2019-07-09] MEDS: MAGNESIUM SULFATE/D5W 1 GM/100 ML RTUPB IV SCH ×2 (02:39→02:53)
[2019-07-09] MEDS: ALBUTEROL SULFATE 0.083% NEB 2.5 MG/3 ML AMPUL NEB SCH ×2 (02:40→03:13)
[2019-07-09 02:46] LABS: CREATINE KINASE MB 0.87 ng/mL (<4.55); TROPONIN I 0.018 ng/mL
[2019-07-09 02:51] LABS: INTERNATIONAL RATION (INR) 0.97; PROTHROMBIN TIME 12.9 SEC (11.4-15.4)
[2019-07-09 02:52] LABS: PARTIAL THROMBOPLASTIN TIME 29.7 SEC (23.5-35.8)
--- NOTE | 2019-07-09 03:05 | RADIOLOGY REPORT (SQ) ---
EXAM DESCRIPTION: XR CHEST 1 VIEW COMPLETED DATE/TME: 07/09/2019 00:00 CLINICAL HISTORY: 83 years, Female, sob COMPARISON: 11/23/2018 chest NUMBER OF VIEWS: 1 TECHNIQUE: Portable chest LIMITATIONS: None. FINDINGS: Cardiomegaly. Atheromatous change thoracic aorta. Osteopenia. Old right rib fractures. Airspace opacities in the right upper lobe, left perihilar region and left lung base. No pneumothorax. IMPRESSION: Cardiomegaly with bilateral airspace opacities. copyright 2010 [employer]- All Rights Reserved
[2019-07-09 03:38] LABS: APPEARANCE,URINE CLEAR; BILIRUBIN,URINE NEGATIVE (NEGATIVE); COLOR,URINE STRAW; GLUCOSE, URINE NEGATIVE (NEGATIVE); KETONES,URINE NEGATIVE (NEGATIVE); LEUKOCYTE ESTERASE,URINE NEGATIVE (NEGATIVE); NITRITE,URINE POSITIVE (NEGATIVE); PROTEIN,URINE 100 mg/dL (NEGATIVE); URINE SPECIFIC GRAVITY 1.009; UROBILINOGEN,URINE NEGATIVE mg/dL (<2.0)
[2019-07-09 04:06] LABS: ARTERIAL BLOOD BASE EXCESS -1.5 mmol/L; ARTERIAL BLOOD H2CO3 1.47 mmol/L (1.05-1.35); ARTERIAL BLOOD HCO3 24.8 mmol/L (20-24); ARTERIAL BLOOD O2 SATURATION 94.3 % (94-98); ARTERIAL BLOOD PCO2 48.7 mmHg (35-45); ARTERIAL BLOOD PH 7.32 (7.35-7.45); ARTERIAL BLOOD TOTAL CO2 26.3 mmol/L (21-25)
[2019-07-09 04:09] LABS: ARTERIAL BLOOD FIO2 50%
--- NOTE | 2019-07-09 11:14 | EKG REPORT ---
SEVERITY:- ABNORMAL ECG - SINUS TACHYCARDIA MULTIFORM VENTRICULAR PREMATURE COMPLEXES LVH WITH SECONDARY REPOLARIZATION ABNORMALITY : Confirmed by: Celia Noe MD 09-Jul-2019 11:13:46
--- NOTE | 2019-07-09 13:13 | ER Document Report ---
Doctor's Note Notes: 07/09/19 13:12 I was asked by the nurse of this patient to check on her, because she has been here for quite a long time and there was no disposition. Reviewing the record, it seems that signout was either inadvertently overlooked or her doctor had thought that she was already admitted. I went and spoke with the patient and examined her. She is smiling and happy. Her lungs sound clear at this time. She is still on BiPAP and has been since about 230 this morning. She has made about 700 mL's of dark urine since receiving the Bumex early this morning. I did call the hospitalist service and arrange for her admission.
[2019-07-09] MEDS ORDERED: TEMAZEPAM 7.5 MG CAPSULE PO PRN (13:46)
[2019-07-09] MEDS ORDERED: OXYCODONE-ACETAMINOPHEN 5-325 MG TABLET PO PRN (13:46)
[2019-07-09] MEDS ORDERED: PROMETHAZINE HCL INJ 25 MG/1 ML VIAL IV PRN (13:46)
[2019-07-09] MEDS ORDERED: ACETAMINOPHEN 325 MG TABLET PO PRN (13:46)
[2019-07-09] MEDS ORDERED: ONDANSETRON HCL INJ/PF 4 MG/2 ML SDV IV PRN (13:46)
[2019-07-09] MEDS ORDERED: IPRATROPIUM/ALBUTEROL 0.5-2.5 MG/3 ML AMPUL NEB PRN (13:46)
[2019-07-09] MEDS ORDERED: METOPROLOL TARTRATE PF/INJ 5 MG/5 ML SDV IV PRN (13:52)
--- NOTE | 2019-07-09 14:26 | PDOC H&P ---
History of Present Illness Admission Date/PCP: 07/09/19 13:31 FLORES PERSAUD DO History of Present Illness: TRISTEN SOW is a 83 year old female past medical history of oxygen dependent COPD, diastolic CHF diabetes, hypertension, obesity and gout presenting to ED complaining of worsening shortness of breath associated with bilateral lower extremity edema, orthopnea and paroxysmal nocturnal dyspnea. On presentation to ED was noted to be in respiratory distress with SPO2 of 77% on room air, will start breathing treatment, placed on BiPAP and diuresed with improvement of her symptoms. Hospitalist consulted for admission. Patient stated that she lives at home alone by herself, has been compliant with her medication, denies any recent sick exposure, or recent travel, denies any fever, chills, nausea, vomiting, diarrhea, constipation or any urinary symptoms. Past Medical History Cardiac Medical History: Reports: Congestive Heart Failure, Hyperlipidema, Hypertension Denies: Atrial Fibrillation, DVT, Pulmonary Embolism Pulmonary Medical History: Reports: Chronic Obstructive Pulmonary Disease (COPD), Respiratory Failure - Chronic respiratory failure on home O2 at 2 L/min via nasal cannula Denies: Asthma, Tuberculosis Neurological Medical History: Denies: Seizures Endocrine Medical History: Reports: Diabetes Mellitus Type 2 Denies: Diabetes Mellitus Type 1, Hyperthyroidism, Hypothyroidism Malignancy Medical History: Reports: Breast Cancer - Status post left mastectomy GI Medical History: Reports: Gastroesophageal Reflux Disease Denies: Cirrhosis, Crohn's Disease, Hepatitis, Ulcerative Colitis Musculoskeltal Medical History: Reports: Arthritis, Gout Skin Medical History: Denies: Eczema, Psoriasis Psychiatric Medical History: Reports: Bipolar Disorder, Depression Hematology: Reports: Anemia Denies: Bleeding Tendencies Past Surgical History Past Surgical History: Reports: Cholecystectomy, Mastectomy - Left Denies: Pacemaker Social History Lives with: Alone Smoking Status: Former Smoker Frequency of Alcohol Use: None Hx Recreational Drug Use: No Drugs: None Hx Prescription Drug Abuse: No Family History Family History: DM, Other - Kidney disease Parental Family History Reviewed: Yes Children Family History Reviewed: Yes Sibling(s) Family History Reviewed.: Yes Medication/Allergy Home Medications: Albuterol Sulfate [Proair HFA Inhalation Aerosol 8.5 gm MDI] 2 puff IH Q6HP PRN 12/16/18 Allopurinol [Zyloprim 300 mg Tablet] 300 mg PO DAILY 12/16/18 Aspirin [Ecotrin 81 mg EC Tablet] 81 mg PO DAILY 12/16/18 Atorvastatin Calcium [Lipitor 40 mg Tablet] 40 mg PO QHS 12/16/18 Cholestyramine (with Sugar) [Cholestyramine Packet] 4 gm PO BID 12/16/18 Isosorbide Mononitrate [Imdur 30 mg Tablet.er] 30 mg PO DAILY 12/16/18 Metformin HCl [Glucophage 500 mg Tablet] 500 mg PO BIDACBS 12/16/18 Metoprolol Tartrate [Lopressor 25 mg Tablet] 25 mg PO Q12 12/16/18 Omeprazole 20 mg PO BIDACBS 12/16/18 Quetiapine Fumarate [Seroquel] 50 mg PO QHS 12/16/18 Tiotropium [place] [Spiriva Handihaler 5 Cap/Kit (18 Mcg/Cap)] 1 inh IH DAILY 12/16/18 Ubidecarenone/Vit E Acet [Co Q-10 100 mg Softgel] 1 each PO DAILY 01/14/19 Clobetasol Propionate 1 applic TOP BID 07/09/19 Lisinopril [Prinivil 10 mg Tablet] 10 mg PO DAILY 07/09/19 Allergies/Adverse Reactions: Penicillins Adverse Reaction (Verified 12/16/18 13:48) Hallucinations Review of Systems Review of Systems: as per hpi Physical Exam Vital Signs: Temp Pulse Resp BP Pulse Ox 99.2 F 75 20 171/100 H 98 07/09/19 01:55 07/09/19 02:45 07/09/19 12:08 07/09/19 12:08 07/09/19 12:08 Intake & Output 07/08/19 07/09/19 07/10/19 06:59 06:59 06:59 Intake Total 193 Output Total 1200 1000 Balance -1007 -1000 Weight 90.8 kg General appearance: PRESENT: no acute distress, mild distress, obese, well- developed, well-nourished Head exam: PRESENT: atraumatic, normocephalic Respiratory exam: PRESENT: crackles, decreased breath sounds. ABSENT: rales, rhonchi, wheezes Cardiovascular exam: PRESENT: RRR. ABSENT: diastolic murmur, rubs, systolic murmur Pulses: PRESENT: normal dorsalis pedis pul GI/Abdominal exam: PRESENT: normal bowel sounds, soft. ABSENT: distended, guarding, mass, organolmegaly, rebound, tenderness Extremities exam: PRESENT: full ROM, +2 edema. ABSENT: calf tenderness, clubbing, pedal edema Neurological exam: PRESENT: alert, awake, oriented to person, oriented to place, oriented to time, oriented to situation, CN II-XII grossly intact. ABSENT: motor sensory deficit Results Laboratory Results: 07/09/19 02:10 07/09/19 02:10 07/09/19 07/09/19 07/09/19 02:10 02:10 02:10 WBC 8.3 RBC 3.55 L Hgb 9.6 L Hct 30.1 L MCV 85 MCH 27.0 MCHC 31.8 L RDW 18.7 H Plt Count 246 Seg Neutrophils % 68.8 Carbonic Acid HCO3/H2CO3 Ratio ABG pH ABG pCO2 ABG pO2 ABG HCO3 ABG O2 Saturation ABG Base Excess FiO2 Sodium 142.9 Potassium 4.4 Chloride 102 Carbon Dioxide 34 H Anion Gap 7 BUN 17 Creatinine 0.81 Est GFR ( Amer) > 60 Glucose 130 H Lactic Acid 1.3 Calcium 9.1 Total Bilirubin 0.4 AST 35 Alkaline Phosphatase 112 Total Protein 7.6 Albumin 4.1 Urine Color Urine Appearance Urine pH Ur Specific [place] Urine Protein Urine Glucose (UA) Urine Ketones Urine Blood Urine Nitrite Ur Leukocyte Esterase Urine WBC (Auto) Urine RBC (Auto) 07/09/19 07/09/19 07/09/19 02:58 03:06 04:00 WBC RBC Hgb Hct MCV MCH MCHC RDW Plt Count Seg Neutrophils % Carbonic Acid Cancelled 1.47 H HCO3/H2CO3 Ratio Cancelled 16:1 ABG pH Cancelled 7.32 L ABG pCO2 Cancelled 48.7 H ABG pO2 Cancelled 77.0 L ABG HCO3 Cancelled 24.8 H ABG O2 Saturation Cancelled 94.3 ABG Base Excess Cancelled -1.5 FiO2 Cancelled 50% Sodium Potassium Chloride Carbon Dioxide Anion Gap BUN Creatinine Est GFR ( Amer) Glucose Lactic Acid Calcium Total Bilirubin AST Alkaline Phosphatase Total Protein Albumin Urine Color STRAW Urine Appearance CLEAR Urine pH 6.0 Ur Specific [place] 1.009 Urine Protein 100 H Urine Glucose (UA) NEGATIVE Urine Ketones NEGATIVE Urine Blood NEGATIVE Urine Nitrite POSITIVE H Ur Leukocyte Esterase NEGATIVE Urine WBC (Auto) 3 Urine RBC (Auto) 0 07/09/19 07/09/19 07/09/19 02:10 02:10 02:10 Creatine Kinase < 20 L CK-MB (CK-2) 0.87 Troponin I 0.018 NT-Pro-B Natriuret Pep 792 H Impressions: Chest X-Ray 07/09/19 00:00 IMPRESSION: Cardiomegaly with bilateral airspace opacities. copyright 2010 [employer]- All Rights Reserved Assessment and Plan - Diagnosis (1) Acute respiratory failure with hypoxia Is this a current diagnosis for this admission?: Yes Plan: Most likely due to acute CHF exacerbation complicated by underlying COPD. Admit to floor, strict in and out, fluid restriction, BiPAP, duo nebs, DE LUNA, LABA, ICS, incentive spirometry, flutter valve. (2) Hypertensive urgency Is this a current diagnosis for this admission?: Yes Plan: Likely due to noncompliance. SBP on admission 258/102. Admit to floor, resume home meds, PRN IV hydralazine and IV metoprolol. Adjust meds as needed. Consult discharge planning for possible home health arrangement. (3) Obesity Qualifiers: Body mass index: BMI 36.0-36.9 Is this a current diagnosis for this admission?: Yes Plan: Diet and lifestyle modification recommended. (4) Acute on chronic diastolic heart failure Is this a current diagnosis for this admission?: Yes Plan: Acute diastolic CHF exacerbation. Likely due to noncompliance. Strict in and out, fluid restriction, IV Lasix, LUCIANA, beta-blockers. (5) Type 2 diabetes mellitus Qualifiers: Diabetes mellitus complication status: with hyperglycemia Is this a current diagnosis for this admission?: Yes Plan: Well-controlled. Hemoglobin A1c 5.7. Takes metformin as outpatient. Diabetic diet, sliding scale insulin, Accu-Chek and hypoglycemia protocol. Resume home meds. Outpatient PCP follow-up. (6) COPD (chronic obstructive pulmonary disease) Qualifiers: Emphysema type: unspecified Is this a current diagnosis for this admission?: Yes Plan: History of oxygen dependent COPD. 2 L/min. Does not seem to be acutely exacerbated. Resume home meds. Outpatient PCP follow-up.
[2019-07-09] MEDS: IPRATROPIUM/ALBUTEROL 0.5-2.5 MG/3 ML AMPUL NEB SCH ×2 (14:35→21:35)
[2019-07-09] MEDS: LISINOPRIL 10 MG TABLET PO SCH (16:29)
[2019-07-09] MEDS: METFORMIN HCL 500 MG TABLET PO SCH (16:30)
[2019-07-09] MEDS: FLUTICASONE/UMECLIDIN/VILANTER 100-62.5-25 MCG/DOSE IH SCH (16:30)
[2019-07-09] MEDS: ASPIRIN 81 MG TABLET, CHEWABLE PO SCH (16:30)
[2019-07-09] MEDS: ALLOPURINOL 300 MG TABLET PO SCH (16:32)
[2019-07-09] MEDS ORDERED: (PENDING PHARMACY ID) (Quetiapine Fumarate [Seroquel] 50 MG) PO SCH (18:00)
[2019-07-09] MEDS: CHOLESTYRAMINE 4 GM PACKET PO SCH (18:10)
[2019-07-09] MEDS: FUROSEMIDE INJ/PF 20 MG/2 ML SDV IV SCH (18:10)
[2019-07-09] MEDS: FAMOTIDINE 20 MG TABLET PO SCH (21:40)
[2019-07-09] MEDS: METHYLPREDNISOLONE INJ 40 MG/1 ML SDV IV SCH (21:40)
[2019-07-09] MEDS: ATORVASTATIN CALCIUM 40 MG TABLET PO SCH (21:41)
[2019-07-09] MEDS: QUETIAPINE FUMARATE 25 MG TABLET PO SCH (21:41)
[2019-07-09] MEDS: METOPROLOL TARTRATE 25 MG TABLET PO SCH (21:41)
[2019-07-09] MEDS ORDERED: FAMOTIDINE 20 MG TABLET PO SCH (22:00)
[2019-07-09] MEDS ORDERED: QUETIAPINE FUMARATE 100 MG TABLET PO SCH (22:00)
[2019-07-10 05:25] LABS: ABSOLUTE LYMPHOCYTES (AUTO) 0.8 10^3/uL (0.5-4.7); ABSOLUTE MONOCYTES (AUTO) 0.2 10^3/uL (0.1-1.4); ABSOLUTE NEUT (AUTO) 6.6 10^3/uL (1.7-8.2); BASOPHILS % (AUTO) 0.1 % (0-2); EOSINOPHILS % (AUTO) 0.1 % (0-6); HEMATOCRIT 25.2 % (36.0-47.0); HEMOGLOBIN 8.3 g/dL (12.0-15.5); LYMPHOCYTES % (AUTO) 10.7 % (13-45); MEAN CORPUSCULAR HEMOGLOBIN 27.8 pg (27.0-33.4); MEAN CORPUSCULAR HGB CONC 33.1 g/dL (32.0-36.0); MEAN CORPUSCULAR VOLUME 84 fl (80-97); MONOCYTES % (AUTO) 2.4 % (3-13); PLATELET COUNT 216 10^3/uL (150-450); RED CELL DISTRIBUTION WIDTH 18.4 % (11.5-14.0); SEGMENTED NEUTROPHILS % (AUTO) 86.7 % (42-78); TOTAL CELLS COUNTED % (AUTO) 100 %; WHITE BLOOD COUNT 7.7 10^3/uL (4.0-10.5)
[2019-07-10 05:41] LABS: ALBUMIN 3.6 g/dL (3.5-5.0); ALKALINE PHOSPHATASE 82 U/L (38-126); ANION GAP 8 (5-19); ASPARTATE AMINO TRANSFERASE 37 U/L (14-36); BILIRUBIN,DIRECT 0.3 mg/dL (0.0-0.4); BILIRUBIN,TOTAL 0.3 mg/dL (0.2-1.3); BLOOD UREA NITROGEN 36 mg/dL (7-20); CALCIUM 8.9 mg/dL (8.4-10.2); CARBON DIOXIDE 31 mmol/L (22-30); CHLORIDE 101 mmol/L (98-107); GLUCOSE 186 mg/dL (75-110); POTASSIUM 4.6 mmol/L (3.6-5.0); TOTAL PROTEIN 6.8 g/dL (6.3-8.2)
[2019-07-10] MEDS: FUROSEMIDE INJ/PF 20 MG/2 ML SDV IV SCH ×2 (05:48→17:16)
[2019-07-10] MEDS: METHYLPREDNISOLONE INJ 40 MG/1 ML SDV IV SCH ×3 (05:48→21:23)
[2019-07-10] MEDS: IPRATROPIUM/ALBUTEROL 0.5-2.5 MG/3 ML AMPUL NEB SCH ×3 (08:12→19:59)
[2019-07-10] MEDS: ISOSORBIDE MONONITRATE 30 MG TAB.ER.24H PO SCH (09:21)
[2019-07-10] MEDS: FERROUS SULFATE 325 MG TABLET PO SCH (09:21)
[2019-07-10] MEDS: FOLIC ACID 1 MG TABLET PO SCH (09:21)
[2019-07-10] MEDS: ASPIRIN 81 MG TABLET, CHEWABLE PO SCH (09:21)
[2019-07-10] MEDS: MULTIVITAMIN TABLET PO SCH (09:21)
[2019-07-10] MEDS: METOPROLOL TARTRATE 25 MG TABLET PO SCH ×2 (09:21→21:23)
[2019-07-10] MEDS: DOCUSATE SODIUM 100 MG CAPSULE PO SCH (09:22)
[2019-07-10] MEDS: METFORMIN HCL 500 MG TABLET PO SCH ×2 (09:22→17:15)
[2019-07-10] MEDS: LISINOPRIL 10 MG TABLET PO SCH (09:22)
[2019-07-10] MEDS: ENOXAPARIN SODIUM INJ 40 MG/0.4 ML DISP.SYRIN SUBCUT SCH (09:23)
[2019-07-10] MEDS: CHOLESTYRAMINE 4 GM PACKET PO SCH ×2 (09:23→17:19)
[2019-07-10] MEDS: FLUTICASONE/UMECLIDIN/VILANTER 100-62.5-25 MCG/DOSE IH SCH (09:23)
[2019-07-10] MEDS: ALLOPURINOL 300 MG TABLET PO SCH (09:28)
[2019-07-10] MEDS ORDERED: SPIRONOLACTONE 25 MG TABLET PO SCH (10:00)
--- NOTE | 2019-07-10 13:24 | PDOC PROGRESS REPORT ---
Subjective Progress Note for:: 07/10/19 Subjective:: TRISTEN SOW is a 83 year old female past medical history of oxygen dependent COPD, diastolic CHF diabetes, hypertension, obesity and gout presenting to ED complaining of worsening shortness of breath associated with bilateral lower extremity edema, orthopnea and paroxysmal nocturnal dyspnea. On presentation to ED was noted to be in respiratory distress with SPO2 of 77% on room air, will start breathing treatment, placed on BiPAP and diuresed with improvement of her symptoms. Hospitalist consulted for admission. Patient stated that she lives at home alone by herself, has been compliant with her medication, denies any recent sick exposure, or recent travel, denies any fever, chills, nausea, vomiting, diarrhea, constipation or any urinary symptoms. 07/10/2019. No acute events overnight. Denies any fever, chills, nausea, vomiting, diarrhea, constipation or any urinary symptoms. Shortness of breath improving, blood pressure not optimized. Possible discharge home tomorrow. Reason For Visit: HYPERTENSIVE URGENCY,ACUTE RESPIRATORY FAILURE, Physical Exam Vital Signs: Temp Pulse Resp BP Pulse Ox 98.0 F 72 16 168/69 H 96 07/10/19 08:03 07/10/19 08:14 07/10/19 08:14 07/10/19 08:03 07/10/19 08:14 Intake & Output 07/09/19 07/10/19 07/11/19 06:59 06:59 06:59 Intake Total 193 345 Output Total 1200 1600 Balance -1007 -1255 Weight 90.8 kg 90.8 kg General appearance: PRESENT: no acute distress, well-developed, well-nourished Head exam: PRESENT: atraumatic, normocephalic Respiratory exam: PRESENT: clear to auscultation choco, wheezes. ABSENT: rales, rhonchi Cardiovascular exam: PRESENT: RRR. ABSENT: diastolic murmur, rubs, systolic murmur GI/Abdominal exam: PRESENT: normal bowel sounds, soft. ABSENT: distended, guarding, mass, organolmegaly, rebound, tenderness Neurological exam: PRESENT: alert, awake, oriented to person, oriented to place, oriented to time, oriented to situation, CN II-XII grossly intact. ABSENT: motor sensory deficit Results Laboratory Results: 07/10/19 04:27 07/10/19 04:27 07/10/19 07/10/19 04:27 04:27 WBC 7.7 RBC 3.00 L Hgb 8.3 L Hct 25.2 L MCV 84 MCH 27.8 MCHC 33.1 RDW 18.4 H Plt Count 216 Seg Neutrophils % 86.7 H Sodium 139.5 Potassium 4.6 Chloride 101 Carbon Dioxide 31 H Anion Gap 8 BUN 36 H Creatinine 0.83 Est GFR ( Amer) > 60 Glucose 186 H Calcium 8.9 Magnesium 1.8 Total Bilirubin 0.3 AST 37 H Alkaline Phosphatase 82 Total Protein 6.8 Albumin 3.6 07/09/19 07/09/19 07/09/19 02:10 02:10 02:10 Creatine Kinase < 20 L CK-MB (CK-2) 0.87 Troponin I 0.018 NT-Pro-B Natriuret Pep 792 H Impressions: Chest X-Ray 07/09/19 00:00 IMPRESSION: Cardiomegaly with bilateral airspace opacities. copyright 2011 [employer]- All Rights Reserved Assessment and Plan - Diagnosis (1) Acute respiratory failure with hypoxia Is this a current diagnosis for this admission?: Yes Plan: Most likely due to acute CHF/COPD exacerbation. 07/09/2019. ABG:pH 7.32, PCO2 48.7, PO2 77.0, FiO2 50%. Continue BiPAP, duo nebs, IV steroids, DE LUNA, LABA, ICS, incentive spirometry, flutter valve. (2) Hypertensive urgency Is this a current diagnosis for this admission?: Yes Plan: Improving. Not optimized. Likely due to noncompliance. SBP on admission 258/102. Home meds are: Imdur 30 mg p.o. daily, metoprolol tartrate 25 mg p.o. twice daily, lisinopril 10 mg p.o. daily. Continue Imdur 30 mg p.o. daily, metoprolol tartrate 25 p.o. twice daily, increase lisinopril to 20 mg p.o. daily. Continue monitoring vitals. Adjust meds as needed. Outpatient PCP follow-up. Consult discharge planning for possible home health arrangement. (3) Obesity Qualifiers: Body mass index: BMI 36.0-36.9 Is this a current diagnosis for this admission?: Yes Plan: Diet and lifestyle modification recommended. (4) Acute on chronic diastolic heart failure Is this a current diagnosis for this admission?: Yes Plan: Acute on chronic diastolic CHF exacerbation. Likely due to noncompliance. Strict in and out, fluid restriction, IV Lasix, LUCIANA, beta-blockers. (5) Type 2 diabetes mellitus Qualifiers: Diabetes mellitus complication status: with hyperglycemia Is this a current diagnosis for this admission?: Yes Plan: Well-controlled. Hemoglobin A1c 5.7. Takes metformin as outpatient. Diabetic diet, sliding scale insulin, Accu-Chek and hypoglycemia protocol. Resume home meds. Outpatient PCP follow-up. (6) COPD (chronic obstructive pulmonary disease) Qualifiers: Emphysema type: unspecified Is this a current diagnosis for this admission?: Yes Plan: History of oxygen dependent COPD. 2 L/min. Mild wheezing on bilateral lung dwyer. Plan as per #1. Outpatient PCP follow-up.
[2019-07-10] MEDS ORDERED: LISINOPRIL 10 MG TABLET PO ONE (15:00)
[2019-07-10] MEDS: QUETIAPINE FUMARATE 25 MG TABLET PO SCH (21:22)
[2019-07-10] MEDS: FAMOTIDINE 20 MG TABLET PO SCH (21:22)
[2019-07-10] MEDS: ATORVASTATIN CALCIUM 40 MG TABLET PO SCH (21:23)
[2019-07-11] MEDS: FUROSEMIDE INJ/PF 20 MG/2 ML SDV IV SCH (05:11)
[2019-07-11] MEDS: METHYLPREDNISOLONE INJ 40 MG/1 ML SDV IV SCH (05:11)
[2019-07-11] MEDS: IPRATROPIUM/ALBUTEROL 0.5-2.5 MG/3 ML AMPUL NEB SCH ×2 (08:33→13:49)
[2019-07-11] MEDS ORDERED: PREDNISONE 20 MG TABLET PO SCH (10:00)
[2019-07-11] MEDS ORDERED: LISINOPRIL 10 MG TABLET PO SCH ×3 (10:00)
[2019-07-11] MEDS ORDERED: FUROSEMIDE 40 MG TABLET PO SCH (10:00)
[2019-07-11] MEDS: FOLIC ACID 1 MG TABLET PO SCH (11:24)
[2019-07-11] MEDS: MULTIVITAMIN TABLET PO SCH (11:24)
[2019-07-11] MEDS: METFORMIN HCL 500 MG TABLET PO SCH ×2 (11:24→16:21)
[2019-07-11] MEDS: FERROUS SULFATE 325 MG TABLET PO SCH (11:25)
[2019-07-11] MEDS: DOCUSATE SODIUM 100 MG CAPSULE PO SCH (11:25)
[2019-07-11] MEDS: ISOSORBIDE MONONITRATE 30 MG TAB.ER.24H PO SCH (11:25)
[2019-07-11] MEDS: METOPROLOL TARTRATE 25 MG TABLET PO SCH (11:25)
[2019-07-11] MEDS: ENOXAPARIN SODIUM INJ 40 MG/0.4 ML DISP.SYRIN SUBCUT SCH (11:27)
[2019-07-11] MEDS: ASPIRIN 81 MG TABLET, CHEWABLE PO SCH (11:27)
[2019-07-11] MEDS: CHOLESTYRAMINE 4 GM PACKET PO SCH ×2 (11:29→18:07)
[2019-07-11] MEDS: FLUTICASONE/UMECLIDIN/VILANTER 100-62.5-25 MCG/DOSE IH SCH (11:29)
[2019-07-11] MEDS: ALLOPURINOL 300 MG TABLET PO SCH (11:30)
[2019-07-11] MEDS ORDERED: CEPHALEXIN 500 MG CAPSULE PO SCH (14:00)
[2019-07-11] MEDS ORDERED: AMLODIPINE BESYLATE 5 MG TABLET PO SCH (17:00)
[2019-07-11 18:34] VITALS: BP 146/57
--- NOTE | 2019-07-12 15:58 | PDOC DISCHARGE SUMMARY ---
Impression - Admit/DC Date/PCP Admission Date/Primary Care Provider: 07/09/19 13:31 FLORES PERSAUD DO Discharge Date: 07/11/19 - Discharge Diagnosis (1) Acute respiratory failure with hypoxia Is this a current diagnosis for this admission?: Yes (2) Hypertensive urgency Is this a current diagnosis for this admission?: Yes (3) Obesity Is this a current diagnosis for this admission?: Yes (4) Acute on chronic diastolic heart failure Is this a current diagnosis for this admission?: Yes (5) Type 2 diabetes mellitus Is this a current diagnosis for this admission?: Yes (6) COPD (chronic obstructive pulmonary disease) Is this a current diagnosis for this admission?: Yes - Additional Information Discharge Diet: Cardiac, Diabetic Discharge Activity: Activity As Tolerated, Balance Activity w/Rest, Weigh Daily Referrals: FLORES PERSAUD DO [Primary Care Provider] - 07/21/19 3:00 pm Prescriptions: Prednisone [Deltasone 20 mg Tablet] 20 mg PO DAILY 4 Days #8 tablet Cephalexin Monohydrate [Keflex 500 mg Capsule] 500 mg PO TID 4 Days #12 capsule Furosemide [Lasix 40 mg Tablet] 40 mg PO QAM 30 Days #30 tablet Amlodipine Besylate [Norvasc 5 mg Tablet] 5 mg PO DAILY 30 Days #30 tablet Lisinopril [Zestril] 40 mg PO DAILY 30 Days #30 tablet Home Medications: Albuterol Sulfate [Proair HFA Inhalation Aerosol 8.5 gm MDI] 2 puff IH Q6HP PRN 12/16/18 Allopurinol [Zyloprim 300 mg Tablet] 300 mg PO DAILY 12/16/18 Aspirin [Ecotrin 81 mg EC Tablet] 81 mg PO DAILY 12/16/18 Atorvastatin Calcium [Lipitor 40 mg Tablet] 40 mg PO QHS 12/16/18 Cholestyramine (with Sugar) [Cholestyramine Packet] 4 gm PO BID 12/16/18 Isosorbide Mononitrate [Imdur 30 mg Tablet.er] 30 mg PO DAILY 12/16/18 Metformin HCl [Glucophage 500 mg Tablet] 500 mg PO Q12 12/16/18 Metoprolol Tartrate [Lopressor 25 mg Tablet] 25 mg PO Q12 12/16/18 Omeprazole 20 mg PO Q12 12/16/18 Quetiapine Fumarate [Seroquel] 50 mg PO QPM 12/16/18 Tiotropium [place] [Spiriva Handihaler 5 Cap/Kit (18 Mcg/Cap)] 1 inh IH DAILY 12/16/18 Clobetasol Propionate 1 applic TOP BID 07/09/19 Ferrous Sulfate [Feosol 325 mg Tablet] 325 mg PO DAILY 07/09/19 Folic Acid [Folvite 1 mg Tablet] 1 mg PO DAILY 07/09/19 Multivitamin [Tab-A-Janette (Multiple Vitamin) Tablet] 1 tab PO DAILY 07/09/19 Amlodipine Besylate [Norvasc 5 mg Tablet] 5 mg PO DAILY 30 Days #30 tablet 07/11/19 Cephalexin Monohydrate [Keflex 500 mg Capsule] 500 mg PO TID 4 Days #12 capsule 07/11/19 Furosemide [Lasix 40 mg Tablet] 40 mg PO QAM 30 Days #30 tablet 07/11/19 Lisinopril [Zestril] 40 mg PO DAILY 30 Days #30 tablet 07/11/19 Prednisone [Deltasone 20 mg Tablet] 20 mg PO DAILY 4 Days #8 tablet 07/11/19 History of Present Illiness History of Present Illness: TRISTEN SOW is a 83 year old female past medical history of oxygen dependent COPD, diastolic CHF diabetes, hypertension, obesity and gout presenting to ED complaining of worsening shortness of breath associated with bilateral lower extremity edema, orthopnea and paroxysmal nocturnal dyspnea. On presentation to ED was noted to be in respiratory distress with SPO2 of 77% on room air, will start breathing treatment, placed on BiPAP and diuresed with improvement of her symptoms. Hospitalist consulted for admission. Patient stated that she lives at home alone by herself, has been compliant with her medication, denies any recent sick exposure, or recent travel, denies any fever, chills, nausea, vomiting, diarrhea, constipation or any urinary symptoms. Hospital Course Hospital Course: (1) Acute respiratory failure with hypoxia Moderate improvement. SPO2 WNL on 2 L. History of COPD on home oxygen 2 L nasal cannula. This was most likely due to acute CHF/COPD exacerbation. 07/09/2019. ABG:pH 7.32, PCO2 48.7, PO2 77.0, FiO2 50%. Was a started on BiPAP, duo nebs, IV steroids, DE LUNA, LABA, ICS, incentive spirometry, flutter valve. Discharged on supplemental oxygen, DE LUNA, LABA, ICS, p.o. steroids and p.o. antibiotics. (2) Hypertensive urgency Moderate improvement. Likely due to noncompliance. SBP on admission 258/102. Home meds are: Imdur 30 mg p.o. daily, metoprolol tartrate 25 mg p.o. twice daily, lisinopril 10 mg p.o. daily. Continued on Imdur 30 mg p.o. daily, metoprolol tartrate 25 p.o. twice daily, started on lisinopril 40 mg daily and amlodipine 5 mg daily. Discharged on Imdur 30 mg p.o. daily, metoprolol 25 mg p.o. twice daily, lisinopril 40 mg daily, Lasix and amlodipine 5 mg p.o. daily. Advised to follow-up with PCP for adjustment of home meds. (3) Obesity Diet and lifestyle modification recommended. (4) Acute on chronic diastolic heart failure Acute on chronic diastolic CHF exacerbation. Likely due to noncompliance. Was a started on strict in and out, fluid restriction, IV Lasix, LUCIANA, beta- blockers. Discharged on LUCIANA, beta-blockers and p.o. diuretics. (5) Type 2 diabetes mellitus Well-controlled. Hemoglobin A1c 5.7. Takes metformin as outpatient. Diabetic diet, sliding scale insulin, Accu-Chek and hypoglycemia protocol. Resume home meds. Outpatient PCP follow-up. (6) COPD (chronic obstructive pulmonary disease) History of oxygen dependent COPD. 2 L/min. Mild wheezing on bilateral lung dwyer. Plan as per #1. Outpatient PCP follow-up. Physical Exam Vital Signs: Temp Pulse Resp BP Pulse Ox 98.5 F 72 22 H 146/57 H 100 07/11/19 15:28 07/11/19 17:28 07/11/19 15:28 07/11/19 17:28 07/11/19 17:28 Intake & Output 07/11/19 07/12/19 07/13/19 06:59 06:59 06:59 Intake Total 852 740 Output Total 750 Balance 102 740 Weight 91.9 kg General appearance: PRESENT: no acute distress, obese, well-developed, well- nourished Respiratory exam: PRESENT: clear to auscultation chooc. ABSENT: rales, rhonchi, wheezes Cardiovascular exam: PRESENT: RRR. ABSENT: diastolic murmur, rubs, systolic murmur GI/Abdominal exam: PRESENT: normal bowel sounds, soft. ABSENT: distended, guarding, mass, organolmegaly, rebound, tenderness Neurological exam: PRESENT: alert, awake, oriented to person, oriented to place, oriented to time, oriented to situation, CN II-XII grossly intact. ABSENT: motor sensory deficit Results Laboratory Results: WBC 7.7 10^3/uL (4.0-10.5) 07/10/19 04:27 RBC 3.00 10^6/uL (3.72-5.28) L 07/10/19 04:27 Hgb 8.3 g/dL (12.0-15.5) L 07/10/19 04:27 Hct 25.2 % (36.0-47.0) L 07/10/19 04:27 MCV 84 fl (80-97) 07/10/19 04:27 MCH 27.8 pg (27.0-33.4) 07/10/19 04:27 MCHC 33.1 g/dL (32.0-36.0) 07/10/19 04:27 RDW 18.4 % (11.5-14.0) H 07/10/19 04:27 Plt Count 216 10^3/uL (150-450) 07/10/19 04:27 Lymph % (Auto) 10.7 % (13-45) L 07/10/19 04:27 [place] % (Auto) 2.4 % (3-13) L 07/10/19 04:27 Eos % (Auto) 0.1 % (0-6) 07/10/19 04:27 Baso % (Auto) 0.1 % (0-2) 07/10/19 04:27 Absolute Neuts (auto) 6.6 10^3/uL (1.7-8.2) 07/10/19 04:27 Absolute Lymphs (auto) 0.8 10^3/uL (0.5-4.7) 07/10/19 04:27 Absolute Monos (auto) 0.2 10^3/uL (0.1-1.4) 07/10/19 04:27 Absolute Eos (auto) 0.0 10^3/uL (0.0-0.6) 07/10/19 04:27 Absolute Basos (auto) 0.0 10^3/uL (0.0-0.2) 07/10/19 04:27 Seg Neutrophils % 86.7 % (42-78) H 07/10/19 04:27 PT 12.9 SEC (11.4-15.4) 07/09/19 02:10 INR 0.97 07/09/19 02:10 APTT 29.7 SEC (23.5-35.8) 07/09/19 02:10 Carbonic Acid 1.47 mmol/L (1.05-1.35) H 07/09/19 04:00 HCO3/H2CO3 Ratio 16:1 07/09/19 04:00 ABG pH 7.32 (7.35-7.45) L 07/09/19 04:00 ABG pCO2 48.7 mmHg (35-45) H 07/09/19 04:00 ABG pO2 77.0 mmHg (80-100) L 07/09/19 04:00 ABG HCO3 24.8 mmol/L (20-24) H 07/09/19 04:00 ABG Total CO2 26.3 mmol/L (21-25) H 07/09/19 04:00 ABG O2 Saturation 94.3 % (94-98) 07/09/19 04:00 ABG Base Excess -1.5 mmol/L 07/09/19 04:00 FiO2 50% 07/09/19 04:00 Sodium 139.5 mmol/L (137-145) 07/10/19 04:27 Potassium 4.6 mmol/L (3.6-5.0) 07/10/19 04:27 Chloride 101 mmol/L (98-107) 07/10/19 04:27 Carbon Dioxide 31 mmol/L (22-30) H 07/10/19 04:27 Anion Gap 8 (5-19) 07/10/19 04:27 BUN 36 mg/dL (7-20) H 07/10/19 04:27 Creatinine 0.83 mg/dL (0.52-1.25) 07/10/19 04:27 Est GFR ( Amer) > 60 (>60) 07/10/19 04:27 Est GFR (MDRD) Non-Af > 60 (>60) 07/10/19 04:27 Glucose 186 mg/dL (75-110) H 07/10/19 04:27 POC Glucose 141 mg/dL (70-110) H 07/10/19 16:19 Lactic Acid 1.3 mmol/L (0.7-2.1) 07/09/19 02:10 Calcium 8.9 mg/dL (8.4-10.2) 07/10/19 04:27 Magnesium 1.8 mg/dL (1.6-2.3) 07/10/19 04:27 Total Bilirubin 0.3 mg/dL (0.2-1.3) 07/10/19 04:27 Direct Bilirubin 0.3 mg/dL (0.0-0.4) 07/10/19 04:27 Neonat Total Bilirubin Not Reportable 07/10/19 04:27 Neonat Direct Bilirubin Not Reportable 07/10/19 04:27 Neonat Indirect Bili Not Reportable 07/10/19 04:27 AST 37 U/L (14-36) H 07/10/19 04:27 ALT 26 U/L (<35) 07/10/19 04:27 Alkaline Phosphatase 82 U/L (38-126) 07/10/19 04:27 Creatine Kinase < 20 U/L (30-135) L 07/09/19 02:10 CK-MB (CK-2) 0.87 ng/mL (<4.55) 07/09/19 02:10 Troponin I 0.018 ng/mL 07/09/19 02:10 NT-Pro-B Natriuret Pep 792 pg/mL (<450) H 07/09/19 02:10 Total Protein 6.8 g/dL (6.3-8.2) 07/10/19 04:27 Albumin 3.6 g/dL (3.5-5.0) 07/10/19 04:27 Urine Color STRAW 07/09/19 03:06 Urine Appearance CLEAR 07/09/19 03:06 Urine pH 6.0 (5.0-9.0) 07/09/19 03:06 Ur Specific [place] 1.009 07/09/19 03:06 Urine Protein 100 mg/dL (NEGATIVE) H 07/09/19 03:06 Urine Glucose (UA) NEGATIVE mg/dL (NEGATIVE) 07/09/19 03:06 Urine Ketones NEGATIVE mg/dL (NEGATIVE) 07/09/19 03:06 Urine Blood NEGATIVE (NEGATIVE) 07/09/19 03:06 Urine Nitrite POSITIVE (NEGATIVE) H 07/09/19 03:06 Urine Bilirubin NEGATIVE (NEGATIVE) 07/09/19 03:06 Urine Urobilinogen NEGATIVE mg/dL (<2.0) 07/09/19 03:06 Ur Leukocyte Esterase NEGATIVE (NEGATIVE) 07/09/19 03:06 Urine WBC (Auto) 3 /HPF 07/09/19 03:06 Urine RBC (Auto) 0 /HPF 07/09/19 03:06 Urine Bacteria (Auto) 3+ /HPF 07/09/19 03:06 Urine Mucus (Auto) RARE /LPF 07/09/19 03:06 Urine Ascorbic Acid NEGATIVE (NEGATIVE) 07/09/19 03:06 07/09/19 07/09/19 02:10 02:10 CK-MB (CK-2) 0.87 Troponin I 0.018 NT-Pro-B Natriuret Pep 792 H Impressions: Chest X-Ray 07/09/19 00:00 IMPRESSION: Cardiomegaly with bilateral airspace opacities. copyright 2010 [employer]- All Rights Reserved Stroke Is this a Stroke Patient?: No Acute Heart Failure - Is this a Heart Failure Patient?: No
== END 2019-07-11 19:16 | disposition home or self-care (01) ==
LOC: ER 01:54 → EH 13:31 → INTOOBSV 13:31 → 4N 14:45
PROVIDERS: ADMIT Internal Medicine; ATTEND Internal Medicine
DX: J96.01 Acute respiratory failure with hypoxia (principal); I16.0 Hypertensive urgency; I11.0 Hypertensive heart disease with heart failure; I50.33 Acute on chronic diastolic (congestive) heart failure; E11.65 Type 2 diabetes mellitus with hyperglycemia; J44.9 Chronic obstructive pulmonary disease, unspecified; M10.9 Gout, unspecified; E11.622 Type 2 diabetes mellitus with other skin ulcer; I83.028 Varicose veins of left lower extremity with ulcer other part of lower leg; L97.829 Non-pressure chronic ulcer of other part of left lower leg with unspecified severity; E66.01 Morbid (severe) obesity due to excess calories; Z90.12 Acquired absence of left breast and nipple; Z79.82 Long term (current) use of aspirin; Z79.899 Other long term (current) drug therapy; Z79.84 Long term (current) use of oral hypoglycemic drugs; Z99.81 Dependence on supplemental oxygen; Z60.2 Problems related to living alone; Z85.3 Personal history of malignant neoplasm of breast; Z90.49 Acquired absence of other specified parts of digestive tract; Z87.891 Personal history of nicotine dependence
CPT/HCPCS: 93005; 94640 ×5; 99291; 99292; 51702; 96375; 96365; 36415 ×2; 87040; 87086; 82553; 82962; 82803; 82550; 83605; 83735; 85025 ×2; 85610; 85730; 87088; 80053 ×2; 81001; 84484; 87186; 83880; 71045; 93010; 36600; 94660 ×2; 97530; 97110; 97116 ×2; 97163; 97535; 97166; G0378 ×4; A9270 ×44; J3490 ×3; J1940 ×3; J2920 ×3; J2930; J1650 ×2; J3475; J7512; J7620

== ENCOUNTER 2020-02-28 14:51 | Inpatient (IN) | payer MEDICARE, MEDICAID ==
--- NOTE | 2020-02-28 16:22 | RADIOLOGY REPORT (SQ) ---
EXAM DESCRIPTION: CHEST SINGLE VIEW IMAGES COMPLETED DATE/TIME: 02/28/2020 4:11 pm REASON FOR STUDY: Respiratory failure COMPARISON: Chest x-ray 07/09/2019, 11/23/2018. EXAM PARAMETERS: NUMBER OF VIEWS: One view. TECHNIQUE: Single frontal radiographic view of the chest acquired. RADIATION DOSE: NA LIMITATIONS: None. FINDINGS: LUNGS AND PLEURA: There are diffuse bilateral airspace opacities, more confluent at the thalia ng bases. There are small bilateral pleural effusions. No pneumothorax. MEDIASTINUM AND HILAR STRUCTURES: Contour normal. HEART AND VASCULAR STRUCTURES: The heart is enlarged. There is vascular congestion and interstitial edema. BONES: Multilevel degenerative changes are noted at the spine. Healed right-sided rib fracture. HARDWARE: None in the chest. IMPRESSION: Cardiomegaly. Vascular congestion and interstitial edema. Small bilateral pleural effu sions. Diffuse bilateral airspace opacities, may be secondary to pneumonia and/or pulmonary edema. TECHNICAL DOCUMENTATION: JOB ID: [id number] 2010 [employer]- All Rights Reserved Reading location - IP/workstation name: [email or web address]
[2020-02-28 16:27] LABS: ABSOLUTE EOSINOPHILS # (AUTO) 0.3 10^3/uL (0.0-0.6); ABSOLUTE LYMPHOCYTES (AUTO) 2.3 10^3/uL (0.5-4.7); ABSOLUTE MONOCYTES (AUTO) 0.5 10^3/uL (0.1-1.4); BASOPHILS % (AUTO) 0.5 % (0-2); HEMOGLOBIN 8.9 g/dL (12.0-15.5); LYMPHOCYTES % (AUTO) 28.5 % (13-45); MEAN CORPUSCULAR HEMOGLOBIN 27.4 pg (27.0-33.4); MEAN CORPUSCULAR HGB CONC 31.7 g/dL (32.0-36.0); MEAN CORPUSCULAR VOLUME 86 fl (80-97); MONOCYTES % (AUTO) 6.4 % (3-13); PLATELET COUNT 212 10^3/uL (150-450); RED BLOOD COUNT 3.24 10^6/uL (3.72-5.28); RED CELL DISTRIBUTION WIDTH 18.7 % (11.5-14.0); SEGMENTED NEUTROPHILS % (AUTO) 60.6 % (42-78); TOTAL CELLS COUNTED % (AUTO) 100 %; WHITE BLOOD COUNT 8.2 10^3/uL (4.0-10.5)
[2020-02-28 16:31] LABS: ALBUMIN 3.9 g/dL (3.5-5.0); ALKALINE PHOSPHATASE 94 U/L (38-126); ANION GAP 10 (5-19); ASPARTATE AMINO TRANSFERASE 19 U/L (14-36); BILIRUBIN,DIRECT 0.2 mg/dL (0.0-0.4); BILIRUBIN,TOTAL 0.5 mg/dL (0.2-1.3); BLOOD UREA NITROGEN 17 mg/dL (7-20); CALCIUM 9.2 mg/dL (8.4-10.2); CARBON DIOXIDE 26 mmol/L (22-30); CHLORIDE 104 mmol/L (98-107); GLUCOSE 113 mg/dL (75-110); POTASSIUM 4.6 mmol/L (3.6-5.0); TOTAL PROTEIN 7.1 g/dL (6.3-8.2)
[2020-02-28 16:33] LABS: CREATINE KINASE < 20 U/L (30-135)
[2020-02-28 16:42] LABS: ARTERIAL BLOOD BASE EXCESS -0.1 mmol/L; ARTERIAL BLOOD FIO2 30%; ARTERIAL BLOOD H2CO3 1.75 mmol/L (1.05-1.35); ARTERIAL BLOOD HCO3 27.1 mmol/L (20-24); ARTERIAL BLOOD O2 SATURATION 60.7 % (94-98); ARTERIAL BLOOD PCO2 58.1 mmHg (35-45); ARTERIAL BLOOD PH 7.29 (7.35-7.45); ARTERIAL BLOOD TOTAL CO2 28.8 mmol/L (21-25)
[2020-02-28 16:42] LABS: NT PRO BNP 1130 pg/mL (<450)
[2020-02-28 16:44] LABS: ARTERIAL BLOOD PO2 35.9 mmHg (80-100)
[2020-02-28 16:45] LABS: TROPONIN I < 0.012 ng/mL
[2020-02-28 17:16] LABS: APPEARANCE,URINE CLEAR; BILIRUBIN,URINE NEGATIVE (NEGATIVE); COLOR,URINE YELLOW; GLUCOSE, URINE NEGATIVE (NEGATIVE); KETONES,URINE NEGATIVE (NEGATIVE); LEUKOCYTE ESTERASE,URINE TRACE (NEGATIVE); NITRITE,URINE NEGATIVE (NEGATIVE); PROTEIN,URINE 30 mg/dL (NEGATIVE); URINE SPECIFIC GRAVITY 1.015; UROBILINOGEN,URINE NEGATIVE mg/dL (<2.0)
--- NOTE | 2020-02-28 17:28 | ER Document Report ---
Entered by MIAH CANO SCRIBE 02/28/20 1602 Acting as scribe for:SUSI ROTHMAN MD ED Respiratory Problem - General Chief Complaint: Shortness Of Breath Stated Complaint: SHORTNESS OF BREATH Time Seen by Provider: 02/28/20 15:48 Mode of Arrival: Ambulatory Information source: Patient Notes: This 84 year old female patient presents to the emergency department today with complaints of becoming acutely short of breath at around noon today. She reports she had felt fine all morning prior to this. Patient denies any chest pain or pain with breathing despite nursing notes that state otherwise. TRAVEL OUTSIDE OF THE [place] IN LAST 30 DAYS: No - Related Data Allergies/Adverse Reactions: Penicillins Adverse Reaction (Verified 12/16/18 13:48) Hallucinations Past Medical History - General Information source: Patient - Social History Smoking Status: Never Smoker Cigarette use (# per day): No Chew tobacco use (# tins/day): No Frequency of alcohol use: None Drug Abuse: None Lives with: Family Family History: Reviewed & Not Pertinent, DM, Other - Kidney disease - Past Medical History Cardiac Medical History: Reports: Hx Congestive Heart Failure, Hx Hypercholesterolemia, Hx Hypertension Pulmonary Medical History: Reports: Hx COPD, Hx Respiratory Failure - Chronic respiratory failure on home O2 at 2 L/min via nasal cannula Endocrine Medical History: Reports: Hx Diabetes Mellitus Type 2 Malignancy Medical History: Reports: Hx Breast Cancer - Status post left mastectomy GI Medical History: Reports: Hx Gastroesophageal Reflux Disease Musculoskeletal Medical History: Reports Hx Arthritis, Reports Hx Gout Psychiatric Medical History: Reports: Hx Bipolar Disorder, Hx Depression Past Surgical History: Reports: Hx Cholecystectomy, Hx Mastectomy - Left - Immunizations Hx Diphtheria, Pertussis, Tetanus Vaccination: No Review of Systems - Review of Systems Constitutional: No symptoms reported EENT: No symptoms reported Cardiovascular: denies: Chest pain Respiratory: See HPI, Short of breath Gastrointestinal: No symptoms reported Genitourinary: No symptoms reported Female Genitourinary: No symptoms reported Musculoskeletal: No symptoms reported Skin: No symptoms reported Hematologic/Lymphatic: No symptoms reported Neurological/Psychological: No symptoms reported -: Yes All other systems reviewed and negative Physical Exam - Vital signs Vitals: Pulse Ox 86 L 02/28/20 15:04 - Notes Notes: Physical Exam: General: Alert, moderate respiratory distress, seal was not great on bi-pap, adjusted and patient states she feels better, oxygen saturation up to low 90s on bi-pap. HEENT: Normocephalic. Atraumatic. PERRL. Extraocular movements intact. Oropharynx clear. Neck: Supple. Non-tender. Respiratory: Moderate respiratory distress. Rales bilaterally, difficult to auscultate secondary to bi-pap machine noises. Cardiovascular: Regular rate and rhythm. Abdominal: Morbidly obese. Non-tender. No distension. Normal Bowel Sounds. Back: No gross abnormalities. Extremities: Moves all four extremities. Upper extremities: Normal inspection. Normal ROM. Lower extremities: Not viewed, lower extremities in body bag from EMS because of concern for possible bed bugs. Neurological: Normal cognition. AAOx4. Normal speech. Psychological: Normal affect. Normal Mood. Skin: Warm. Dry. Normal color. Course - Re-evaluation Re-evalutation: 02/28/20 19:06 The patient was evaluated during the global COVID-19 pandemic and that diagnosis was suspected/considered upon their initial presentation. Their evaluation, treatment and testing was consistent with current guidelines for patients who present with complaints or symptoms that may be related to COVID-19. 02/28/20 19:21 Patient has had about 700 mL of urine output since the Contreras catheter was placed and she was given Lasix. That urine was somewhat concentrated. She reports that her breathing does feel better and she wants to know when she is can be moved upstairs. - Vital Signs Vital signs: Temp Pulse Resp BP Pulse Ox 97.9 F 67 18 140/62 H 99 03/03/20 13:13 03/03/20 13:13 03/03/20 13:13 03/03/20 13:13 03/03/20 13:13 - Laboratory Result Diagrams: 03/02/20 06:06 03/02/20 06:06 Laboratory results interpreted by me: 02/28/20 02/28/20 02/28/20 15:15 15:15 15:15 RBC 3.24 L Hgb 8.9 L Hct 28.0 L MCHC 31.7 L RDW 18.7 H D-Dimer Carbonic Acid ABG pH ABG pCO2 ABG pO2 ABG HCO3 ABG Total CO2 ABG O2 Saturation Glucose 113 H Magnesium 1.5 L Creatine Kinase < 20 L NT-Pro-B Natriuret Pep 1130 H Urine Protein Ur Leukocyte Esterase 02/28/20 02/28/20 02/28/20 15:15 16:30 16:41 RBC Hgb Hct MCHC RDW D-Dimer 1.41 H Carbonic Acid 1.75 H ABG pH 7.29 L ABG pCO2 58.1 H ABG pO2 35.9 L* ABG HCO3 27.1 H ABG Total CO2 28.8 H ABG O2 Saturation 60.7 L Glucose Magnesium Creatine Kinase NT-Pro-B Natriuret Pep Urine Protein 30 H Ur Leukocyte Esterase TRACE H - Diagnostic Test Radiology reviewed: Image reviewed, Reports reviewed - Chest x-ray shows cardiomegaly with vascular congestion and interstitial edema. Small bilateral pleural effusion. Diffuse bilateral airspace opacities may be secondary to pneumonia and/or pulmonary edema. - EKG Interpretation by N[facility] EKG shows normal: Sinus rhythm, [place], Intervals, QRS Complexes, ST-T Waves Rate: Normal - 87 Rhythm: NSR, PVC's, APC's Voltage: Consistent with LVH When compared to previous EKG there are: No significant change - Consults Dr. Ace Time consulted: 19:39 Consulted provider: will come to ER Critical Care Note - Critical Care Note Total time excluding time spent on procedures (mins): 40 Comments: At least 40 minutes spent evaluating patient reviewing past records, rechecking the patient frequently to monitor response to treatment, and discussing the case with the hospitalist service for admission Discharge - Discharge Clinical Impression: Hypoxemia, Hypertensive emergency Congestive heart failure (CHF) Qualifiers: Heart failure type: unspecified Heart failure chronicity: acute Qualified Code(s): I50.9 - Heart failure, unspecified Pulmonary edema Qualifiers: Chronicity: acute Qualified Code(s): J81.0 - Acute pulmonary edema COPD (chronic obstructive pulmonary disease) Qualifiers: COPD type: unspecified COPD Qualified Code(s): J44.9 - Chronic obstructive pulmonary disease, unspecified Anemia Qualifiers: Anemia type: unspecified type Qualified Code(s): D64.9 - Anemia, unspecified UTI (urinary tract infection) Qualifiers: Urinary tract infection type: site unspecified Hematuria presence: without hematuria Qualified Code(s): N39.0 - Urinary tract infection, site not specified Condition: Stable Disposition: ADMITTED INPATIENT Admitting Provider: [facility] Admitted: [facility] I personally performed the services described in the documentation, reviewed and edited the documentation which was dictated to the scribe in my presence, and it accurately records my words and actions.
[2020-02-28] MEDS ORDERED: FUROSEMIDE INJ/PF 100 MG/10 ML SDV IV ONE (17:55)
[2020-02-28] MEDS ORDERED: ONDANSETRON HCL INJ/PF 4 MG/2 ML SDV IV ONE (18:59)
[2020-02-28] MEDS ORDERED: MORPHINE SULFATE 10 MG/ML INJ IV ONE (18:59)
[2020-02-28] MEDS ORDERED: ONDANSETRON HCL INJ/PF 4 MG/2 ML SDV IV PRN (20:39)
[2020-02-28] MEDS ORDERED: IPRATROPIUM/ALBUTEROL 0.5-2.5 MG/3 ML AMPUL NEB PRN (20:39)
--- NOTE | 2020-02-28 21:14 | PDOC H&P ---
History of Present Illness Admission Date/PCP: FLORES PERSAUD DO Patient complains of: Shortness of breath History of Present Illness: TRISTEN SOW is a 84 year old female with a history of diastolic heart failure, COPD on home oxygen, type 2 diabetes, and hypertension who presents with sudden worsening of shortness of breath. She reports that she was relatively inhaler normal state of health this morning when she woke up from sleep but around midday she became very short of breath even when walking about 5 to 10 feet with associated generalized weakness and dizziness. She also states that her lower extremities are more swollen than usual and she has has been wheezing and reports some dry cough but denies any fever, chills, nausea, vomiting, palpit ation, chest pain, weakness of extremities, fall or loss of consciousness. Patient is concerned about possibility of getting COVID-19 stating that 10 members of her baptism have in the past few months after mary COVID- 19. She reports that her shortness of breath has improved a little bit after she was given breathing treatment at the ED. On arrival at the emergency department patient was found to be saturating in the lower 80s which improved to 89 to 92% after she was placed on BiPAP. Past Medical History Cardiac Medical History: Reports: Congestive Heart Failure, Hyperlipidema, Hypertension Denies: Atrial Fibrillation, DVT, Pulmonary Embolism Pulmonary Medical History: Reports: Chronic Obstructive Pulmonary Disease (COPD), Respiratory Failure - Chronic respiratory failure on home O2 at 2 L/min via nasal cannula Denies: Asthma, Tuberculosis Neurological Medical History: Denies: Seizures Endocrine Medical History: Reports: Diabetes Mellitus Type 2 Denies: Diabetes Mellitus Type 1, Hyperthyroidism, Hypothyroidism Malignancy Medical History: Reports: Breast Cancer - Status post left mastectomy GI Medical History: Reports: Gastroesophageal Reflux Disease Denies: Cirrhosis, Crohn's Disease, Hepatitis, Ulcerative Colitis Musculoskeltal Medical History: Reports: Arthritis, Gout Skin Medical History: Denies: Eczema, Psoriasis Psychiatric Medical History: Reports: Bipolar Disorder, Depression Hematology: Reports: Anemia Denies: Bleeding Tendencies Past Surgical History Past Surgical History: Reports: Cholecystectomy, Mastectomy - Left Denies: Pacemaker Social History Information Source: Patient Lives with: Family Smoking Status: Former Smoker Electronic Cigarette use?: No Frequency of Alcohol Use: None Hx Recreational Drug Use: No Drugs: None Hx Prescription Drug Abuse: No - Advance Directive Resuscitation Status: Full Code Family History Family History: Reviewed & Not Pertinent, DM, Other - Kidney disease Parental Family History Reviewed: Yes Children Family History Reviewed: Yes Sibling(s) Family History Reviewed.: Yes Medication/Allergy Home Medications: Albuterol Sulfate [Proair HFA Inhalation Aerosol 8.5 gm MDI] 2 puff IH Q6HP PRN 12/16/18 Allopurinol [Zyloprim 300 mg Tablet] 300 mg PO DAILY 12/16/18 Aspirin [Ecotrin 81 mg EC Tablet] 81 mg PO DAILY 12/16/18 Atorvastatin Calcium [Lipitor 40 mg Tablet] 40 mg PO QHS 12/16/18 Cholestyramine (with Sugar) [Cholestyramine Packet] 4 gm PO BID 12/16/18 Isosorbide Mononitrate [Imdur 30 mg Tablet.er] 30 mg PO DAILY 12/16/18 Metformin HCl [Glucophage 500 mg Tablet] 500 mg PO Q12 12/16/18 Metoprolol Tartrate [Lopressor 25 mg Tablet] 25 mg PO Q12 12/16/18 Omeprazole 20 mg PO Q12 12/16/18 Quetiapine Fumarate [Seroquel] 50 mg PO QPM 12/16/18 Tiotropium [place] [Spiriva Handihaler 5 Cap/Kit (18 Mcg/Cap)] 1 inh IH DAILY 12/16/18 Clobetasol Propionate 1 applic TOP BID 07/09/19 Ferrous Sulfate [Feosol 325 mg Tablet] 325 mg PO DAILY 07/09/19 Folic Acid [Folvite 1 mg Tablet] 1 mg PO DAILY 07/09/19 Multivitamin [Tab-A-Janette (Multiple Vitamin) Tablet] 1 tab PO DAILY 07/09/19 Amlodipine Besylate [Norvasc 5 mg Tablet] 5 mg PO DAILY 30 Days #30 tablet 07/11/19 Cephalexin Monohydrate [Keflex 500 mg Capsule] 500 mg PO TID 4 Days #12 capsule 07/11/19 Furosemide [Lasix 40 mg Tablet] 40 mg PO QAM 30 Days #30 tablet 07/11/19 Lisinopril [Zestril] 40 mg PO DAILY 30 Days #30 tablet 07/11/19 Prednisone [Deltasone 20 mg Tablet] 20 mg PO DAILY 4 Days #8 tablet 07/11/19 Allergies/Adverse Reactions: Penicillins Adverse Reaction (Verified 12/16/18 13:48) Hallucinations Review of Systems Constitutional: PRESENT: as per HPI Eyes: ABSENT: visual disturbances Ears: ABSENT: hearing changes Nose, Mouth, and Throat: ABSENT: as per HPI, headache(s), mouth pain, sore throat, vertigo, other Cardiovascular: PRESENT: as per HPI Respiratory: PRESENT: as per HPI Gastrointestinal: ABSENT: abdominal pain, constipation, diarrhea, hematemesis, hematochezia, nausea, vomiting Genitourinary: ABSENT: dysuria, hematuria Integumentary: ABSENT: rash, wounds Neurological: ABSENT: abnormal speech, confusion, focal weakness, syncope Psychiatric: ABSENT: anxiety, depression, homidical ideation, suicidal ideation Endocrine: ABSENT: cold intolerance, heat intolerance, polydipsia, polyuria Hematologic/Lymphatic: ABSENT: easy bleeding, easy bruising Physical Exam Vital Signs: Temp Pulse Resp BP Pulse Ox 99.0 F 16 176/148 H 90 L 02/28/20 15:08 02/28/20 20:01 02/28/20 20:01 02/28/20 20:01 Intake & Output 02/27/20 02/28/20 02/29/20 06:59 06:59 06:59 Output Total 720 Balance -720 Weight 113.6 kg Additional comments: GENERAL APPEARANCE: Alert and oriented x3, breathing comfortably on a BiPAP HEENT: Normocephalic and atraumatic. No scleral icterus. NECK: Supple. No lymphadenopathy or tenderness. No carotid bruit. No JVD CHEST: Symmetric. Nontender to palpation. LUNGS: Has distantly heard fine bibasilar crackles. No wheezing appreciated HEART: Regular rate and rhythm with normal S1 and S2. Systolic murmur best heard at fourth left intercostal space ABDOMEN: soft, active bowel sounds, no direct or rebound tenderness. No organomegaly detected. No CVA tenderness EXTREMITIES: Has trace pitting bilateral pedal edema MUSCULOSKELETAL: No deformity, atrophy or swelling noted PSYCHIATRIC: Recent and remote memory is intact. Appropriate mood and affect. SKIN: Warm, dry, and well perfused. No lesions or rashes are noted. NEUROLOGIC: No focal sensory or motor deficits are noted. Results Laboratory Results: 02/28/20 15:15 02/28/20 15:15 02/28/20 02/28/20 02/28/20 15:15 15:15 16:30 WBC 8.2 RBC 3.24 L Hgb 8.9 L Hct 28.0 L MCV 86 MCH 27.4 MCHC 31.7 L RDW 18.7 H Plt Count 212 Seg Neutrophils % 60.6 Carbonic Acid 1.75 H HCO3/H2CO3 Ratio 15:1 ABG pH 7.29 L ABG pCO2 58.1 H ABG pO2 35.9 L* ABG HCO3 27.1 H ABG O2 Saturation 60.7 L ABG Base Excess -0.1 FiO2 30% Sodium 140.3 Potassium 4.6 Chloride 104 Carbon Dioxide 26 Anion Gap 10 BUN 17 Creatinine 0.68 Est GFR ( Amer) > 60 Glucose 113 H Calcium 9.2 Magnesium 1.5 L Total Bilirubin 0.5 AST 19 Alkaline Phosphatase 94 Total Protein 7.1 Albumin 3.9 Urine Color Urine Appearance Urine pH Ur Specific North Urine Protein Urine Glucose (UA) Urine Ketones Urine Blood Urine Nitrite Ur Leukocyte Esterase Urine WBC (Auto) Urine RBC (Auto) 02/28/20 16:41 WBC RBC Hgb Hct MCV MCH MCHC RDW Plt Count Seg Neutrophils % Carbonic Acid HCO3/H2CO3 Ratio ABG pH ABG pCO2 ABG pO2 ABG HCO3 ABG O2 Saturation ABG Base Excess FiO2 Sodium Potassium Chloride Carbon Dioxide Anion Gap BUN Creatinine Est GFR ( Amer) Glucose Calcium Magnesium Total Bilirubin AST Alkaline Phosphatase Total Protein Albumin Urine Color YELLOW Urine Appearance CLEAR Urine pH 5.0 Ur Specific North 1.015 Urine Protein 30 H Urine Glucose (UA) NEGATIVE Urine Ketones NEGATIVE Urine Blood NEGATIVE Urine Nitrite NEGATIVE Ur Leukocyte Esterase TRACE H Urine WBC (Auto) 13 Urine RBC (Auto) 1 02/28/20 02/28/20 15:15 15:15 Creatine Kinase < 20 L Troponin I < 0.012 NT-Pro-B Natriuret Pep 1130 H Impressions: Chest X-Ray 02/28/20 15:53 IMPRESSION: Cardiomegaly. Vascular congestion and interstitial edema. Small bilateral pleural effusions. Diffuse bilateral airspace opacities, may be secondary to pneumonia and/or pulmonary edema. Assessment and Plan - Diagnosis (1) Acute on chronic respiratory failure with hypoxia and hypercapnia Is this a current diagnosis for this admission?: Yes Plan: Patient presents with acute onset shortness of breath Oxygen saturation was around lower 80s on presentation at the ED ABG showed PaO2 of 35% D-dimer was elevated and CTA will be obtained Currently patient is on BiPAP Oxygen saturation has improved to lower 90s Continue treating underlying causes which are COPD exacerbation and acute on chronic diastolic heart failure Closely monitor respiratory parameters, repeat ABG (2) Acute on chronic diastolic heart failure Is this a current diagnosis for this admission?: Yes Plan: Patient has shortness of breath, orthopnea and leg swelling BNP was elevated at 1130 Echocardiography done 2017 showed normal EF with grade 2 diastolic dysfunction and moderate aortic stenosis Chest x-ray shows cardiomegaly with interstitial edema Started her on IV Lasix Strict I&O's, daily weight and fluid restriction Currently on BiPAP (3) COPD with acute exacerbation Is this a current diagnosis for this admission?: Yes Plan: Patient has COPD and is dependent on home oxygen 3 L/min On presentation patient was wheezing per ED physician Chest x-ray shows cardiomegaly, interstitial edema Started on steroid, breathing treatment Levaquin 750 mg p.o. daily Currently on BiPAP and is saturating well (4) Suspected COVID-19 virus infection Is this a current diagnosis for this admission?: Yes Plan: Patient presents with symptoms concerning for COVID-19 She reports that she might have contact history at her local [facility] Obtain COVID-19 test, placed her on special airborne isolation Continue supportive care (5) Hypomagnesemia Is this a current diagnosis for this admission?: Yes Plan: Serum magnesium level was 1.5 Replete with magnesium sulfate and monitor serum magnesium level (6) Hypertension Qualifiers: Hypertension type: essential hypertension Qualified Code(s): I10 - Essential (primary) hypertension Is this a current diagnosis for this admission?: Yes Plan: Blood pressure currently at target Continue home medications (7) Type 2 diabetes mellitus Qualifiers: Diabetes mellitus complication status: with hyperglycemia Is this a current diagnosis for this admission?: Yes Plan: Will hold Metformin for now Sliding scale, Accu-Chek, hypoglycemia protocol (8) Obesity Qualifiers: Body mass index: BMI 36.0-36.9 Is this a current diagnosis for this admission?: Yes (9) Aortic stenosis Is this a current diagnosis for this admission?: Yes Plan: Patient has a grade 2 systolic ejection murmur at left fourth intercostal space 2D echo in 2017 showed moderate aortic stenosis Will consider repeat echo while inpatient Continue follow-up with cardiology - Time Time Spent with patient: 35 or more minutes Total Critical Time (Minutes): 50 Medications reviewed and adjusted accordingly: Yes Anticipated Discharge Disposition: Home, Self Care Anticipated Discharge Timeframe: within 72 hours - Inpatient Certification Based on my medical assessment, after consideration of the patient's comorbidities, presenting symptoms, or acuity I expect that the services needed warrant INPATIENT care.: Yes I certify that my determination is in accordance with my understanding of Medicare's requirements for reasonable and necessary INPATIENT services [42 CFR 412.3e].: Yes Medical Necessity: Significant Comorbidiites Make Outpatient Treatment Too Risky, Need Close Monitoring Due to Risk of Patient Decompensation, Need For Continuous Telemetry Monitoring, Need for Nebulizer Therapy and Monitoring of Response Post Hospital Care: D/C or Transfer Summary
[2020-02-28] MEDS ORDERED: PREDNISONE 20 MG TABLET PO SCH (21:15)
[2020-02-28] MEDS: ATORVASTATIN CALCIUM 40 MG TABLET PO SCH (23:11)
[2020-02-28] MEDS: METOPROLOL TARTRATE 25 MG TABLET PO SCH (23:11)
[2020-02-28] MEDS: FUROSEMIDE INJ/PF 40 MG/4 ML SDV IV SCH (23:12)
[2020-02-29] MEDS ORDERED: DEXTROSE 40% GEL 15 GM TUBE PO PRN ×2 (00:28)
[2020-02-29] MEDS ORDERED: DEXTROSE 50%-WATER 25 GM/50 ML DISP.SYRIN IV PRN ×2 (00:28)
[2020-02-29] MEDS ORDERED: GLUCAGON,HUMAN RECOMB 1 MG INJ IM PRN (00:28)
--- NOTE | 2020-02-29 00:28 | RADIOLOGY REPORT (SQ) ---
CT angiogram chest with contrast on 02/28/2020 at 11:39 PM CLINICAL INDICATION: Shortness of breath, elevated d-dimer TECHNIQUE: Multiple axial images are obtained throughout the chest following the administration of IV contrast. Computer generated 3D reconstructions/MIPS were performed. This exam was performed according to our departmental dose-optimization program, which includes automated exposure control, adjustment of the mA and/or kV according to patient size and/or use of iterative reconstruction technique. Total DLP is 746.37 mGy*cm. 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 Would recommend follow-up thyroid ultrasound unless the patient has limited life expectancy as below . This was also recommended on the previous exam and please correlate if this has already been performed or not. There is no thoracic aortic aneurysm or dissection. Coronary artery calcifications and other vascular calcifications are noted. Limited visualized upper abdomen is unremarkable. There are small bilateral pleural effusions. Mild cardiomegaly is noted. Likely reactive borderline size mediastinal lymph nodes are noted. There is mild bilateral lower lung atelectasis adjacent to the pleural effusions. There are no filling defects within the pulmonary arteries to suggest a pulmonary embolus. Breathing motion limits the exam. There are bilateral groundglass opacities with septal thickening most consistent with edema, atypical infection is felt less likely. Degenerative changes are noted in the spine. IMPRESSION: 1. Cardiomegaly with bilateral pleural effusions and bilateral groundglass opacities and septal thickening most consistent with changes of CHF. Imaging features can be seen with viral pneumonia, though are nonspecific and can occur with a variety of infectious and noninfectious processes. [PneInd] Reference: https://pubs.rsna.org/doi/full/10.1148/ryct.[email or web address] 2. No evidence of pulmonary embolus. 3. Heterogeneous thyroid goiter which typically would warrant follow-up thyroid ultrasound although in this age patient please correlate clinically as to whether or not this is warranted or not as below. Recommendations for f/u of Incidental Thyroid Nodules (ITN) found on CT, MRI, NM and Extrathyroidal US based on the ACR white paper and [place] 3-tiered system for managing ITNs: 1. Further evaluation by thyroid US recommended for: o Solitary ITN with high risk imaging features (locally invasive nodule or suspicious lymph nodes) o Solitary ITN of any size in pediatric patients <= 18 years of age o Solitary ITN >= 1 cm in axial plane in patients > 18 and < 35 years of age o Solitary ITN >= 1.5 cm in axial plane in patients >= 35 years of age o Heterogeneous enlarged thyroid gland o ITN avid on FDG-PET or other nuclear medicine (MIBI and octreotide) scans. FNA biopsy is also recommended for PET avid nodules. 2. For multiple thyroid nodules, the above recommendations for solitary ITN are to be applied to the largest nodule. 3. No US or f/u recommended for ITNs without high risk features in patients with limited life expectancy or significant co-morbidities, unless clinically warranted. 4. These recommendations do not apply to patients with increased risk for thyroid cancer or to patients with symptomatic thyroid disease.
[2020-02-29] MEDS ORDERED: MAGNESIUM OXIDE 400 MG TABLET PO ONE (00:32)
[2020-02-29] MEDS ORDERED: LEVOFLOXACIN 750 MG TABLET PO SCH (01:00)
[2020-02-29 06:16] LABS: ANION GAP 10 (5-19); BLOOD UREA NITROGEN 20 mg/dL (7-20); CALCIUM 9.4 mg/dL (8.4-10.2); CARBON DIOXIDE 30 mmol/L (22-30); CHLORIDE 100 mmol/L (98-107); GLUCOSE 140 mg/dL (75-110); POTASSIUM 5.1 mmol/L (3.6-5.0)
[2020-02-29 06:46] LABS: ARTERIAL BLOOD BASE EXCESS 4.1 mmol/L; ARTERIAL BLOOD H2CO3 1.64 mmol/L (1.05-1.35); ARTERIAL BLOOD HCO3 30.4 mmol/L (20-24); ARTERIAL BLOOD O2 SATURATION 95.5 % (94-98); ARTERIAL BLOOD PCO2 54.6 mmHg (35-45); ARTERIAL BLOOD PH 7.36 (7.35-7.45); ARTERIAL BLOOD PO2 82.1 mmHg (80-100)
[2020-02-29 06:50] LABS: ARTERIAL BLOOD FIO2 45%
[2020-02-29] MEDS ORDERED: AZITHROMYCIN 250 MG TABLET PO ONE ×2 (09:00→12:30)
[2020-02-29 09:36] LABS: HEMATOCRIT 27.9 % (36.0-47.0); MEAN CORPUSCULAR HGB CONC 32.2 g/dL (32.0-36.0); MEAN CORPUSCULAR VOLUME 84 fl (80-97); PLATELET COUNT 238 10^3/uL (150-450); RED BLOOD COUNT 3.33 10^6/uL (3.72-5.28); RED CELL DISTRIBUTION WIDTH 18.5 % (11.5-14.0)
[2020-02-29 09:57] LABS: C-REACTIVE PROTEIN 19.4 mg/L (<10.0)
[2020-02-29] MEDS ORDERED: DEXAMETHASONE SOD PHOS INJ 10 MG/1 ML VIAL IV SCH (10:00)
[2020-02-29] MEDS: INSULIN REG, HUMAN 100 UNIT/ML 3 ML VIAL (PYX) SUBCUT SCH ×4 (10:47→21:20)
[2020-02-29] MEDS: ASCORBIC ACID 500 MG TABLET PO SCH ×2 (11:06→17:55)
[2020-02-29] MEDS: ENOXAPARIN SODIUM INJ 40 MG/0.4 ML DISP.SYRIN SUBCUT SCH (11:06)
[2020-02-29] MEDS: CHOLECALCIFEROL (D3) 1,000 UNIT (25 MCG) TABLET PO SCH (11:07)
[2020-02-29] MEDS: FUROSEMIDE INJ/PF 40 MG/4 ML SDV IV SCH ×2 (11:07→21:18)
[2020-02-29] MEDS: METOPROLOL TARTRATE 25 MG TABLET PO SCH ×2 (11:07→21:18)
[2020-02-29] MEDS: ISOSORBIDE MONONITRATE 30 MG TAB.ER.24H PO SCH (11:08)
[2020-02-29] MEDS: ZINC SULFATE 220 MG CAPSULE PO SCH (11:08)
[2020-02-29] MEDS: ASPIRIN 81 MG TABLET, CHEWABLE PO SCH (11:08)
[2020-02-29] MEDS: FERROUS SULFATE 325 MG TABLET PO SCH (11:08)
[2020-02-29] MEDS: ACETAMINOPHEN 325 MG TABLET PO PRN (12:01)
[2020-02-29] MEDS ORDERED: ALBUTEROL SULFATE 0.083% NEB 2.5 MG/3 ML AMPUL NEB PRN (15:33)
[2020-02-29] MEDS ORDERED: GUAIFENESIN SYRP 200 MG/10 ML UDC PO PRN (15:48)
--- NOTE | 2020-02-29 15:58 | PDOC PROGRESS REPORT ---
Subjective Progress Note for:: 02/29/20 Subjective:: Patient is an 84-year-old female with past medical history of diastolic CHF, COPD on home O2, DM 2, hypertension arthritis, bipolar disorder, depression who was admitted 02/28/2020 with Acute respiratory failure with hypoxia and hypercapnia secondary to acute on chronic diastolic heart failure and COPD exacerbation. Patient was seen on afternoon rounds. She was found resting in bed, comfortably, on BiPAP. She has been on BiPAP for several hours and asked to have a break. She does not use BiPAP or CPAP at home but does wear continue with supplemental oxygen. She reports continued dyspnea though overall improved as compared to yesterday. She denies fever, chills, chest pain, palpitations, orthopnea, abdominal pain, nausea vomiting and diarrhea. She has no other questions or concerns at this time. No concerns per nursing. Reason For Visit: COPD EXACERBATION, ACUTE DECOMPENSATED HEART Physical Exam Vital Signs: Temp Pulse Resp BP Pulse Ox 98.1 F 76 16 101/67 98 02/29/20 12:03 02/29/20 12:03 02/29/20 12:03 02/29/20 12:03 02/29/20 12:03 Intake & Output 02/28/20 02/29/20 03/01/20 06:59 06:59 06:59 Output Total 1820 Balance -1820 Weight 113 kg General appearance: PRESENT: no acute distress, cooperative, obese, well- developed, well-nourished Head exam: PRESENT: atraumatic, normocephalic Eye exam: PRESENT: conjunctiva pink, EOMI, PERRLA. ABSENT: scleral icterus Mouth exam: PRESENT: moist, tongue midline Respiratory exam: PRESENT: prolonged expiratory phas, symmetrical, unlabored, wh eezes, other - BiPAP. ABSENT: rales, rhonchi Cardiovascular exam: PRESENT: RRR. ABSENT: diastolic murmur, rubs, systolic murmur Vascular exam: PRESENT: normal capillary refill Extremities exam: PRESENT: full ROM, pedal edema - trace bilaterally. ABSENT: calf tenderness, clubbing Neurological exam: PRESENT: alert, awake, oriented to person, oriented to place, oriented to time, oriented to situation, CN II-XII grossly intact. ABSENT: motor sensory deficit Psychiatric exam: PRESENT: appropriate affect, normal mood. ABSENT: homicidal ideation, suicidal ideation Skin exam: PRESENT: dry, intact, warm. ABSENT: cyanosis, rash Results Laboratory Results: 02/29/20 09:00 02/29/20 05:40 02/28/20 02/28/20 02/28/20 15:15 15:15 16:30 WBC 8.2 RBC 3.24 L Hgb 8.9 L Hct 28.0 L MCV 86 MCH 27.4 MCHC 31.7 L RDW 18.7 H Plt Count 212 Seg Neutrophils % 60.6 Carbonic Acid 1.75 H HCO3/H2CO3 Ratio 15:1 ABG pH 7.29 L ABG pCO2 58.1 H ABG pO2 35.9 L* ABG HCO3 27.1 H ABG O2 Saturation 60.7 L ABG Base Excess -0.1 FiO2 30% Sodium 140.3 Potassium 4.6 Chloride 104 Carbon Dioxide 26 Anion Gap 10 BUN 17 Creatinine 0.68 Est GFR ( Amer) > 60 Glucose 113 H Calcium 9.2 Magnesium 1.5 L Ferritin Total Bilirubin 0.5 AST 19 Alkaline Phosphatase 94 C-Reactive Protein Total Protein 7.1 Albumin 3.9 Urine Color Urine Appearance Urine pH Ur Specific [place] Urine Protein Urine Glucose (UA) Urine Ketones Urine Blood Urine Nitrite Ur Leukocyte Esterase Urine WBC (Auto) Urine RBC (Auto) 02/28/20 02/29/20 02/29/20 16:41 05:40 06:20 WBC RBC Hgb Hct MCV MCH MCHC RDW Plt Count Seg Neutrophils % Carbonic Acid 1.64 H HCO3/H2CO3 Ratio 18:1 ABG pH 7.36 ABG pCO2 54.6 H ABG pO2 82.1 ABG HCO3 30.4 H ABG O2 Saturation 95.5 ABG Base Excess 4.1 FiO2 45% Sodium 139.5 Potassium 5.1 H Chloride 100 Carbon Dioxide 30 Anion Gap 10 BUN 20 Creatinine 0.78 Est GFR ( Amer) > 60 Glucose 140 H Calcium 9.4 Magnesium 1.5 L Ferritin Total Bilirubin AST Alkaline Phosphatase C-Reactive Protein Total Protein Albumin Urine Color YELLOW Urine Appearance CLEAR Urine pH 5.0 Ur Specific [place] 1.015 Urine Protein 30 H Urine Glucose (UA) NEGATIVE Urine Ketones NEGATIVE Urine Blood NEGATIVE Urine Nitrite NEGATIVE Ur Leukocyte Esterase TRACE H Urine WBC (Auto) 13 Urine RBC (Auto) 1 02/29/20 02/29/20 09:00 09:00 WBC 6.0 RBC 3.33 L Hgb 9.0 L Hct 27.9 L MCV 84 MCH 27.0 MCHC 32.2 RDW 18.5 H Plt Count 238 Seg Neutrophils % Carbonic Acid HCO3/H2CO3 Ratio ABG pH ABG pCO2 ABG pO2 ABG HCO3 ABG O2 Saturation ABG Base Excess FiO2 Sodium Potassium Chloride Carbon Dioxide Anion Gap BUN Creatinine Est GFR ( Amer) Glucose Calcium Magnesium Ferritin 62.00 Total Bilirubin AST Alkaline Phosphatase C-Reactive Protein 19.4 H Total Protein Albumin Urine Color Urine Appearance Urine pH Ur Specific [place] Urine Protein Urine Glucose (UA) Urine Ketones Urine Blood Urine Nitrite Ur Leukocyte Esterase Urine WBC (Auto) Urine RBC (Auto) 02/28/20 02/28/20 15:15 15:15 Creatine Kinase < 20 L Troponin I < 0.012 NT-Pro-B Natriuret Pep 1130 H Impressions: Chest X-Ray 02/28/20 15:53 IMPRESSION: Cardiomegaly. Vascular congestion and interstitial edema. Small bilateral pleural effusions. Diffuse bilateral airspace opacities, may be secondary to pneumonia and/or pulmonary edema. Chest/Abdomen CTA 02/28/20 21:14 IMPRESSION: 1. Cardiomegaly with bilateral pleural effusions and bilateral groundglass opacities and septal thickening most consistent with changes of CHF. Imaging features can be seen with viral pneumonia, though are nonspecific and can occur with a variety of infectious and noninfectious processes. [PneInd] Reference: https://pubs.rsna.org/doi/full/10.1148/ryct.1128594515 2. No evidence of pulmonary embolus. 3. Heterogeneous thyroid goiter which typically would warrant follow-up thyroid ultrasound although in this age patient please correlate clinically as to whether or not this is warranted or not as below. Recommendations for f/u of Incidental Thyroid Nodules (ITN) found on CT, MRI, NM and Extrathyroidal US based on the ACR white paper and Vaughn 3-tiered system for managing ITNs: 1. Further evaluation by thyroid US recommended for: o Solitary ITN with high risk imaging features (locally invasive nodule or suspicious lymph nodes) o Solitary ITN of any size in pediatric patients <= 18 years of age o Solitary ITN >= 1 cm in axial plane in patients > 18 and < 35 years of age o Solitary ITN >= 1.5 cm in axial plane in patients >= 35 years of age o Heterogeneous enlarged thyroid gland o ITN avid on FDG-PET or other nuclear medicine (MIBI and octreotide) scans. FNA biopsy is also recommended for PET avid nodules. 2. For multiple thyroid nodules, the above recommendations for solitary ITN are to be applied to the largest nodule. 3. No US or f/u recommended for ITNs without high risk features in patients with limited life expectancy or significant co-morbidities, unless clinically warranted. 4. These recommendations do not apply to patients with increased risk for thyroid cancer or to patients with symptomatic thyroid disease. Assessment and Plan - Diagnosis (1) COPD with acute exacerbation Is this a current diagnosis for this admission?: Yes Plan: Patient has COPD and is dependent on home oxygen 3 L/min On presentation patient was wheezing per ED physician Chest x-ray shows cardiomegaly, interstitial edema Patient is admitted to the medical floor on continuous cardiac telemetry. Will provide supplemental oxygen and BiPAP as needed to maintain saturations greater than 89%. Start on scheduled and as needed nebulizer treatments. Provide IV Solu-Medrol. Mucinex twice daily. Robitussin as needed. (2) Acute on chronic diastolic heart failure Is this a current diagnosis for this admission?: Yes Plan: Patient has shortness of breath, orthopnea and leg swelling BNP was elevated at 1130 Echocardiography done 2017 showed normal EF with grade 2 diastolic dysfunction and moderate aortic stenosis Chest x-ray shows cardiomegaly with interstitial edema Supplemental oxygen and BiPAP as needed to maintain saturations >89% Patient is placed on daily statin and aspirin therapy. We will continue her home dose antihypertensives with metoprolol, and amlodipine Lower dose lisinopril. Home dose isosorbide. Diurese with IV furosemide. Cardiac diet. Fluid restricted. Daily weights, strict I&O's. (3) Acute on chronic respiratory failure with hypoxia and hypercapnia Is this a current diagnosis for this admission?: Yes Plan: Secondary to #1 & 2 Patient presents with acute onset shortness of breath Oxygen saturation was around lower 80s on presentation at the ED ABG s are improved following BiPAP. Now w/ compensated respiratory acidosis. CTA chest revealed cardiomegaly with bilateral pleural effusions and bilateral groundglass opacities. Evaluation and management as above. (4) Suspected COVID-19 virus infection Is this a current diagnosis for this admission?: Yes Plan: Patient presents with symptoms concerning for COVID-19 She reports that she might have contact history at her local [employer] Obtain COVID-19 test Ferritin 62, LDH 164, CRP 19.4 Placed her on special airborne isolation Continue supportive care (5) Aortic stenosis Is this a current diagnosis for this admission?: Yes Plan: Patient has a grade 2 systolic ejection murmur at left fourth intercostal space 2D echo in 2017 showed moderate aortic stenosis Will consider repeat echo while inpatient Outpatient follow-up with cardiology Avoid rapid fluid volume changes. (6) Hypertension Qualifiers: Hypertension type: essential hypertension Qualified Code(s): I10 - Essential (primary) hypertension Is this a current diagnosis for this admission?: Yes Plan: Blood pressure currently at target Continue home medications (7) Hypomagnesemia Is this a current diagnosis for this admission?: Yes Plan: Oral replacement. Follow up labs (8) Type 2 diabetes mellitus Qualifiers: Diabetes mellitus complication status: with hyperglycemia Is this a current diagnosis for this admission?: Yes Plan: Holding oral medications while admitted. We will check A1c with a.m. lab work. Patient is placed on a consistent carb diet. Accu-Cheks before meals and at bedtime with Humalog for sliding scale coverage. Hypoglycemia protocol in place. (9) Obesity Qualifiers: Body mass index: BMI 36.0-36.9 Is this a current diagnosis for this admission?: Yes Plan: Dietary discretion and lifestyle modification is advised. (10) Anemia Qualifiers: Anemia type: unspecified type Qualified Code(s): D64.9 - Anemia, unspecified Is this a current diagnosis for this admission?: Yes Plan: Hemoglobin 8.9. We will check anemia panel with a.m. lab work. - Time Time Spent with patient: 25-34 minutes Medications reviewed and adjusted accordingly: Yes Anticipated Discharge Disposition: Home with Home Health Anticipated Discharge Timeframe: undetermined
--- NOTE | 2020-02-29 18:04 | EKG REPORT ---
SEVERITY:- ABNORMAL ECG - SINUS RHYTHM LVH WITH SECONDARY REPOLARIZATION ABNORMALITY : Confirmed by: Luis Enrique Clements MD 29-Feb-2020 18:03:41
[2020-02-29] MEDS: IPRATROPIUM/ALBUTEROL 0.5-2.5 MG/3 ML AMPUL NEB SCH (20:35)
[2020-02-29] MEDS: GUAIFENESIN 600 MG TABLET.SA PO SCH (21:17)
[2020-02-29] MEDS: MELATONIN 3 MG TABLET PO SCH (21:18)
[2020-02-29] MEDS: METHYLPREDNISOLONE INJ 40 MG/1 ML SDV IV SCH (21:19)
[2020-02-29] MEDS: ATORVASTATIN CALCIUM 40 MG TABLET PO SCH (21:19)
[2020-03-01] MEDS: METHYLPREDNISOLONE INJ 40 MG/1 ML SDV IV SCH ×3 (05:26→21:52)
[2020-03-01 07:01] LABS: ABSOLUTE RETICS # 0.081 10^6/uL (0.028-0.122); HEMATOCRIT 26.5 % (36.0-47.0); HEMOGLOBIN 8.5 g/dL (12.0-15.5); MEAN CORPUSCULAR HGB CONC 32.1 g/dL (32.0-36.0); MEAN CORPUSCULAR VOLUME 84 fl (80-97); PLATELET COUNT 231 10^3/uL (150-450); RED BLOOD COUNT 3.15 10^6/uL (3.72-5.28); RED CELL DISTRIBUTION WIDTH 18.4 % (11.5-14.0); RETICULOCYTE COUNT (AUTO) 2.55 % (0.66-2.85); WHITE BLOOD COUNT 7.5 10^3/uL (4.0-10.5)
[2020-03-01 07:38] LABS: ANION GAP 9 (5-19); BLOOD UREA NITROGEN 34 mg/dL (7-20); CALCIUM 9.5 mg/dL (8.4-10.2); CARBON DIOXIDE 33 mmol/L (22-30); CHLORIDE 96 mmol/L (98-107); GLUCOSE 150 mg/dL (75-110); IRON(TIBC) 23.8 ug/dL (37-170); POTASSIUM 4.8 mmol/L (3.6-5.0)
[2020-03-01] MEDS: INSULIN REG, HUMAN 100 UNIT/ML 3 ML VIAL (PYX) SUBCUT SCH ×4 (08:03→21:53)
[2020-03-01 08:56] LABS: FOLATE > 20.00 ng/mL (>2.76)
[2020-03-01] MEDS: IPRATROPIUM/ALBUTEROL 0.5-2.5 MG/3 ML AMPUL NEB SCH ×2 (09:28→20:56)
[2020-03-01] MEDS ORDERED: LISINOPRIL 5 MG TABLET PO SCH (10:00)
--- NOTE | 2020-03-01 10:17 | PDOC PROGRESS REPORT ---
Subjective Date:: 03/01/20 Subjective:: Patient is an 84-year-old female with past medical history of diastolic CHF, COPD on home O2, DM 2, hypertension arthritis, bipolar disorder, depression who was admitted 02/28/2020 with Acute respiratory failure with hypoxia and hypercapnia secondary to acute on chronic diastolic heart failure and COPD exacerbation. Patient was seen on morning rounds. She was found resting in bed, comfortably, on her baseline oxygen requirement. She reports that she wore BiPAP overnight and is feeling much better today. She is very gregarious, makes lots of jokes, and talks nonstop. She is having occasional nonproductive cough but otherwise has no complaints today. She denies fever, chills, chest pain, palpitations, orthopnea, abdominal pain, nausea vomiting and diarrhea. She has no other questions or concerns at this time. No concerns per nursing. Reason For Visit: COPD EXACERBATION, ACUTE DECOMPENSATED HEART Physical Exam Vital Signs: Temp Pulse Resp BP Pulse Ox 97.7 F 62 22 H 160/49 H 92 03/01/20 07:35 03/01/20 07:35 03/01/20 07:35 03/01/20 07:35 03/01/20 07:35 Intake & Output 02/29/20 03/01/20 03/02/20 06:59 06:59 06:59 Intake Total 942 Output Total 1820 2225 Balance -1820 -1283 Weight 113 kg 90.4 kg General appearance: PRESENT: no acute distress, cooperative - Pleasant, obese, well-developed, well-nourished Head exam: PRESENT: atraumatic, normocephalic Eye exam: PRESENT: conjunctiva pink, EOMI, PERRLA. ABSENT: scleral icterus Mouth exam: PRESENT: moist, tongue midline Respiratory exam: PRESENT: clear to auscultation choco, prolonged expiratory phas, symmetrical, unlabored, other - Supplemental oxygen. ABSENT: rales, rhonchi, wheezes Cardiovascular exam: PRESENT: RRR. ABSENT: diastolic murmur, rubs, systolic murmur Vascular exam: PRESENT: normal capillary refill GI/Abdominal exam: PRESENT: normal bowel sounds, soft. ABSENT: distended, guarding, mass, organolmegaly, rebound, tenderness Rectal exam: PRESENT: deferred Gentrourinary exam: PRESENT: indwelling catheter Extremities exam: PRESENT: full ROM. ABSENT: calf tenderness, clubbing, pedal edema Neurological exam: PRESENT: alert, awake, oriented to person, oriented to place, oriented to time, oriented to situation, CN II-XII grossly intact. ABSENT: motor sensory deficit Psychiatric exam: PRESENT: appropriate affect, normal mood. ABSENT: homicidal ideation, suicidal ideation Skin exam: PRESENT: dry, intact, warm. ABSENT: cyanosis, rash Results Laboratory Results: 03/01/20 06:40 03/01/20 06:40 02/29/20 03/01/20 03/01/20 09:00 06:40 06:40 WBC 7.5 RBC 3.15 L Hgb 8.5 L Hct 26.5 L MCV 84 MCH 27.0 MCHC 32.1 RDW 18.4 H Plt Count 231 Retic Count (auto) 2.55 Sodium 137.5 Potassium 4.8 Chloride 96 L Carbon Dioxide 33 H Anion Gap 9 BUN 34 H Creatinine 0.93 Est GFR ( Amer) > 60 Glucose 150 H Calcium 9.5 Iron 23.8 L TIBC 406 % Saturation 6 Ferritin 62.00 62.60 C-Reactive Protein 19.4 H Vitamin B12 597.0 Folate > 20.00 02/28/20 16:41 Catheterized Urine Urine Culture - Final Escherichia Coli 02/28/20 02/28/20 15:15 15:15 Creatine Kinase < 20 L Troponin I < 0.012 NT-Pro-B Natriuret Pep 1130 H Impressions: Chest X-Ray 02/28/20 15:53 IMPRESSION: Cardiomegaly. Vascular congestion and interstitial edema. Small bilateral pleural effusions. Diffuse bilateral airspace opacities, may be secondary to pneumonia and/or pulmonary edema. Chest/Abdomen CTA 02/28/20 21:14 IMPRESSION: 1. Cardiomegaly with bilateral pleural effusions and bilateral groundglass opacities and septal thickening most consistent with changes of CHF. Imaging features can be seen with viral pneumonia, though are nonspecific and can occur with a variety of infectious and noninfectious processes. [PneInd] Reference: https://pubs.rsna.org/doi/full/10.1148/ryct.2291724521 2. No evidence of pulmonary embolus. 3. Heterogeneous thyroid goiter which typically would warrant follow-up thyroid ultrasound although in this age patient please correlate clinically as to whether or not this is warranted or not as below. Recommendations for f/u of Incidental Thyroid Nodules (ITN) found on CT, MRI, NM and Extrathyroidal US based on the ACR white paper and Vaughn 3-tiered system for managing ITNs: 1. Further evaluation by thyroid US recommended for: o Solitary ITN with high risk imaging features (locally invasive nodule or suspicious lymph nodes) o Solitary ITN of any size in pediatric patients <= 18 years of age o Solitary ITN >= 1 cm in axial plane in patients > 18 and < 35 years of age o Solitary ITN >= 1.5 cm in axial plane in patients >= 35 years of age o Heterogeneous enlarged thyroid gland o ITN avid on FDG-PET or other nuclear medicine (MIBI and octreotide) scans. FNA biopsy is also recommended for PET avid nodules. 2. For multiple thyroid nodules, the above recommendations for solitary ITN are to be applied to the largest nodule. 3. No US or f/u recommended for ITNs without high risk features in patients with limited life expectancy or significant co-morbidities, unless clinically warranted. 4. These recommendations do not apply to patients with increased risk for thyroid cancer or to patients with symptomatic thyroid disease. Assessment and Plan - Diagnosis (1) COPD with acute exacerbation Is this a current diagnosis for this admission?: Yes Plan: Improved; lung sounds now clear. Patient reports dyspnea at rest has resolved. Does have a slight nonproductive cough. Patient has COPD and is dependent on home oxygen 3 L/min On presentation patient was wheezing per ED physician Chest x-ray shows cardiomegaly, interstitial edema Patient is admitted to the medical floor on continuous cardiac telemetry. Will provide supplemental oxygen and BiPAP as needed to maintain saturations greater than 89%. Start on scheduled and as needed nebulizer treatments. Provide IV Solu-Medrol; decrease dose today. Mucinex twice daily. Robitussin as needed. Pulmonary toilet with incentive spirometer, flutter valve, and ambulation. (2) Acute on chronic diastolic heart failure Is this a current diagnosis for this admission?: Yes Plan: Improved symptoms; no orthopnea, leg edema has resolved. BNP was elevated at 1130 Echocardiography done 2017 showed normal EF with grade 2 diastolic dysfunction and moderate aortic stenosis Chest x-ray shows cardiomegaly with interstitial edema Supplemental oxygen and BiPAP as needed to maintain saturations >89% Patient is placed on daily statin and aspirin therapy. We will continue her home dose antihypertensives with metoprolol, amlodipine, and lisinopril. Home dose isosorbide. Diurese with IV furosemide; decrease dose today. Cardiac diet. Fluid restricted. Daily weights, strict I&O's. (3) Acute on chronic respiratory failure with hypoxia and hypercapnia Is this a current diagnosis for this admission?: Yes Plan: Improving. Secondary to #1 & 2 ABG s are improved following BiPAP. Now w/ compensated respiratory acidosis. CTA chest revealed cardiomegaly with bilateral pleural effusions and bilateral groundglass opacities. Evaluation and management as above. (4) Suspected COVID-19 virus infection Is this a current diagnosis for this admission?: Yes Plan: Ruled out. COVID-19 testing is negative. She reports that she might have contact history at her local [employer] Ferritin 62, LDH 164, CRP 19.4 (5) Aortic stenosis Is this a current diagnosis for this admission?: Yes Plan: Patient has a grade 2 systolic ejection murmur at left fourth intercostal space 2D echo in 2017 showed moderate aortic stenosis Will consider repeat echo while inpatient Outpatient follow-up with cardiology Avoid rapid fluid volume changes. (6) Hypertension Qualifiers: Hypertension type: essential hypertension Qualified Code(s): I10 - Essential (primary) hypertension Is this a current diagnosis for this admission?: Yes Plan: Blood pressure currently at target Continue home medications (7) Hypomagnesemia Is this a current diagnosis for this admission?: Yes Plan: Oral replacement. Follow up labs (8) Type 2 diabetes mellitus Qualifiers: Diabetes mellitus complication status: with hyperglycemia Is this a current diagnosis for this admission?: Yes Plan: Holding oral medications while admitted. We will check A1c with a.m. lab work. Patient is placed on a consistent carb diet. Accu-Cheks before meals and at bedtime with Humalog for sliding scale coverage. Hypoglycemia protocol in place. (9) Obesity Qualifiers: Body mass index: BMI 36.0-36.9 Is this a current diagnosis for this admission?: Yes Plan: Dietary discretion and lifestyle modification is advised. (10) Anemia Qualifiers: Anemia type: unspecified type Qualified Code(s): D64.9 - Anemia, unspecified Is this a current diagnosis for this admission?: Yes Plan: Hemoglobin 8.9. Anemia panel reveals iron deficiency. Continue home dose folic acid. Start multivitamin and ferrous sulfate supplementation. - Time Time Spent with patient: 25-34 minutes Medications reviewed and adjusted accordingly: Yes Anticipated Discharge Disposition: Home with Home Health Anticipated Discharge Timeframe: within 72 hours
[2020-03-01] MEDS: FUROSEMIDE INJ/PF 40 MG/4 ML SDV IV SCH (11:01)
[2020-03-01] MEDS: ASCORBIC ACID 500 MG TABLET PO SCH ×2 (11:04→17:02)
[2020-03-01] MEDS: ZINC SULFATE 220 MG CAPSULE PO SCH (11:04)
[2020-03-01] MEDS: ISOSORBIDE MONONITRATE 30 MG TAB.ER.24H PO SCH (11:04)
[2020-03-01] MEDS: ENOXAPARIN SODIUM INJ 40 MG/0.4 ML DISP.SYRIN SUBCUT SCH (11:04)
[2020-03-01] MEDS: AZITHROMYCIN 250 MG TABLET PO SCH (11:05)
[2020-03-01] MEDS: METOPROLOL TARTRATE 25 MG TABLET PO SCH ×2 (11:05→21:51)
[2020-03-01] MEDS: CHOLECALCIFEROL (D3) 1,000 UNIT (25 MCG) TABLET PO SCH (11:05)
[2020-03-01] MEDS: AMLODIPINE BESYLATE 5 MG TABLET PO SCH (11:05)
[2020-03-01] MEDS: FERROUS SULFATE 325 MG TABLET PO SCH (11:05)
[2020-03-01] MEDS: GUAIFENESIN 600 MG TABLET.SA PO SCH ×2 (11:05→21:50)
[2020-03-01] MEDS: ASPIRIN 81 MG TABLET, CHEWABLE PO SCH (11:06)
[2020-03-01] MEDS: CIPROFLOXACIN HCL 500 MG TABLET PO SCH ×2 (11:06→21:50)
[2020-03-01] MEDS: UMECLIDINIUM BROMIDE 62.5 MCG/DOSE IH SCH (11:06)
[2020-03-01] MEDS: QUETIAPINE FUMARATE 25 MG TABLET PO SCH (17:02)
[2020-03-01] MEDS ORDERED: (PENDING PHARMACY ID) (Quetiapine Fumarate [Seroquel] 50 MG) PO SCH (18:00)
[2020-03-01] MEDS: MELATONIN 3 MG TABLET PO SCH (21:51)
[2020-03-01] MEDS: ATORVASTATIN CALCIUM 40 MG TABLET PO SCH (21:52)
[2020-03-01] MEDS: FUROSEMIDE INJ/PF 20 MG/2 ML SDV IV SCH (21:52)
[2020-03-01] MEDS ORDERED: FUROSEMIDE INJ/PF 40 MG/4 ML SDV IV SCH (22:00)
[2020-03-02] MEDS: METHYLPREDNISOLONE INJ 40 MG/1 ML SDV IV SCH ×3 (06:11→22:18)
[2020-03-02 06:59] LABS: HEMATOCRIT 26.3 % (36.0-47.0); HEMOGLOBIN 8.8 g/dL (12.0-15.5); MEAN CORPUSCULAR HEMOGLOBIN 27.8 pg (27.0-33.4); MEAN CORPUSCULAR HGB CONC 33.3 g/dL (32.0-36.0); MEAN CORPUSCULAR VOLUME 84 fl (80-97); PLATELET COUNT 229 10^3/uL (150-450); RED BLOOD COUNT 3.15 10^6/uL (3.72-5.28); RED CELL DISTRIBUTION WIDTH 18.6 % (11.5-14.0); WHITE BLOOD COUNT 5.6 10^3/uL (4.0-10.5)
[2020-03-02 07:23] LABS: ANION GAP 10 (5-19); BLOOD UREA NITROGEN 42 mg/dL (7-20); CALCIUM 9.4 mg/dL (8.4-10.2); CARBON DIOXIDE 30 mmol/L (22-30); CHLORIDE 98 mmol/L (98-107); GLUCOSE 153 mg/dL (75-110); POTASSIUM 4.8 mmol/L (3.6-5.0)
[2020-03-02] MEDS: INSULIN REG, HUMAN 100 UNIT/ML 3 ML VIAL (PYX) SUBCUT SCH ×4 (07:43→22:18)
[2020-03-02] MEDS: ACETAMINOPHEN 325 MG TABLET PO PRN ×2 (07:43→18:06)
[2020-03-02] MEDS: IPRATROPIUM/ALBUTEROL 0.5-2.5 MG/3 ML AMPUL NEB SCH ×2 (08:03→19:59)
[2020-03-02] MEDS ORDERED: (PENDING PHARMACY ID) (Tiotropium Bromide [Spiriva Handihaler 5 Cap/Kit (18 Mcg/Cap)] 1 IN IH SCH (10:00)
[2020-03-02] MEDS: AMLODIPINE BESYLATE 5 MG TABLET PO SCH (11:44)
[2020-03-02] MEDS: ISOSORBIDE MONONITRATE 30 MG TAB.ER.24H PO SCH (11:45)
[2020-03-02] MEDS: MULTIVITAMIN TABLET PO SCH (11:45)
[2020-03-02] MEDS: ASPIRIN 81 MG TABLET, CHEWABLE PO SCH (11:45)
[2020-03-02] MEDS: ASCORBIC ACID 500 MG TABLET PO SCH ×2 (11:45→18:06)
[2020-03-02] MEDS: METOPROLOL TARTRATE 25 MG TABLET PO SCH ×2 (11:45→22:17)
[2020-03-02] MEDS: CHOLECALCIFEROL (D3) 1,000 UNIT (25 MCG) TABLET PO SCH (11:45)
[2020-03-02] MEDS: FOLIC ACID 1 MG TABLET PO SCH (11:45)
[2020-03-02] MEDS: FUROSEMIDE INJ/PF 20 MG/2 ML SDV IV SCH ×2 (11:46→22:19)
[2020-03-02] MEDS: LISINOPRIL 10 MG TABLET PO SCH (11:46)
[2020-03-02] MEDS: FERROUS SULFATE 325 MG TABLET PO SCH (11:46)
[2020-03-02] MEDS: ENOXAPARIN SODIUM INJ 40 MG/0.4 ML DISP.SYRIN SUBCUT SCH (11:48)
[2020-03-02] MEDS: AZITHROMYCIN 250 MG TABLET PO SCH (12:00)
[2020-03-02] MEDS: GUAIFENESIN 600 MG TABLET.SA PO SCH ×2 (12:00→22:17)
[2020-03-02] MEDS: ALLOPURINOL 300 MG TABLET PO SCH (12:30)
[2020-03-02] MEDS: UMECLIDINIUM BROMIDE 62.5 MCG/DOSE IH SCH (12:30)
[2020-03-02] MEDS: CIPROFLOXACIN HCL 500 MG TABLET PO SCH ×2 (12:30→22:16)
[2020-03-02] MEDS: ZINC SULFATE 220 MG CAPSULE PO SCH (13:10)
--- NOTE | 2020-03-02 14:17 | PDOC PROGRESS REPORT ---
Subjective Date:: 03/02/20 Subjective:: Patient is an 84-year-old female with past medical history of diastolic CHF, COPD on home O2, DM 2, hypertension arthritis, bipolar disorder, depression who was admitted 02/28/2020 with Acute respiratory failure with hypoxia and hypercapnia secondary to acute on chronic diastolic heart failure and COPD exacerbation. 03/02/2020. No acute events overnight. Patient currently receiving no apparent distress, very pleasant and cooperative with physical examination, denies any fever, chills, nausea, vomiting. Reason For Visit: COPD EXACERBATION, ACUTE DECOMPENSATED HEART Physical Exam Vital Signs: Temp Pulse Resp BP Pulse Ox 97.5 F 73 18 148/72 H 100 03/02/20 11:33 03/02/20 11:33 03/02/20 11:33 03/02/20 11:33 03/02/20 11:33 Intake & Output 03/01/20 03/02/20 03/03/20 06:59 06:59 06:59 Intake Total 942 240 480 Output Total 2223 9595 Balance -1283 -2535 480 Weight 90.4 kg 90.4 kg General appearance: PRESENT: no acute distress, obese, well-developed, well- nourished Head exam: PRESENT: atraumatic, normocephalic Respiratory exam: PRESENT: clear to auscultation choco. ABSENT: rales, rhonchi, wheezes Cardiovascular exam: PRESENT: RRR. ABSENT: diastolic murmur, rubs, systolic murmur GI/Abdominal exam: PRESENT: normal bowel sounds, soft. ABSENT: distended, guarding, mass, organolmegaly, rebound, tenderness Gentrourinary exam: PRESENT: indwelling catheter Neurological exam: PRESENT: alert, awake, oriented to person, oriented to place, CN II-XII grossly intact. ABSENT: motor sensory deficit Results Laboratory Results: 03/02/20 06:06 03/02/20 06:06 03/02/20 03/02/20 06:06 06:06 WBC 5.6 RBC 3.15 L Hgb 8.8 L Hct 26.3 L MCV 84 MCH 27.8 MCHC 33.3 RDW 18.6 H Plt Count 229 Sodium 138.2 Potassium 4.8 Chloride 98 Carbon Dioxide 30 Anion Gap 10 BUN 42 H Creatinine 0.84 Est GFR ( Amer) > 60 Glucose 153 H Calcium 9.4 02/28/20 16:41 Catheterized Urine Urine Culture - Final Escherichia Coli 02/28/20 02/28/20 15:15 15:15 Creatine Kinase < 20 L Troponin I < 0.012 NT-Pro-B Natriuret Pep 1130 H Impressions: Chest X-Ray 02/28/20 15:53 IMPRESSION: Cardiomegaly. Vascular congestion and interstitial edema. Small bilateral pleural effusions. Diffuse bilateral airspace opacities, may be secondary to pneumonia and/or pulmonary edema. Chest/Abdomen CTA 02/28/20 21:14 IMPRESSION: 1. Cardiomegaly with bilateral pleural effusions and bilateral groundglass opacities and septal thickening most consistent with changes of CHF. Imaging features can be seen with viral pneumonia, though are nonspecific and can occur with a variety of infectious and noninfectious processes. [PneInd] Reference: https://pubs.rsna.org/doi/full/10.1148/ryct.9377621587 2. No evidence of pulmonary embolus. 3. Heterogeneous thyroid goiter which typically would warrant follow-up thyroid ultrasound although in this age patient please correlate clinically as to whether or not this is warranted or not as below. Recommendations for f/u of Incidental Thyroid Nodules (ITN) found on CT, MRI, NM and Extrathyroidal US based on the ACR white paper and Vaughn 3-tiered system for managing ITNs: 1. Further evaluation by thyroid US recommended for: o Solitary ITN with high risk imaging features (locally invasive nodule or suspicious lymph nodes) o Solitary ITN of any size in pediatric patients <= 18 years of age o Solitary ITN >= 1 cm in axial plane in patients > 18 and < 35 years of age o Solitary ITN >= 1.5 cm in axial plane in patients >= 35 years of age o Heterogeneous enlarged thyroid gland o ITN avid on FDG-PET or other nuclear medicine (MIBI and octreotide) scans. FNA biopsy is also recommended for PET avid nodules. 2. For multiple thyroid nodules, the above recommendations for solitary ITN are to be applied to the largest nodule. 3. No US or f/u recommended for ITNs without high risk features in patients with limited life expectancy or significant co-morbidities, unless clinically warranted. 4. These recommendations do not apply to patients with increased risk for thyroid cancer or to patients with symptomatic thyroid disease. Assessment and Plan - Diagnosis (1) COPD with acute exacerbation Is this a current diagnosis for this admission?: Yes Plan: Improved; lung sounds now clear. Patient reports dyspnea at rest has resolved. Does have a slight nonproductive cough. Patient has COPD and is dependent on home oxygen 3 L/min On presentation patient was wheezing per ED physician Chest x-ray shows cardiomegaly, interstitial edema Patient is admitted to the medical floor on continuous cardiac telemetry. Will provide supplemental oxygen and BiPAP as needed to maintain saturations greater than 89%. Start on scheduled and as needed nebulizer treatments. Provide IV Solu-Medrol; decrease dose today. Mucinex twice daily. Robitussin as needed. Pulmonary toilet with incentive spirometer, flutter valve, and ambulation. (2) Acute on chronic diastolic heart failure Is this a current diagnosis for this admission?: Yes Plan: Improved symptoms; no orthopnea, leg edema has resolved. BNP was elevated at 1130 Echocardiography done 2017 showed normal EF with grade 2 diastolic dysfunction and moderate aortic stenosis Chest x-ray shows cardiomegaly with interstitial edema Supplemental oxygen and BiPAP as needed to maintain saturations >89% Patient is placed on daily statin and aspirin therapy. We will continue her home dose antihypertensives with metoprolol, amlodipine, and lisinopril. Home dose isosorbide. Diurese with IV furosemide; decrease dose today. Cardiac diet. Fluid restricted. Daily weights, strict I&O's. (3) Acute on chronic respiratory failure with hypoxia and hypercapnia Is this a current diagnosis for this admission?: Yes Plan: Improving. Secondary to #1 & 2 ABG s are improved following BiPAP. Now w/ compensated respiratory acidosis. CTA chest revealed cardiomegaly with bilateral pleural effusions and bilateral groundglass opacities. Evaluation and management as above. (4) Aortic stenosis Is this a current diagnosis for this admission?: Yes Plan: Patient has a grade 2 systolic ejection murmur at left fourth intercostal space 2D echo in 2017 showed moderate aortic stenosis Will consider repeat echo while inpatient Outpatient follow-up with cardiology Avoid rapid fluid volume changes. (5) Hypertension Qualifiers: Hypertension type: essential hypertension Qualified Code(s): I10 - Essential (primary) hypertension Is this a current diagnosis for this admission?: Yes Plan: Blood pressure currently at target Continue home medications (6) Hypertension Qualifiers: Hypertension type: essential hypertension Qualified Code(s): I10 - Essential (primary) hypertension Is this a current diagnosis for this admission?: Yes (7) Hypomagnesemia Is this a current diagnosis for this admission?: Yes Plan: Serum magnesium level was 1.5 Replete with magnesium sulfate and monitor serum magnesium level (8) Suspected COVID-19 virus infection Is this a current diagnosis for this admission?: Yes Plan: Ruled out. COVID-19 testing is negative. She reports that she might have contact history at her local [employer] Ferritin 62, LDH 164, CRP 19.4 (9) Type 2 diabetes mellitus Qualifiers: Diabetes mellitus complication status: with hyperglycemia Is this a current diagnosis for this admission?: Yes Plan: Holding oral medications while admitted. We will check A1c with a.m. lab work. Patient is placed on a consistent carb diet. Accu-Cheks before meals and at bedtime with Humalog for sliding scale coverage. Hypoglycemia protocol in place. (10) UTI (urinary tract infection) Qualifiers: Urinary tract infection type: site unspecified Hematuria presence: without hematuria Qualified Code(s): N39.0 - Urinary tract infection, site not specified Is this a current diagnosis for this admission?: Yes Plan: Due to E. coli pansensitive. Day 2 of p.o. ciprofloxacin. - Time Time Spent with patient: 35 or more minutes Medications reviewed and adjusted accordingly: Yes Anticipated Discharge Disposition: Home with Home Health Anticipated Discharge Timeframe: within 24 hours
[2020-03-02] MEDS ORDERED: SULFAMETHOXAZOLE/TRIMETHOPRIM 800-160 MG TABLET PO SCH (18:00)
[2020-03-02] MEDS: QUETIAPINE FUMARATE 25 MG TABLET PO SCH (18:06)
[2020-03-02] MEDS: ATORVASTATIN CALCIUM 40 MG TABLET PO SCH (22:17)
[2020-03-02] MEDS: MELATONIN 3 MG TABLET PO SCH (22:17)
[2020-03-03] MEDS: METHYLPREDNISOLONE INJ 40 MG/1 ML SDV IV SCH ×2 (05:13→14:03)
[2020-03-03] MEDS: INSULIN REG, HUMAN 100 UNIT/ML 3 ML VIAL (PYX) SUBCUT SCH ×2 (07:30→12:10)
[2020-03-03] MEDS: IPRATROPIUM/ALBUTEROL 0.5-2.5 MG/3 ML AMPUL NEB SCH (08:33)
[2020-03-03] MEDS: ASPIRIN 81 MG TABLET, CHEWABLE PO SCH (11:18)
[2020-03-03] MEDS: MULTIVITAMIN TABLET PO SCH (11:18)
[2020-03-03] MEDS: METOPROLOL TARTRATE 25 MG TABLET PO SCH (11:18)
[2020-03-03] MEDS: LISINOPRIL 10 MG TABLET PO SCH (11:18)
[2020-03-03] MEDS: GUAIFENESIN 600 MG TABLET.SA PO SCH (11:20)
[2020-03-03] MEDS: FOLIC ACID 1 MG TABLET PO SCH (11:20)
[2020-03-03] MEDS: ISOSORBIDE MONONITRATE 30 MG TAB.ER.24H PO SCH (11:20)
[2020-03-03] MEDS: AMLODIPINE BESYLATE 5 MG TABLET PO SCH (11:20)
[2020-03-03] MEDS: CHOLECALCIFEROL (D3) 1,000 UNIT (25 MCG) TABLET PO SCH (11:21)
[2020-03-03] MEDS: FERROUS SULFATE 325 MG TABLET PO SCH (11:21)
[2020-03-03] MEDS: ASCORBIC ACID 500 MG TABLET PO SCH (11:21)
[2020-03-03] MEDS: ENOXAPARIN SODIUM INJ 40 MG/0.4 ML DISP.SYRIN SUBCUT SCH (11:21)
[2020-03-03] MEDS: CIPROFLOXACIN HCL 500 MG TABLET PO SCH (11:22)
[2020-03-03] MEDS: UMECLIDINIUM BROMIDE 62.5 MCG/DOSE IH SCH (11:22)
[2020-03-03] MEDS: FUROSEMIDE INJ/PF 20 MG/2 ML SDV IV SCH (11:23)
[2020-03-03] MEDS: ALLOPURINOL 300 MG TABLET PO SCH (11:24)
[2020-03-03] MEDS: ZINC SULFATE 220 MG CAPSULE PO SCH (11:24)
[2020-03-03] MEDS: AZITHROMYCIN 250 MG TABLET PO SCH (11:24)
[2020-03-03 13:20] VITALS: BP 140/62
[2020-03-03] MEDS ORDERED: CIPROFLOXACIN HCL 500 MG TABLET PO ONE (15:00)
--- NOTE | 2020-03-06 09:03 | PDOC DISCHARGE SUMMARY ---
Impression - Admit/DC Date/PCP Admission Date/Primary Care Provider: 02/28/20 21:19 FLORES PERSAUD DO Discharge Date: 03/06/20 - Discharge Diagnosis (1) COPD with acute exacerbation Is this a current diagnosis for this admission?: Yes (2) Acute on chronic diastolic heart failure Is this a current diagnosis for this admission?: Yes (3) Acute on chronic respiratory failure with hypoxia and hypercapnia Is this a current diagnosis for this admission?: Yes (4) Aortic stenosis Is this a current diagnosis for this admission?: Yes (5) Hypertension Is this a current diagnosis for this admission?: Yes (6) Hypertension Is this a current diagnosis for this admission?: Yes (7) Hypomagnesemia Is this a current diagnosis for this admission?: Yes (8) Suspected COVID-19 virus infection Is this a current diagnosis for this admission?: Yes (9) Type 2 diabetes mellitus Is this a current diagnosis for this admission?: Yes (10) UTI (urinary tract infection) Is this a current diagnosis for this admission?: Yes - Additional Information Resuscitation Status: Full Code Discharge Diet: Diabetic, Other (Comments) Discharge Activity: Activity As Tolerated, Balance Activity w/Rest, Energy Conservation, Weigh Daily Referrals: FLORES PERSAUD DO [Primary Care Provider] - 03/08/20 2:00 pm () Home Medications: Albuterol Sulfate [Proair HFA Inhalation Aerosol 8.5 gm MDI] 2 puff IH Q6HP PRN 12/16/18 Allopurinol [Zyloprim 300 mg Tablet] 300 mg PO DAILY 12/16/18 Aspirin [Ecotrin 81 mg EC Tablet] 81 mg PO DAILY 12/16/18 Cholestyramine (with Sugar) [Cholestyramine Packet] 4 gm PO BID 12/16/18 Isosorbide Mononitrate [Imdur 30 mg Tablet.er] 30 mg PO DAILY 12/16/18 Metformin HCl [Glucophage 500 mg Tablet] 500 mg PO BIDBS 12/16/18 Metoprolol Tartrate [Lopressor 25 mg Tablet] 25 mg PO Q12 12/16/18 Omeprazole 20 mg PO Q12 12/16/18 Quetiapine Fumarate [Seroquel] 50 mg PO QPM 12/16/18 Tiotropium [place] [Spiriva Handihaler 5 Cap/Kit (18 Mcg/Cap)] 1 inh IH DAILY 12/16/18 Folic Acid [Folvite 1 mg Tablet] 1 mg PO DAILY 07/09/19 Amlodipine Besylate [Norvasc 5 mg Tablet] 5 mg PO DAILY 30 Days #30 tablet 07/11/19 Furosemide [Lasix 40 mg Tablet] 40 mg PO QAM 30 Days #30 tablet 07/11/19 Lisinopril [Zestril] 40 mg PO DAILY 30 Days #30 tablet 07/11/19 Atorvastatin Calcium [Lipitor 40 mg Tablet] 40 mg PO QHS 03/01/20 Spironolactone [Aldactone 25 mg Tablet] 12.5 mg PO DAILY 03/01/20 History of Present Illiness History of Present Illness: As per admitting physician's note patient is an 84-year-old female with past medical history of diastolic CHF, COPD on home O2, DM 2, hypertension arthritis, bipolar disorder, depression who was admitted 02/28/2020 with Acute respiratory failure with hypoxia and hypercapnia secondary to acute on chronic diastolic heart failure and COPD exacerbation. Hospital Course Hospital Course: (1) COPD with acute exacerbation Resolved. Likely baseline. Benign lung examination. Patient has COPD and is dependent on home oxygen 3 L/min On presentation patient was wheezing per ED physician Chest x-ray shows cardiomegaly, interstitial edema Patient was admitted to the medical floor on continuous cardiac telemetry. Provide with supplemental oxygen and BiPAP as needed to maintain saturations greater than 89%. Started on scheduled and as needed nebulizer treatments. Provided IV Solu-Medrol; decrease dose today. Mucinex twice daily. Robitussin as needed. Pulmonary toilet with incentive spirometer, flutter valve, and ambulation. (2) Acute on chronic diastolic heart failure Improved. Euvolemic. BNP was elevated at 1130 on admission. Echocardiography done 2016 showed normal EF with grade 2 diastolic dysfunction and moderate aortic stenosis Chest x-ray shows cardiomegaly with interstitial edema Provided with supplemental oxygen and BiPAP as needed to maintain saturations >89% Patient was placed on daily statin and aspirin therapy. Resumed her home dose antihypertensives with metoprolol, amlodipine, and lisinopril. Was a started on IV furosemide; Cardiac diet. Fluid restricted. Daily weights, strict I&O's. (3) Acute on chronic respiratory failure with hypoxia and hypercapnia Resolved. Secondary to #1 & 2 ABG s are improved following BiPAP. Now w/ compensated respiratory acidosis. CTA chest revealed cardiomegaly with bilateral pleural effusions and bilateral groundglass opacities. Evaluation and management as above. (4) Aortic stenosis Patient has a grade 2 systolic ejection murmur at left fourth intercostal space 2D echo in 2017 showed moderate aortic stenosis No syncope or chest pain. Advised to follow-up with cardiology for repeat echocardiogram. (5) Hypertension Euvolemic. Normotensive. Resume home meds. Advised to follow-up with PCP and resume home meds upon discharge. (6) Hypomagnesemia Replete. (8) Suspected COVID-19 virus infection Ruled out. COVID-19 testing is negative. Ferritin 62, LDH 164, CRP 19.4 (9) Type 2 diabetes mellitus Holding oral medications while admitted. Patient was placed on a consistent carb diet. Accu-Cheks before meals and at bedtime with Humalog for sliding scale coverage. Hypoglycemia protocol in place. (10) UTI (urinary tract infection) Due to E. coli pansensitive. Received 4 days of p.o. ciprofloxacin. Asymptomatic. Physical Exam Vital Signs: Temp Pulse Resp BP Pulse Ox 97.9 F 67 18 140/62 H 99 03/03/20 13:13 03/03/20 13:13 03/03/20 13:13 03/03/20 13:13 03/03/20 13:13 General appearance: PRESENT: no acute distress, obese Respiratory exam: PRESENT: clear to auscultation choco. ABSENT: rales, rhonchi, wheezes GI/Abdominal exam: PRESENT: normal bowel sounds, soft. ABSENT: distended, guarding, mass, organolmegaly, rebound, tenderness Extremities exam: PRESENT: full ROM. ABSENT: calf tenderness, clubbing, pedal edema Neurological exam: PRESENT: alert, awake, oriented to person, oriented to place, oriented to time, oriented to situation, CN II-XII grossly intact. ABSENT: motor sensory deficit Skin exam: PRESENT: dry, intact, warm. ABSENT: cyanosis, rash Results Laboratory Results: WBC 5.6 10^3/uL (4.0-10.5) 03/02/20 06:06 RBC 3.15 10^6/uL (3.72-5.28) L 03/02/20 06:06 Hgb 8.8 g/dL (12.0-15.5) L 03/02/20 06:06 Hct 26.3 % (36.0-47.0) L 03/02/20 06:06 MCV 84 fl (80-97) 03/02/20 06:06 MCH 27.8 pg (27.0-33.4) 03/02/20 06:06 MCHC 33.3 g/dL (32.0-36.0) 03/02/20 06:06 RDW 18.6 % (11.5-14.0) H 03/02/20 06:06 Plt Count 229 10^3/uL (150-450) 03/02/20 06:06 Lymph % (Auto) 28.5 % (13-45) 02/28/20 15:15 [place] % (Auto) 6.4 % (3-13) 02/28/20 15:15 Eos % (Auto) 4.0 % (0-6) 02/28/20 15:15 Baso % (Auto) 0.5 % (0-2) 02/28/20 15:15 Reticulocyte # 0.081 10^6/uL (0.028-0.122) 03/01/20 06:40 Absolute Neuts (auto) 5.0 10^3/uL (1.7-8.2) 02/28/20 15:15 Absolute Lymphs (auto) 2.3 10^3/uL (0.5-4.7) 02/28/20 15:15 Absolute Monos (auto) 0.5 10^3/uL (0.1-1.4) 02/28/20 15:15 Absolute Eos (auto) 0.3 10^3/uL (0.0-0.6) 02/28/20 15:15 Absolute Basos (auto) 0.0 10^3/uL (0.0-0.2) 02/28/20 15:15 Seg Neutrophils % 60.6 % (42-78) 02/28/20 15:15 Retic Count (auto) 2.55 % (0.66-2.85) 03/01/20 06:40 D-Dimer 1.41 ug/mL (0.00-0.50) H 02/28/20 15:15 Carbonic Acid 1.64 mmol/L (1.05-1.35) H 02/29/20 06:20 HCO3/H2CO3 Ratio 18:1 02/29/20 06:20 ABG pH 7.36 (7.35-7.45) 02/29/20 06:20 ABG pCO2 54.6 mmHg (35-45) H 02/29/20 06:20 ABG pO2 82.1 mmHg (80-100) 02/29/20 06:20 ABG HCO3 30.4 mmol/L (20-24) H 02/29/20 06:20 ABG Total CO2 32.0 mmol/L (21-25) H 02/29/20 06:20 ABG O2 Saturation 95.5 % (94-98) 02/29/20 06:20 ABG Base Excess 4.1 mmol/L 02/29/20 06:20 FiO2 45% 02/29/20 06:20 Sodium 138.2 mmol/L (137-145) 03/02/20 06:06 Potassium 4.8 mmol/L (3.6-5.0) 03/02/20 06:06 Chloride 98 mmol/L (98-107) 03/02/20 06:06 Carbon Dioxide 30 mmol/L (22-30) 03/02/20 06:06 Anion Gap 10 (5-19) 03/02/20 06:06 BUN 42 mg/dL (7-20) H 03/02/20 06:06 Creatinine 0.84 mg/dL (0.52-1.25) 03/02/20 06:06 Est GFR ( Amer) > 60 (>60) 03/02/20 06:06 Est GFR (MDRD) Non-Af > 60 (>60) 03/02/20 06:06 Glucose 153 mg/dL (75-110) H 03/02/20 06:06 POC Glucose 167 mg/dL (70-110) H 03/03/20 11:02 Calcium 9.4 mg/dL (8.4-10.2) 03/02/20 06:06 Magnesium 1.5 mg/dL (1.6-2.3) L 02/29/20 05:40 Iron 23.8 ug/dL (37-170) L 03/01/20 06:40 TIBC 406 ug/dL (250-450) 03/01/20 06:40 % Saturation 6 % 03/01/20 06:40 Ferritin 62.60 ng/mL (11.1-264.0) 03/01/20 06:40 Total Bilirubin 0.5 mg/dL (0.2-1.3) 02/28/20 15:15 Direct Bilirubin 0.2 mg/dL (0.0-0.4) 02/28/20 15:15 Neonat Total Bilirubin Not Reportable 02/28/20 15:15 Neonat Direct Bilirubin Not Reportable 02/28/20 15:15 Neonat Indirect Bili Not Reportable 02/28/20 15:15 AST 19 U/L (14-36) 02/28/20 15:15 ALT 11 U/L (<35) 02/28/20 15:15 Alkaline Phosphatase 94 U/L (38-126) 02/28/20 15:15 Lactate Dehydrogenase 164 U/L (120-246) 02/29/20 09:00 Creatine Kinase < 20 U/L (30-135) L 02/28/20 15:15 Troponin I < 0.012 ng/mL 02/28/20 15:15 C-Reactive Protein 19.4 mg/L (<10.0) H 02/29/20 09:00 NT-Pro-B Natriuret Pep 1130 pg/mL (<450) H 02/28/20 15:15 Total Protein 7.1 g/dL (6.3-8.2) 02/28/20 15:15 Albumin 3.9 g/dL (3.5-5.0) 02/28/20 15:15 Vitamin B12 597.0 pg/mL (239-931) 03/01/20 06:40 Folate > 20.00 ng/mL (>2.76) 03/01/20 06:40 Urine Color YELLOW 02/28/20 16:41 Urine Appearance CLEAR 02/28/20 16:41 Urine pH 5.0 (5.0-9.0) 02/28/20 16:41 Ur Specific [place] 1.015 02/28/20 16:41 Urine Protein 30 mg/dL (NEGATIVE) H 02/28/20 16:41 Urine Glucose (UA) NEGATIVE mg/dL (NEGATIVE) 02/28/20 16:41 Urine Ketones NEGATIVE mg/dL (NEGATIVE) 02/28/20 16:41 Urine Blood NEGATIVE (NEGATIVE) 02/28/20 16:41 Urine Nitrite NEGATIVE (NEGATIVE) 02/28/20 16:41 Urine Bilirubin NEGATIVE (NEGATIVE) 02/28/20 16:41 Urine Urobilinogen NEGATIVE mg/dL (<2.0) 02/28/20 16:41 Ur Leukocyte Esterase TRACE (NEGATIVE) H 02/28/20 16:41 Urine WBC (Auto) 13 /HPF 02/28/20 16:41 Urine RBC (Auto) 1 /HPF 02/28/20 16:41 Urine Bacteria (Auto) 3+ /HPF 02/28/20 16:41 Squamous Epi Cells Auto 2 /HPF 02/28/20 16:41 Urine Mucus (Auto) OCC /LPF 02/28/20 16:41 Urine Ascorbic Acid NEGATIVE (NEGATIVE) 02/28/20 16:41 COVID-19 Source See comment 02/29/20 03:01 COVID-19 ([facility]AR[facility]) Not Detected (Not Detect) 02/29/20 03:01 02/28/20 15:15 Troponin I < 0.012 NT-Pro-B Natriuret Pep 1130 H Impressions: Chest X-Ray 02/28/20 15:53 IMPRESSION: Cardiomegaly. Vascular congestion and interstitial edema. Small bilateral pleural effusions. Diffuse bilateral airspace opacities, may be secondary to pneumonia and/or pulmonary edema. Chest/Abdomen CTA 02/28/20 21:14 IMPRESSION: 1. Cardiomegaly with bilateral pleural effusions and bilateral groundglass opacities and septal thickening most consistent with changes of CHF. Imaging features can be seen with viral pneumonia, though are nonspecific and can occur with a variety of infectious and noninfectious processes. [PneInd] Reference: https://pubs.rsna.org/doi/full/10.1148/ryct.8847818262 2. No evidence of pulmonary embolus. 3. Heterogeneous thyroid goiter which typically would warrant follow-up thyroid ultrasound although in this age patient please correlate clinically as to whether or not this is warranted or not as below. Recommendations for f/u of Incidental Thyroid Nodules (ITN) found on CT, MRI, NM and Extrathyroidal US based on the ACR white paper and Vaughn 3-tiered system for managing ITNs: 1. Further evaluation by thyroid US recommended for: o Solitary ITN with high risk imaging features (locally invasive nodule or suspicious lymph nodes) o Solitary ITN of any size in pediatric patients <= 18 years of age o Solitary ITN >= 1 cm in axial plane in patients > 18 and < 35 years of age o Solitary ITN >= 1.5 cm in axial plane in patients >= 35 years of age o Heterogeneous enlarged thyroid gland o ITN avid on FDG-PET or other nuclear medicine (MIBI and octreotide) scans. FNA biopsy is also recommended for PET avid nodules. 2. For multiple thyroid nodules, the above recommendations for solitary ITN are to be applied to the largest nodule. 3. No US or f/u recommended for ITNs without high risk features in patients with limited life expectancy or significant co-morbidities, unless clinically warranted. 4. These recommendations do not apply to patients with increased risk for thyroid cancer or to patients with symptomatic thyroid disease. Stroke Is this a Stroke Patient?: No Acute Heart Failure Is this a Heart Failure Patient?: No
== END 2020-03-03 15:08 | disposition home health service (06) | DRG 291 ==
LOC: ER 14:51 → EH 21:19 → 3W 02-29 01:25 → 3N 02-29 15:09 → 4W 03-01 13:12
PROVIDERS: ADMIT Student in an Organized Health Care Education/Training Program; ATTEND Internal Medicine
PROC: 5A09557 Assistance with Respiratory Ventilation, Greater than 96 Consecutive Hours, Continuous Positive Airway Pressure (ICD-10-PCS; principal; 2020-02-28)
DX: I11.0 Hypertensive heart disease with heart failure (principal); J96.02 Acute respiratory failure with hypercapnia; J96.01 Acute respiratory failure with hypoxia; J44.1 Chronic obstructive pulmonary disease with (acute) exacerbation; N39.0 Urinary tract infection, site not specified; I50.33 Acute on chronic diastolic (congestive) heart failure; E78.5 Hyperlipidemia, unspecified; Z90.12 Acquired absence of left breast and nipple; Z20.828 Contact with and (suspected) exposure to other viral communicable diseases; E11.65 Type 2 diabetes mellitus with hyperglycemia; D64.9 Anemia, unspecified; M19.90 Unspecified osteoarthritis, unspecified site; I35.0 Nonrheumatic aortic (valve) stenosis; E83.42 Hypomagnesemia; E66.9 Obesity, unspecified; F32.9 Major depressive disorder, single episode, unspecified; B96.20 Unspecified Escherichia coli [E. coli] as the cause of diseases classified elsewhere; Z90.49 Acquired absence of other specified parts of digestive tract; Z87.891 Personal history of nicotine dependence; Z99.81 Dependence on supplemental oxygen; Z83.3 Family history of diabetes mellitus; Z85.3 Personal history of malignant neoplasm of breast; Z88.0 Allergy status to penicillin; Z68.36 Body mass index [BMI] 36.0-36.9, adult; Z79.84 Long term (current) use of oral hypoglycemic drugs
CPT/HCPCS: 36415; 71045; 71275; 80048; 80053; 81001; 82550; 82607; 82728; 82746; 82803; 82962; 83540; 83550; 83615; 83735; 83880; 84484; 85025; 85027; 85045; 85379; 86140; 87040; 87077; 87086; 87088; 87150; 87186; 87635; 93005; 93010; 94660; 94667; 94799; 96374; 96375; 99285; C9803; J1100; J1650; J1815; J1940; J2270; J2405; J2920; J3490; J7512